=== PATIENT | male | born 1940 | race Caucasian/White ===

== ENCOUNTER 2023-10-29 15:45 | Inpatient (IN) | payer OTHER, SELFPAY ==
[2023-10-29 10:28] VITALS: BP 131/55
--- NOTE | 2023-10-29 12:18 | ED.GENMED ---
History of Present Illness
<GALINDO Chisholm Jr. Last Filed: 10/29/23 13:54>
General
Chief Complaint: Skin Problem
Source: patient
Exam Limitations: none
Time Seen by Provider: 10/29/23 10:45
Nursing documentation reviewed up to this point in time: agreed with
History of Present Illness
History of Present Illness:
83-year-old male with past medical history of chronic vascular disease CHF CAD, diabetes presenting to the emergency department today with concerns of some swelling increasing to the left leg as well as some clear yellow drainage earlier today as
well. Has been treated for possible right leg with Keflex over the past week. Denies any systemic symptoms chest pain shortness of breath nausea vomiting a fevers
Past History
<Peter Christensen Jr., PA-C - Last Filed: 10/29/23 13:54>
Past History
ED Past Medical History: CAD, HTN, Hypercholesterolemia and Other (Ischemic cardiomyopathy EF of 40%, her excisional atrial fib status post pacer defibrillator, inducible VT, hypertension)
ED Past Surgical History: Cardiac
Social History
Tobacco: Non-smoker
Alcohol: Occasional
Drug: None
Personal: Single
Living: with family
Employment: Retired
Family History
Family History: Other (Mother with gout and presumed diabetes)
Review of Systems
<GALINDO Chisholm Jr. Last Filed: 10/29/23 13:54>
Review of Systems
Allergies reviewed?: Yes
All Other Systems: ROS reviewed and negative except as documented in HPI and ROS
Phy Exam
<GALINDO Chisholm Jr. Last Filed: 10/29/23 13:54>
Physical Exam
Physical Exam:
GENERAL: Alert , in no apparent distress
EYE: pupils equal and reactive
NECK: Supple, no significant adenopathy.
ENT: o/p clr, mmm.
CARDIAC: Regular rate and rhythm .
LUNGS: Clear breath sounds bilaterally, no acute respiratory distress, no wheezes/rales/rhonchi
ABDOMEN: Soft, without focal tenderness, no r/g, no cvat
NEUROLOGICAL: Alert and oriented, no focal neuro deficits
SKIN: Significant skin changes to the lower extremities bilaterally mainly distal to the knee covering most of the you and posterior calf region with reddened hardened skin changes with dry peeling skin no significant tenderness palpation +2
pitting edema distal to the knees bilaterally. Does not cross into the feet bilaterally. There are some slight vague redness into the feet bilaterally. No significant tenderness to palpation bilaterally.
MUSCULOSKELETAL: No edema, well perfused.
PSYCH: Normal and appropriate interaction.
Course
<Peter Christensen Jr., PA-Maxx - Last Filed: 10/29/23 13:54>
Orders/Labs/Results
Orders:
Orders
10/29/23 Breakfast
2000 calorie (17 carb) Diabetic
At Your Request: Limited Participation
Fluid Restriction: 1500 mL/day (50 oz)
10/29/23 11:59
BMP [Basic Metabolic Panel] Urgent
10/29/23 12:34
Complete Blood Count/With Diff Urgent
10/29/23 14:42
Vancomycin [Vancocin] 2,000 mg 0.9% Sodium Chloride 500 ml [Nss] 500 ml IV NOW
10/29/23 15:21
Admit/Transfer Patient As Directed
Co-Sign Provider:
Level of Care: Inpatient admission
Assign to:: Telemetry
Physician / Group: elvis
Diagnosis: cellulits
Reason for Telemetry: Other
Other Reason for Telemetry: CHf
Date to Stop Telemetry: 10/31/23
Time to Stop Telemetry: 11:00
Reason for Hospitalization: cellulitis
Expected length of stay greater than two midnights?: Yes
ELOS- Estimated Length of Stay in days: 3
I certify the patient meets the requirements for IP care: Yes
10/29/23 15:22
PRN Pain Medication Management As Directed
May give lesser potent ordered pain med per pt: Yes
preference::
Protocol:: Medication orders for pain may be administered in a
manner that supports deferring to patient preference
when the pt is:
- Requesting an ordered lesser potent pain medication.
Least to most potent pain medications are defined
as: acetaminophen < NSAID < tramadol < opioids
(morphine, oxycodone, hydromorphone).
- Requesting a lesser dose of the same medication IF
ORDERED.
- Requesting a less intrusive route of administration
if both routes are prescribed by the provider (PO <
IV).
10/29/23 15:25
Code Status As Directed
Resuscitation Status: Full Code
10/29/23 15:32
Furosemide [Lasix] 40 mg IV NOW STA
10/29/23 16:10
Potassium Stat
10/29/23 19:42
Acetaminophen [Tylenol] 650 mg PO Q4HPRN PRN
Polyethylene Glycol Powder [Miralax] 17 grams PO DAILYPRN PRN
10/29/23 19:42
INFECTIOUS DISEASE CONSULT Routine
Consulting Provider: Zeynep Woodson
Was physician already notified: Yes
Activity As Directed
Activity Level: Out of Bed-Early Mobility
Intake/ Output As Directed
Frequency: Per unit guidelines
Vital Signs As Directed
Frequency: Per unit guidelines
Weight As Directed
Frequency: Daily
Ot Eval And Treat Routine
Pt Eval And Treat Routine
Activity Level: As Tolerated
DX Deep Vein Thrombosis Video Routine
10/29/23 20:00
Heparin 5,000 units SC Q12
HydrALAZINE [Apresoline] 25 mg PO BID
Pantoprazole [Protonix] 40 mg PO BID
10/29/23 22:00
Triamcinolone Cream [Aristocort/Triamcinolone 0.1% Cream] 1 applic TOPICAL TID
10/30/23 05:35
Basic Metabolic Panel IN AM
Complete Blood Count/No Diff IN AM
10/30/23 08:00
Allopurinol [Zyloprim] 300 mg PO DAILY
Amantadine [Symmetrel] 100 mg PO DAILY
Aspirin Low Dose EC [Aspir Low (Enteric Coated)] 81 mg PO DAILY
Metoprolol Xl [Toprol Xl] 100 mg PO DAILY
Sertraline HCl [Zoloft] 50 mg PO DAILY
Tamsulosin [Flomax] 0.4 mg PO DAILY
10/30/23 18:00
Atorvastatin [Lipitor] 20 mg PO QPM
10/31/23 06:00
Basic Metabolic Panel IN AM
Complete Blood Count/No Diff IN AM
10/31/23 11:00
DC Protocol for Telemetry ONCE
11/01/23 06:00
Basic Metabolic Panel IN AM
Complete Blood Count/No Diff IN AM
11/02/23 06:00
Basic Metabolic Panel IN AM
Complete Blood Count/No Diff IN AM
11/03/23 06:00
Basic Metabolic Panel IN AM
Abnormal Lab Results
10/29/23 10/29/23
11:59 12:34
RBC 3.63 L 10^6/uL
(4.70-6.10)
Hgb 11.4 L g/dL
(13.0-18.0)
Hct 34.4 L %
(39.0-52.0)
MCV 94.8 H fL
(80.0-94.0)
MCH 31.4 H pg
(27.0-31.0)
RDW 15.7 H %
(11.5-14.5)
MPV 10.7 H fL
(7.4-10.4)
Absolute Lymphs (auto) 1.1 L 10^3/uL
(1.2-3.4)
Absolute Monos (auto) 0.7 H 10^3/uL
(0.1-0.6)
Lymphocytes % 13.5 L %
(20.5-51.1)
BUN 49 H mg/dl
(9-20)
Creatinine 1.4 H mg/dL
(0.7-1.3)
Glucose 117 H mg/dl
(70-99)
10/29/23 12:34
10/29/23 11:59
Vital Signs
Initial and Last Documented VS:
Initial Vital Signs
Temp Pulse Resp BP Pulse Ox
98 F 60 16 131/55 98
10/29/23 10:28 10/29/23 10:28 10/29/23 10:28 10/29/23 10:28 10/29/23 10:28
Last Documented Vital Signs
Temp Pulse Resp BP Pulse Ox
98.1 F 61 18 110/52 93
10/30/23 23:19 10/30/23 23:19 10/30/23 23:19 10/30/23 23:19 10/30/23 23:19
<Maty Flores, - Last Filed: 10/31/23 01:07>
Orders/Labs/Results
Orders:
Orders
10/29/23 Breakfast
2000 calorie (17 carb) Diabetic
At Your Request: Limited Participation
Fluid Restriction: 1500 mL/day (50 oz)
10/29/23 11:59
BMP [Basic Metabolic Panel] Urgent
10/29/23 12:34
Complete Blood Count/With Diff Urgent
10/29/23 14:42
Vancomycin [Vancocin] 2,000 mg 0.9% Sodium Chloride 500 ml [Nss] 500 ml IV NOW
10/29/23 15:21
Admit/Transfer Patient As Directed
Co-Sign Provider:
Level of Care: Inpatient admission
Assign to:: Telemetry
Physician / Group: elvis
Diagnosis: cellulits
Reason for Telemetry: Other
Other Reason for Telemetry: CHf
Date to Stop Telemetry: 10/31/23
Time to Stop Telemetry: 11:00
Reason for Hospitalization: cellulitis
Expected length of stay greater than two midnights?: Yes
ELOS- Estimated Length of Stay in days: 3
I certify the patient meets the requirements for IP care: Yes
10/29/23 15:22
PRN Pain Medication Management As Directed
May give lesser potent ordered pain med per pt: Yes
preference::
Protocol:: Medication orders for pain may be administered in a
manner that supports deferring to patient preference
when the pt is:
- Requesting an ordered lesser potent pain medication.
Least to most potent pain medications are defined
as: acetaminophen < NSAID < tramadol < opioids
(morphine, oxycodone, hydromorphone).
- Requesting a lesser dose of the same medication IF
ORDERED.
- Requesting a less intrusive route of administration
if both routes are prescribed by the provider (PO <
IV).
10/29/23 15:25
Code Status As Directed
Resuscitation Status: Full Code
10/29/23 15:32
Furosemide [Lasix] 40 mg IV NOW STA
10/29/23 16:10
Potassium Stat
10/29/23 19:42
Acetaminophen [Tylenol] 650 mg PO Q4HPRN PRN
Polyethylene Glycol Powder [Miralax] 17 grams PO DAILYPRN PRN
10/29/23 19:42
INFECTIOUS DISEASE CONSULT Routine
Consulting Provider: Zeynep Woodson
Was physician already notified: Yes
Activity As Directed
Activity Level: Out of Bed-Early Mobility
Intake/ Output As Directed
Frequency: Per unit guidelines
Vital Signs As Directed
Frequency: Per unit guidelines
Weight As Directed
Frequency: Daily
Ot Eval And Treat Routine
Pt Eval And Treat Routine
Activity Level: As Tolerated
DX Deep Vein Thrombosis Video Routine
10/29/23 20:00
Heparin 5,000 units SC Q12
HydrALAZINE [Apresoline] 25 mg PO BID
Pantoprazole [Protonix] 40 mg PO BID
10/29/23 22:00
Triamcinolone Cream [Aristocort/Triamcinolone 0.1% Cream] 1 applic TOPICAL TID
10/30/23 05:35
Basic Metabolic Panel IN AM
Complete Blood Count/No Diff IN AM
10/30/23 08:00
Allopurinol [Zyloprim] 300 mg PO DAILY
Amantadine [Symmetrel] 100 mg PO DAILY
Aspirin Low Dose EC [Aspir Low (Enteric Coated)] 81 mg PO DAILY
Metoprolol Xl [Toprol Xl] 100 mg PO DAILY
Sertraline HCl [Zoloft] 50 mg PO DAILY
Tamsulosin [Flomax] 0.4 mg PO DAILY
10/30/23 18:00
Atorvastatin [Lipitor] 20 mg PO QPM
10/31/23 06:00
Basic Metabolic Panel IN AM
Complete Blood Count/No Diff IN AM
10/31/23 11:00
DC Protocol for Telemetry ONCE
11/01/23 06:00
Basic Metabolic Panel IN AM
Complete Blood Count/No Diff IN AM
11/02/23 06:00
Basic Metabolic Panel IN AM
Complete Blood Count/No Diff IN AM
11/03/23 06:00
Basic Metabolic Panel IN AM
Abnormal Lab Results
10/29/23 10/29/23
11:59 12:34
RBC 3.63 L 10^6/uL
(4.70-6.10)
Hgb 11.4 L g/dL
(13.0-18.0)
Hct 34.4 L %
(39.0-52.0)
MCV 94.8 H fL
(80.0-94.0)
MCH 31.4 H pg
(27.0-31.0)
RDW 15.7 H %
(11.5-14.5)
MPV 10.7 H fL
(7.4-10.4)
Absolute Lymphs (auto) 1.1 L 10^3/uL
(1.2-3.4)
Absolute Monos (auto) 0.7 H 10^3/uL
(0.1-0.6)
Lymphocytes % 13.5 L %
(20.5-51.1)
BUN 49 H mg/dl
(9-20)
Creatinine 1.4 H mg/dL
(0.7-1.3)
Glucose 117 H mg/dl
(70-99)
10/29/23 12:34
10/29/23 11:59
Vital Signs
Initial and Last Documented VS:
Initial Vital Signs
Temp Pulse Resp BP Pulse Ox
98 F 60 16 131/55 98
10/29/23 10:28 10/29/23 10:28 10/29/23 10:28 10/29/23 10:28 10/29/23 10:28
Last Documented Vital Signs
Temp Pulse Resp BP Pulse Ox
98.1 F 61 18 110/52 93
10/30/23 23:19 10/30/23 23:19 10/30/23 23:19 10/30/23 23:19 10/30/23 23:19
<Peter Christensen Jr., PA-C - Last Filed: 10/29/23 13:54>
MDM/Problems Addressed
MDM/Problems Addressed:
83-year-old male presenting to the emergency department with concerns potential worsening redness and swelling to the lower extremities bilaterally left worse than the right. Recently treated for possible cellulitis with Keflex over the past week
for the right side. Has been followed closely by his primary care doctor. I did discuss this with the primary care doctor, Dr. Garcia. He believes that the legs today look worse than they have concerning for possibly worsening infection.
Considering he has been on an appropriate antibiotic for 1 week plan to treat with IV antibiotics
<Peter Christensen Jr., PA-C - Last Filed: 10/29/23 13:54>
*Critical Care Note
Total Time (30-74mins, 75-104mins- exclusive of procedures): Not Applicable
ED Attending Note
<Peter Christensen Jr., PA-C - Last Filed: 10/29/23 13:54>
-
Portions of this chart may have been created with voice recognition software.� Occasional wrong word or��sound alike� substitutions may have occurred due to the inherent limitations of voice recognition software.
<Maty Flores DO - Last Filed: 10/31/23 01:07>
ED Attending Note
Patient seen and examined by attending physician: Yes
I performed the substantive portion of visit, reviewed & personally made and approve the management plan that is documented in note by myself or ROMULO.: Yes
ED Attending Note:
I have reviewed and agree with Peter Christensen PA-C history and treatment plan. My exam revealed bilateral lower extremity edema and erythema weeping serous drainage. Heart RRR, lungs clear with no wheezing or rales, speaking full unlabored sentences.
?venous stasis vs cellulitis. Pt states he has been compliant with lasix. Given patient has been on keflex for 1 week and PCP who has been following patient's progress daily states wounds appear worse, admit for IV antibiotics.
Discharge Plan
Departure
Patient Disposition: Admit
Date of Disposition: 10/29/23
Time of Disposition: 13:54
Admit to: Med/Surg
Admit to doctor: Madeleine
Presentation/result/management discussed w/ accepting MD/DO: Hospitalist
Patient with high blood pressure during this ER visit?: No
Condition: Good
Covid-19: Not Applicable
Discharge Problem:
Cellulitis
Interventions
Interventions:
*Risk Screen - Suicide Last Done: 10/29/23 11:01
*General Assessment Last Done: 10/29/23 11:01
*Neglect/Abuse Screening Last Done: 10/29/23 11:01
*ED COVID-19 Vaccine History Last Done: 10/29/23 20:36
*Nursing Disposition Last Done: 10/29/23 19:23
ED-Skin Assessment Last Done: 10/29/23 11:01
Discharge Date and Time
Discharge Date/Time: 10/29/23 19:25
[2023-10-29 12:27] LABS: Blood Urea Nitrogen 49 mg/dl (9-20); Calcium 9.2 mg/dl (8.4-10.2); Carbon Dioxide 27 mmol/L (22-30); Chloride 104 mmol/L (98-107); Glucose 117 mg/dl (70-99); Sodium 139 mmol/L (135-145); eGFR 50.18
[2023-10-29 12:56] LABS: % Basophils 0.7 % (0-2); % Eosinophils 1.9 % (0-6); % Immature Granulocytes 0.5 % (0-0.5); % Lymphocytes 13.5 % (20.5-51.1); % Monocytes 8.5 % (1.7-9.3); % Neutrophils 74.9 % (42.2-75.2); Absolute Basophils 0.1 10^3/uL (0-0.2); Absolute Eosinophils 0.2 10^3/uL (0-0.7); Absolute Lymphocytes 1.1 10^3/uL (1.2-3.4); Absolute Monocytes 0.7 10^3/uL (0.1-0.6); Absolute Neutrophils 6.3 10^3/uL (1.4-6.5); Hematocrit 34.4 % (39.0-52.0); Hemoglobin 11.4 g/dL (13.0-18.0); Mean Corp Hgb Conc. 33.1 g/dL (33.0-37.0); Mean Corpuscular Hgb 31.4 pg (27.0-31.0); Mean Corpuscular Volume 94.8 fL (80.0-94.0); Mean Platelet Volume 10.7 fL (7.4-10.4); Nucleated Red Blood Cells % 0 % (-); Platelet Count 207 10^3/uL (130-400); Red Blood Cell Count 3.63 10^6/uL (4.70-6.10); Red Cell Dist. Width 15.7 % (11.5-14.5); White Blood Cell Count 8.4 10^3/uL (4.8-10.8)
[2023-10-29 14:39] VITALS: BMI 30.3
--- NOTE | 2023-10-29 14:57 | HPS.HSE ---
Family Physician
-
Family Physician: Andrés Eason
Chief Complaint
-
b/l Le redness and swelling
History of Present Illness
83-year-old male with past medical history of chronic vascular disease CHF CAD, diabetes presenting with right LE redness, worsening edema, skin tear for past ten days. he started taking Keflex for past one week with no improvement in his symptoms.
last night he noticed worsening left LE redness, swelling and yellowish drainage from left LE. denied fever, chills, chest pain, sob. denied AUGUSTINE, dizzy or syncopal episode. denied abdominal pain, n,v,d. denied dysuria or hematuria.
received iv vancomycin in ER. admitting for further management.
Medical History
Past Medical History
Past Medical History: Reports Other
Additional Past Medical History:
1. Mixed lipidemia.
2. Ischemic cardiomyopathy.
3. DVT on right lower extremity 2012.
4. Gout.
5. History of pulmonary embolism 2012.
6. Parkinson's disease.
7. Hypercoagulable state, secondary.
8. 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
9. Abdominal aortic atherosclerosis.
10.History of myocardial infarction.
11.Hypertensive chronic kidney disease, stage 1 through stage IV.
12.Coronary artery disease - he has an automatic cardioverter-
defibrillator present.
13.Essential hypertension.
14.History of alcoholism, but in recovery.
15.History of major depressive disorder.
16.Atrial fibrillation.
17.Ex-smoker.
Past Surgical History: Reports Other
Additional Past Surgical History:
1. ICD.
2. Tonsillectomy.
3. Carotid surgery 2017.
4. ICD generator change in 2014.
Social History
Tobacco: Non-smoker
Alcohol: Occasional
Drug: None
Family History
Family History: Not pertinent
Allergies / Home Medications
Allergies reflects when Allergies were last updated in [facility].
Home Medications with original date entered in [facility]
Allergy/Medication List:
Allergies
Allergy/AdvReac Type Severity Reaction Status Date / Time
rivaroxaban [From Xarelto] Allergy GI Bleed Verified 10/29/23 10:28
Home Medications
aspirin 81 mg tablet,delayed release 81 mg PO DAILY Blood clot prevention/tx 05/14/18
hydralazine 25 mg tablet 25 mg PO BID Blood pressure 05/14/18
metoprolol succinate 100 mg tablet,extended release 24 hr 100 mg PO DAILY Arrhythmia 05/14/18
sertraline 50 mg tablet 50 mg PO DAILY Mental Health 05/14/18
pantoprazole 40 mg tablet,delayed release 40 mg PO BID Gastrointestinal issue 06/05/18
Digetive Advantage Probiotic 1 cap PO DAILY Gastrointestinal issue 08/20/20
allopurinol 300 mg tablet 300 mg PO DAILY Gout 08/20/20
simvastatin 40 mg tablet 40 mg PO QPM High cholesterol 08/20/20
acetaminophen 325 mg tablet 650 mg PO Q6HPRN PRN mild pain/fever>101 05/30/21
furosemide 80 mg tablet 80 mg PO DAILY Fluid retention/Swelling 05/30/21
amantadine HCl 100 mg tablet 100 mg PO DAILY Neurological Condition 07/18/22
polyethylene glycol 3350 17 gram oral powder packet 17 g PO DAILYPRN PRN constipation 07/18/22
potassium citrate 10 mEq (1,080 mg) tablet,extended release 10 meq PO BID Electrolyte Repletion 07/18/22
tamsulosin 0.4 mg capsule 0.4 mg PO DAILY Urinary Issue 07/18/22
cephalexin 500 mg capsule 500 mg PO Q8 Infection 10/29/23
triamcinolone acetonide 0.1 % topical cream 1 applic topical TID Skin Issues 10/29/23
Review of Systems
-
Constitutional: Reports No Symptoms
EENT: Reports No Symptoms
Respiratory: Reports No Symptoms
Cardiac: Reports No Symptoms
Abdomen/GI: Reports No Symptoms
: Reports No Symptoms
Musculoskeletal: Reports No Symptoms
Skin: Reports Other (b/l LE redness, swelling, skin tear)
Neurological: Reports No Symptoms
Endocrine: Reports No Symptoms
Hematologic/Lymphatic: Reports No Symptoms
Psych: Reports No Symptoms
Physical Exam
Vital Signs
Vital Signs
Temp Pulse Resp BP Pulse Ox
98 F 60 16 131/55 98
10/29/23 10:28 10/29/23 10:28 10/29/23 10:28 10/29/23 10:28 10/29/23 10:28
Physical Exam
General: Well Developed, Well Nourished and No Apparent Distress
HEENT: NormoCephalic, Moist mucous membranes and Atraumatic
Respiratory: Clear
Cardiac: S1/S2 and Regular Rhythm; No Murmur or Rub
GI: Soft, Non Tender, Non Distended and Normal Bowel Sounds; No Organomegaly
Rectal: Deferred by Provider
Musculoskeletal: No Clubbing, No Cyanosis and No Edema
Skin: Rash and Other (b/l Le redness, swelling, skin tear)
Neuro: AO x 3 and Nonfocal/grossly intact
Psych: Calm
Laboratory Results
-
10/29/23 12:34
10/29/23 11:59
Data Reviewed
-
Lab Data: Labs Reviewed by me
Impression/Plan
-
# b/l lower extremity cellulitis
-Failed outpatient therapy
-Received Vanco in ER
-Continue IV Vanco
-Tylenol as needed for fever
-ID consult
# Anemia of chronic disease
-Hemoglobin stable at 11.4
-No active bleeding
-Continue to trend
# CKD 3A
-Creatinine 1 4, BUN 49
-continue to trend
#Diet-controlled DM2
,-1800 ADA healthy heart diet
#Gerd
-Protonix 40 mg twice daily
#Chronic CHF with reduced EF
-Lasix 80 iv once in ER
-continue iv Lasix
-I/O, daily weights
-recent ECHO with Mildly reduced left ventricular systolic function. Left ventricular ejection
fraction is 50%.
#CAD�MA
#AICD/pacemaker 1999
Continue Zocor 40 mg at bedtime,Toprol-XL 1 mg daily,Aspirin 81 daily
#HTN
-BP stable
-Hydralazine, metoprolol continued with hold parameters
#Parkinson's dz
-Continue amantadine
#Depression-Zoloft 50 daily
#Gout-Allopurinol 300 mg daily
# BPH
-Flomax continued
#Right CEA 02/16/2018
#Right lower extremity DVT
#DVT prophylaxis
-Heparin subcu
#full code
[2023-10-29] MEDS: VANCOCIN 540 MG IV (15:02)
[2023-10-29] MEDS: LASIX 40 MG IV (16:10)
[2023-10-29 16:23] VITALS: BP 134/69
--- NOTE | 2023-10-29 16:30 | W.PN.UPDATE ---
Update Note
Progress Note Update
83 male history of CAD, chronic sustolic congestive heart failure s/p icd, type 2 diabetes, CKD, Parkinson's disease, gout, hyperlipidemia, BPH, abdominal aortic aneurysm, atrial fibrillation who is presenting with chronic bilateral lower extremity
swelling evidence of chronic venous insufficiency and lymphedema on exam associated right lower extremity erythema draining/weeping previously on p.o. antibiotics with Keflex prescribed by PCP however this morning notes left foot beginning to weep
and drain. Therefore his PCP sent him to the hospital.
In the ED hemodynamically stable with a leukocyte count of 8.4, hemoglobin 11.4 at baseline, creat 1.4, sodium 139, blood glucose 117
On physical exam he has noted to have bilateral pedal edema 2+ along with lymphedema changes chronic venous stasis changes with superficial open wound on the right lower extremity anterior surface and small superficial wounds on the lateral surface
of the left leg. Note that both legs are draining however clear not purulent. ICD no abdomen soft nontender nondistended however obese.
Bilateral lower extremity wounds with right lower extremity cellulitic changes as there is evidence of erythema not so much warm though. Therefore at this time as he was treated with Keflex as outpatient will initiate vancomycin, even though this
is more consistent with a nonpurulent cellulitis. Wound care to evaluate. ID consulted. Follow-up blood culture
-Would give 80 mg of IV Lasix x 1 to improve lower extremity edema which I would expect to see improvement in his clinical hydro overall with this
CHF s/p ICD, last EF on record 50% from 2021 can continue p.o. Lasix for which he takes daily 80 mg and every other day 80 mg,
[place] vs progressive CKD which could be renal vein congestion. Will monitor Cr. Avoid Nephrotoxins/hypotension. Can consider obtaining a Urine nephrology panel. Monitor UOP.
HTN continue antihypertensives
BPH continue flomax
[2023-10-29 17:09] LABS: Potassium 3.9 mmol/L (3.5-5.1)
[2023-10-29 17:35] VITALS: BP 129/66
[2023-10-29 19:51] VITALS: BP 121/64; BMI 30.6
[2023-10-29] MEDS: HEPARIN 5000 UNITS SC (20:19)
[2023-10-29] MEDS: APRESOLINE 25 MG PO (20:19)
[2023-10-29] MEDS: PROTONIX 40 MG PO (20:19)
--- NOTE | 2023-10-29 20:19 | PHA.VAN.IN ---
Assessment
- Assessment
Renal Function: Appears elevated from baseline (08/12/21 BASELINE SCR: 1.2)
Concomitant Antimicrobials: NONE
- Previous Dosing Experience
Previous Regimen: NONE
AUC Dosing Plan
- Dosing Variables
Dosing Weight (kg): 91.2
Dosing CrCl (ml/min): 45
Vd coefficient (L/kg): 0.6
- Empiric Dosing
Initial / Loading Dose: 2GM
Maintenance Regimen: 1GM IV Q24H
Estimated AUC (mcg*h/mL): 447
Estimated Peak (mcg*h/mL): 28.9
Estimated Trough (mcg/ml): 11.1
Estimated Half Life (H): 16.6
Pharmacokinetics Vancomycin I
- -
Patient Age: 83
Patient Sex: Male
Vancomycin Day #: 1
Indication: Skin And Soft Tissue (BILATERAL LEG WOUNDS )
Requesting Provider: JUSTIN GLEZ
Height / Weight:
Height 5 ft 8 in
Actual Weight 91.172 kg
Pertinent Past Medical History: DM
- Vital Signs / Lab Results
Temp Pulse Resp BP Pulse Ox
97.7 F 61 16 121/64 96
10/29/23 19:51 10/29/23 19:51 10/29/23 19:51 10/29/23 19:51 10/29/23 19:51
Lab Results - Hematology
10/29/23 10/29/23
11:59 12:34
WBC Cancelled 8.4
Lab Results - Chemistry
10/29/23
11:59
BUN 49 H
Creatinine 1.4 H
[2023-10-29 20:37] VITALS: BMI 30.6
[2023-10-29] MEDS: ARISTOCORT/TRIAMCINOLONE 0.1% CREAM 1 APPLIC TOPICAL (22:09)
[2023-10-29 23:11] VITALS: BP 115/53
[2023-10-30] VITALS (9 sets, daily range): BP systolic 110–126; BP diastolic 47–59; PULSE 60–74; O2SAT 96–97; BMI 30.4
[2023-10-30] MEDS: VANCOCIN 200 IV (06:31)
[2023-10-30 06:47] LABS: Hematocrit 33.8 % (39.0-52.0); Hemoglobin 11.2 g/dL (13.0-18.0); Mean Corp Hgb Conc. 33.1 g/dL (33.0-37.0); Mean Corpuscular Hgb 31.4 pg (27.0-31.0); Mean Corpuscular Volume 94.7 fL (80.0-94.0); Mean Platelet Volume 10.9 fL (7.4-10.4); Platelet Count 194 10^3/uL (130-400); Red Blood Cell Count 3.57 10^6/uL (4.70-6.10); Red Cell Dist. Width 15.4 % (11.5-14.5); White Blood Cell Count 9.7 10^3/uL (4.8-10.8)
[2023-10-30 07:04] LABS: NT-proBNP 10100 pg/ml
[2023-10-30 07:11] LABS: Blood Urea Nitrogen 44 mg/dl (9-20); Calcium 9.2 mg/dl (8.4-10.2); Carbon Dioxide 25 mmol/L (22-30); Chloride 104 mmol/L (98-107); Estimated Creatinine Clearance 48 ml/min; Glucose 112 mg/dl (70-99); Potassium 4.1 mmol/L (3.5-5.1); Sodium 140 mmol/L (135-145); eGFR 54.85
[2023-10-30 07:45] LABS: Glucose - Point of Care 141 mg/dl (70-99)
--- NOTE | 2023-10-30 08:00 | PHA.VAN.FU ---
Vancomycin Assessment / Plan
- Assessment
Renal Function: SCR Decreasing
WBC's are: WNL
In the past 24 hrs, patient has been: Afebrile
- Dosing Plan
Continue: Vanc 1000mg Q24H
- Monitoring Plan
No level(s) ordered at this time: consider levels in next few days
- Follow Up
Pharmacy will continue to follow.
Vancomycin Follow UP
- -
Patient Age: 83
Patient Sex: Male
Vancomycin Day #: 2
Indication: Skin And Soft Tissue
Requesting Provider: Alana Adhikari
Pertinent Antimicrobial Allergies:
no pertinent antibiotic allergies
Height / Weight:
Height 5 ft 8 in
Actual Weight 90.628 kg
Pertinent Past Medical History: DM, CKD
- Vital Signs / Lab Results
Temp Pulse Resp BP Pulse Ox
97.4 F 62 16 119/47 93
10/30/23 03:40 10/30/23 03:40 10/30/23 03:40 10/30/23 03:40 10/30/23 03:40
Lab Results - Hematology
10/29/23 10/29/23 10/30/23
11:59 12:34 05:35
WBC Cancelled 8.4 9.7
Lab Results - Chemistry
10/29/23 10/30/23
11:59 05:35
BUN 49 H 44 H
Creatinine 1.4 H 1.3
Estimated Creat Clear 48
--- NOTE | 2023-10-30 08:25 | CON.ID ---
Consultation
-
Date/Time Consultation Requested: 10/29/20231941
Date/Time Consultation Performed: 10/30/2023 0830
Requesting Provider: Dr. Chaz Whitlock
Performing Provider: Dr. Madai Ragland
Reason for Consultation: LE Cellulitis
Chief Complaint / Past History
Chief Complaint
Both Leg swelling
History of Present Illness
83-year-old male with history of diabetes mellitus type 2, Parkinson's, heart failure with preserved EF, atrial fibrillation, ppm/icd placement who presented to the hospital October 28 due to bilateral lower extremities swelling with weeping. Patient
reports he has intermittent bilateral extremity edema. He is not compliant with compression stockings. He states it is very difficult to put on and take off the compression stockings. About 1-1/2-week ago, his right leg became swollen. It
developed blisters and started draining yellow fluids. The right leg swelling started then to improve. However 2 days ago, the left leg became edematous and weeping yellow fluid. He has gained 5 pounds. He was therefore sent to the ER. Patient
without fevers or chills. He reports no worsening erythema of both legs. He has chronic discoloration of his legs. The weeping has improved today. Otherwise no other complaints.
Past History
Additional Past Medical History:
DM2
Parkinson
HTN
Afib
PPM/ICD
CAD
BPH s/p TURP
HFprEF
CKD3a
Recurrent diverticulitis
Gout
Depression
RLE DVT
R CEA
Allergy History:
rivaroxaban [From Xarelto] Allergy (Verified 10/29/23 10:28)
GI Bleed
Medications Reviewed: Yes
Current Antibiotics:
Vancomycin
Social History
Tobacco: Non-Smoker
Alcohol: Former
Drug: None
Living: Assisted Living
Family History
Family History: Not Pertinent
Review of Systems
Review of Systems
General: Negative Fever, Chills or Change in Appetite
HEENT: Negative Sinus Problems, Headache or Pharyngitis
Cardiovascular: Negative Chest Pain or Dyspnea
Respiratory: Negative Dyspnea or Cough
Gasteroenterology: Other (no diarrhea); Negative Nausea or Vomiting
Genital / Urological: Negative Dysuria or Flank Pain
Endocrine: Negative Weakness
All systems: All other systems were reviewed and were negative
Vital Signs
Temp Pulse Resp BP Pulse Ox
97.4 F 62 16 119/47 93
10/30/23 03:40 10/30/23 03:40 10/30/23 03:40 10/30/23 03:40 10/30/23 03:40
Physical Exam
Physical Exam
Constitutional: No Acute Distress and Comfortable
Eyes: No Conjunctival Hemorrhage and Sclera Anicteric
Cardiovascular: Regular Rate and S1/S2
Pulmonary: Clear
Gastrointestinal: Soft, Non Tender and Non Distended
Genito-Urinary: Negative CVA Tenderness
Extremities: Edema (LLE 3-4+, RLE 2-3+), Erythema (Dark chronic discoloration BLE, no bright erythema, no significant warmth) and Venous Insufficiency (BLE)
Skin: Dry (BLE)
Wound: Other (Superficial wounds from previous blisters - several on right you with yellow strike-through on gauze; Left calf- few superficial wounds scant yellow drainage. )
Lab / Diagnostic Study Results
10/30/23 05:35
10/30/23 05:35
Abs Immat Gran (auto) 0.0 10^3/uL (0-0.05) 10/29/23 12:34
Absolute Neuts (auto) 6.3 10^3/uL (1.4-6.5) 10/29/23 12:34
Absolute Lymphs (auto) 1.1 10^3/uL (1.2-3.4) L 10/29/23 12:34
Absolute Monos (auto) 0.7 10^3/uL (0.1-0.6) H 10/29/23 12:34
Absolute Basos (auto) 0.1 10^3/uL (0-0.2) 10/29/23 12:34
Immature Gran % 0.5 % (0-0.5) 10/29/23 12:34
Neutrophils % 74.9 % (42.2-75.2) 10/29/23 12:34
Lymphocytes % 13.5 % (20.5-51.1) L 10/29/23 12:34
Monocytes % 8.5 % (1.7-9.3) 10/29/23 12:34
Eosinophils % 1.9 % (0-6) 10/29/23 12:34
Basophils % 0.7 % (0-2) 10/29/23 12:34
Assessment / Plan
# BLE edema from CHF
- No cellulitis
- Yellow weepage was from blisters due to edema. Superficial wounds do not look infected.
- DC Vancomycin.
- Wound care.
-Elevate BLE
- Pt noncompliant with compression.
Discussed importance of compression to control edema.
Can try KINDRA-Wrap - he can adjust tightness and easier application.
ID will sign off.
Care Review
Plan reviewed with: Physician (Dr. Jesica Whitlock)
[2023-10-30] MEDS: APRESOLINE 25 MG PO ×2 (08:51→20:44)
[2023-10-30] MEDS: PROTONIX 40 MG PO ×2 (08:51→20:44)
[2023-10-30] MEDS: LASIX 80 MG PO ×2 (08:51→20:44)
[2023-10-30] MEDS: ASPIR LOW (ENTERIC COATED) 81 MG PO (08:51)
[2023-10-30] MEDS: TOPROL XL 100 MG PO (08:51)
[2023-10-30] MEDS: SYMMETREL 100 MG PO (08:51)
[2023-10-30] MEDS: ZYLOPRIM 300 MG PO (08:52)
[2023-10-30] MEDS: HEPARIN 5000 UNITS SC ×2 (08:52→20:44)
[2023-10-30] MEDS: ZOLOFT 50 MG PO (08:52)
[2023-10-30] MEDS: FLOMAX 0.4 MG PO (08:52)
[2023-10-30] MEDS: LASIX 80 MG IV (08:54)
[2023-10-30] MEDS: ARISTOCORT/TRIAMCINOLONE 0.1% CREAM 1 APPLIC TOPICAL ×2 (08:57→15:32)
[2023-10-30 11:44] LABS: Glucose - Point of Care 128 mg/dl (70-99)
--- NOTE | 2023-10-30 12:00 | W.PN.HOSP.TC ---
Today's Communication/Plan
-
.
Assessment / Plan
Assessment / Plan
NAD, resting comfortably in bedside chair
Scleral anicteric
Moist mucous membranes
No JVD
CTA bilateral
Normal S1-S2 no murmurs
Soft nontender nondistended bowel sounds active
b/l le edema, chronic venostasis changes, wounds are covered
Moves extremities spontaneously
AAOx3
Acute on chornic HFpEF exacterbation (likely secondary to non-complaint diet)
-IV diuretics
-Follow renal function
-2d echo repeat ordered
-Keep K>4, Mg>2
-HF diet, 1500cc fluid restrict
-Monitor UOP
-Daily weights
-Cards consult
B/l LE swelling
-Stop IV Vanc per ID recs- agree with this
-Compression stokcing
-Wound care
-Diuresis
Gout
-Continue allopurinol
-Monitor for flare
[place] vs Progressive CKD
-Cr back to baseline.
-Likely was related to renal vein congestion
-Now if develops [place] then likely related to over diuresis
HTN
-Continue antihypertensives
BPH
-Continue flomax
HLD
-Continue Statin tx
Anticipated Discharge: 24 - 48 hours
Subjective/Interval History
-
Date of Service: October 30, 2023
seen and examined
no new complaints
no acute overniggt events
sitting in bedside chair. asking for gingerale.
-states he drinks a lot of sodas
-eats salty deli meats and does not choose no added salt options
Objective Data
-
Labs:
Laboratory Results
10/30/23
05:35
WBC 9.7
Hgb 11.2 L
Hct 33.8 L
Plt Count 194
Sodium 140
Potassium 4.1
Chloride 104
Carbon Dioxide 25
BUN 44 H
Creatinine 1.3
Glucose 112 H
Calcium 9.2
Vital Signs:
Vital Signs
Temp Pulse Resp BP Pulse Ox
97.6 F 62 18 123/59 96
10/30/23 11:45 10/30/23 11:45 10/30/23 11:45 10/30/23 11:45 10/30/23 11:45
I&O
10/29/23 10/30/23 10/31/23
06:59 06:59 06:59
Intake Total 680 / 680
Output Total 1100 / 1100
Balance -420 / -420
--- NOTE | 2023-10-30 13:40 | CON.CAR ---
Addendum entered and electronically signed by René Dennis MD 10/30/23 14:28:
Patient seen and examined in collaboration with SYSTEM OPERATOR; agree with below.
-Patient well-known to me in the outpatient setting; extensive cardiac history as outlined below, including CAD, ischemic cardiomyopathy, ICD, atrial fibrillation, chronic edema, and obesity.
-Patient was diuresed with IV Lasix on admission.
-Recommend increasing patient's daily home dose of Lasix to 80 mg twice daily every day of the week.
-Treatment of cellulitis as per primary team.
-Outpatient follow-up with Cardiology.
Original Note:
Consultation
Consultation Request
Date/Time Consultation Requested: 10/30/23 11:55a
Date/Time Consultation Performed: 10/30/23 1:30p
Requesting Provider: Dr. Whitlock
Performing Provider: DAVEY Maldonado for Dr. Dennis
Reason for Consultation: LE edema
Medical History
-
Chief Complaint: weeping LE with edema/weight gain
History of Present Illness:
Mr. Abarca is an 83 yo male with CAD (chronically occluded RCA--2000), ICM with improved LVEF, now 50-55%, status-post [employer] ICD (initial implant 2000; generator changes in 2004, on 04/02/10, and 08/20/20), permanent atrial fibrillation
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
status-post right carotid endarterectomy (01/29/18), likely left proximal subclavian stenosis, hypertension, hyperlipidemia, moderate tricuspid regurgitation, pulmonary hypertension, chronic renal insufficiency, prediabetes, anemia, BPH (status-post
TURP 07/31/22), depression, and Parkinson's disease with ambulatory dysfunction (ambulates with walker assistance), who presents to the ER with c/o 5 lb weight gain and increased LE edema with weeping. He is admitted to the hospitalist service and we
are consulted for LE edema, proBNP 10k. He denies any SOB/VILLALOBOS or chest pain. He was treated with IV Lasix with improvement in his weight. As outpatient he takes Lasix 80mg daily and every other day 80mg in the afternoon.
Past Medical History
Past Medical History: Other (as above)
Past Surgical History: Other (as above)
Social History
Tobacco: Non-Smoker
Alcohol: None
Living: [facility]
Family History
Family History: Reviewed & Not Pertinent
Allergies / Home Medications
Allergy/AdvReac Type Severity Reaction Status Date / Time
rivaroxaban [From Xarelto] Allergy GI Bleed Verified 10/29/23 10:28
�Medication �Instructions �Recorded �Confirmed �Type
aspirin 81 mg tablet,delayed 81 mg PO DAILY Blood clot 05/14/18 10/29/23 History
release prevention/tx
hydralazine 25 mg tablet 25 mg PO BID Blood pressure 05/14/18 10/29/23 History
metoprolol succinate 100 mg 100 mg PO DAILY Arrhythmia 05/14/18 10/29/23 History
tablet,extended release 24 hr
sertraline 50 mg tablet 50 mg PO DAILY Mental Health 05/14/18 10/29/23 History
pantoprazole 40 mg tablet,delayed 40 mg PO BID Gastrointestinal issue 06/05/18 10/29/23 History
release
Digetive Advantage Probiotic 1 cap PO DAILY Gastrointestinal 08/20/20 10/29/23 History
issue
allopurinol 300 mg tablet 300 mg PO DAILY Gout 08/20/20 10/29/23 History
simvastatin 40 mg tablet 40 mg PO QPM High cholesterol 08/20/20 10/29/23 History
acetaminophen 325 mg tablet 650 mg PO Q6HPRN PRN mild 05/30/21 10/29/23 History
pain/fever>101
furosemide 80 mg tablet 80 mg PO DAILY Fluid 05/30/21 10/29/23 History
retention/Swelling
amantadine HCl 100 mg tablet 100 mg PO DAILY Neurological 07/18/22 10/29/23 History
Condition
polyethylene glycol 3350 17 gram 17 g PO DAILYPRN PRN constipation 07/18/22 10/29/23 History
oral powder packet
potassium citrate 10 mEq (1,080 10 meq PO BID Electrolyte Repletion 07/18/22 10/29/23 History
mg) tablet,extended release
tamsulosin 0.4 mg capsule 0.4 mg PO DAILY Urinary Issue 07/18/22 10/29/23 History
cephalexin 500 mg capsule 500 mg PO Q8 Infection 10/29/23 10/29/23 History
triamcinolone acetonide 0.1 % 1 applic topical TID Skin Issues 10/29/23 10/29/23 History
topical cream
Review of Systems
-
History Source: Patient
All other systems: Negative unless noted
Physical Exam
Vital Signs
Temp Pulse Resp BP Pulse Ox
97.6 F 62 18 123/59 96
10/30/23 11:45 10/30/23 11:45 10/30/23 11:45 10/30/23 11:45 10/30/23 11:45
Lab Results
10/30/23 05:35
10/30/23 05:35
Dtz-Y-Dumaypaygng Pept 85221 pg/ml 10/30/23 05:35
Physical Exam
General: Well Developed, Well Nourished and No Apparent Distress
HEENT: Normocephalic, Anicteric and Moist Mucous Membranes
Respiratory: Clear and Non Labored Respirations
Cardiac: S1/S2, Regular Rhythm (vpaced) and Peripheral Edema (mild b/l LE edema, right LE wrapped, chronic venous stasis changes b/l that are unchanged)
Breast: Deferred by me
GI: Soft, Non Distended and Normal Bowel Sounds
Rectal: Deferred by Provider
Genito-urinary: No Costovertebral Tender
Musculoskeletal: No Clubbing and No Cyanosis
Skin: Warm and Dry
Neuro: AO x 3
Psych: Calm
Impression / Plan
-
LE edema - with skin weeping.
- weight gain now weight loss with IV Lasix.
- compression stockings.
- recommend Lasix PO 80mg BID.
HFpEF - acute on chronic.
- EF 50-55% on echo today, unchanged.
- Lasix as above.
- compression stockings b/l LE.
Afib - permanent.
- rate controlled on Toprol.
- elevated [id number] VASC score but not on OAC due to h/o severe GIB.
ICD - [employer] device with normal function.
- no discharges.
HTN - stable.
- continue Toprol, hydralazine, Lasix.
HLD - stable on Zocor, continue.
Data Reviewed
-
Medical Tests (Nuc Med, Echo etc): Report Reviewed by me
Labs: Labs Reviewed by me
Old Records: Reviewed
--- NOTE | 2023-10-30 14:41 | WOUNDNOTE ---
[facility] RN NOTE: Reviewed chart and met with patient. Patient reports not wearing compression at home and states he does not like. Compression was ordered prior to assessment and will be applied by CHASE Blair. Patient has superficial LE bilateral wounds.
Minimal drainage was noted and wound beds were pink. Wound care provided as ordered. Patient reports fair appetite and demonstrates good mobility with walker. Per RN, sacrum is blanchable and intact. Heels intact. Will continue to follow as needed.
--- NOTE | 2023-10-30 16:49 | CM ---
Addendum entered by Maria L Mcneal RN 10/30/23 16:57:
Seen by wound care nurse.
Original Note:
Patient from [facility] with Hx Parkinsons Dz with Dx HF, B/l LE swelling. Room air. PT & OT Evals; no therapy needs.
Spoke with patient's daughter Jojo, who is GI Office Nurse;
the patient resides alone at and is forgetful at baseline.
He has been mostly independent with ADLs and ambulates using his RW.
DME - [facility]W
VN- prior [facility]
Prior [facility]
PCP - Andrés Hammond
Pharmacy - [facility]
Updated daughter on PT/OT evals.
She would like to speak with Dr Whitlock today about her father's status---> message sent to Dr Whitlock.
Plan contact [facility] about patient's return.
Plan return to [facility] when medically ready.
[2023-10-30 17:02] LABS: Glucose - Point of Care 145 mg/dl (70-99)
[2023-10-30] MEDS: LIPITOR 20 MG PO (17:21)
[2023-10-30] MEDS: ARISTOCORT/TRIAMCINOLONE 0.1% CREAM TOPICAL (20:45)
[2023-10-30 21:28] LABS: Glucose - Point of Care 124 mg/dl (70-99)
[2023-10-31 03:20] VITALS: BP 105/55
[2023-10-31 06:00] VITALS: BMI 30.5
[2023-10-31 07:22] LABS: Glucose - Point of Care 111 mg/dl (70-99)
[2023-10-31 07:51] VITALS: BP 130/60
[2023-10-31 08:52] LABS: Blood Urea Nitrogen 44 mg/dl (9-20); Calcium 9.2 mg/dl (8.4-10.2); Carbon Dioxide 28 mmol/L (22-30); Chloride 99 mmol/L (98-107); Estimated Creatinine Clearance 45 ml/min; Glucose 114 mg/dl (70-99); Potassium 3.5 mmol/L (3.5-5.1); Sodium 137 mmol/L (135-145); eGFR 50.18
--- NOTE | 2023-10-31 09:08 | W.PN.HOSP.TC ---
Today's Communication/Plan
-
discharge planning
Assessment / Plan
Assessment / Plan
NAD, resting comfortably in bedside chair
Scleral anicteric
Moist mucous membranes
No JVD
CTA bilateral
Normal S1-S2 no murmurs
Soft nontender nondistended bowel sounds active
b/l le edema, chronic venostasis changes, wounds are covered, wearing compression stockings, legs pitting edema improved to 1+
Moves extremities spontaneously
AAOx3
Acute on chornic HFpEF exacterbation (likely secondary to non-complaint diet)
-IV diuretics
-Follow renal function
-2d echo repeat ordered
-Keep K>4, Mg>2
-HF diet, 1500cc fluid restrict
-Monitor UOP
-Daily weights
-Cards consult
B/l LE swelling
-Stop IV Vanc per ID recs- agree with this
-Compression stokcing
-Wound care
-Diuresis
Gout
-Continue allopurinol
-Monitor for flare
[place] vs Progressive CKD
-Cr back to baseline.
-Likely was related to renal vein congestion
-Now if develops [place] then likely related to over diuresis
HTN
-Continue antihypertensives
BPH
-Continue flomax
HLD
-Continue Statin tx
Begin discharge planning [facility] to [facility]
Physical therapy recommending discharge back to previous setting
Cardiology has increased daily Lasix to 80 mg twice a day every day
Have stressed to him compliance with compression stockings and following diet
Was evaluated by infectious diseases did not believe his legs were cellulitic and believed that his wounds and weeping with the drainage was more volume overload which I agree with.
Anticipated Discharge: Today
Subjective/Interval History
-
Date of Service: October 31, 2023
Seen and examined. No new complaints. No acute overnight events.
Resting comfortably in bed eating breakfast. Making his coffee.
Objective Data
-
Labs:
Laboratory Results
10/31/23
07:54
WBC Pending
Hgb Pending
Hct Pending
Plt Count Pending
Sodium 137
Potassium 3.5
Chloride 99
Carbon Dioxide 28
BUN 44 H
Creatinine 1.4 H
Glucose 114 H
Calcium 9.2
Vital Signs:
Vital Signs
Temp Pulse Resp BP Pulse Ox
97.8 F 60 16 130/60 95
10/31/23 07:51 10/31/23 07:51 10/31/23 07:51 10/31/23 07:51 10/31/23 07:51
I&O
10/30/23 10/31/23 11/01/23
06:59 06:59 06:59
Intake Total 680 / 680 1140 / 1140
Output Total 1100 / 1100 1575 / 1575
Balance -420 / -420 -435 / -435
[2023-10-31] MEDS: PROTONIX 40 MG PO (09:12)
[2023-10-31] MEDS: TOPROL XL 100 MG PO (09:12)
[2023-10-31] MEDS: FLOMAX 0.4 MG PO (09:12)
[2023-10-31] MEDS: LASIX 80 MG PO (09:12)
[2023-10-31] MEDS: APRESOLINE 25 MG PO (09:13)
[2023-10-31] MEDS: ZOLOFT 50 MG PO (09:13)
[2023-10-31] MEDS: SYMMETREL 100 MG PO (09:13)
[2023-10-31] MEDS: ASPIR LOW (ENTERIC COATED) 81 MG PO (09:13)
[2023-10-31] MEDS: ZYLOPRIM 300 MG PO (09:13)
[2023-10-31] MEDS: HEPARIN 5000 UNITS SC (09:14)
[2023-10-31] MEDS: ARISTOCORT/TRIAMCINOLONE 0.1% CREAM 1 APPLIC TOPICAL (09:14)
[2023-10-31 09:28] LABS: Hematocrit 33.5 % (39.0-52.0); Mean Corp Hgb Conc. 32.8 g/dL (33.0-37.0); Mean Corpuscular Hgb 32.1 pg (27.0-31.0); Mean Corpuscular Volume 97.7 fL (80.0-94.0); Mean Platelet Volume 11.8 fL (7.4-10.4); Platelet Count 181 10^3/uL (130-400); Red Blood Cell Count 3.43 10^6/uL (4.70-6.10); Red Cell Dist. Width 15.6 % (11.5-14.5); White Blood Cell Count 9.2 10^3/uL (4.8-10.8)
--- NOTE | 2023-10-31 09:28 | CM ---
Reviewed the chart notes and left voice message for the patient's daughter regarding discharge plans for today. CM spoke with Chayo at , report provided. They can accept back today. CM continues to be available to patient/family and
is monitoring medical plan for needs at discharge.
Plan: Discharge back to [facility] today.
Fax report to: [phone]
--- NOTE | 2023-10-31 09:49 | CM ---
Reviewed the chart notes and spoke with the patient at the bedside. IMM review and left with patient. Patient's daughter will provide transportation back to [facility] this afternoon around 4:00pm. RN updated.
[2023-10-31 11:39] LABS: Glucose - Point of Care 135 mg/dl (70-99)
[2023-10-31 11:52] VITALS: BP 103/41
[2023-10-31 11:56] VITALS: BP 90/40
--- NOTE | 2023-10-31 12:32 | PTCARENOTE ---
1158 pts manual bp 90/[address] Whitlock. Hold evening lasix if still less than <100
[2023-10-31 15:55] VITALS: BP 115/58
== END 2023-10-31 16:45 | disposition home or self-care (01) | DRG 602 ==
LOC: 2 NORTH 15:45
PROVIDERS: Physician Assistant; Registered Nurse; ADMITTING PHYSICIAN Hospitalist; CONSULT PHYSICIAN Internal Medicine; EMERGENCY PHYSICIAN Emergency Medicine; FAMILY PHYSICIAN Family Medicine; OTHER PHYSICIAN Internal Medicine Infectious Disease
DX: L03.115 Cellulitis of right lower limb (principal); I50.33 Acute on chronic diastolic (congestive) heart failure; D68.69 Other thrombophilia; I13.0 Hypertensive heart and chronic kidney disease with heart failure and stage 1 through stage 4 chronic kidney disease, or unspecified chronic kidney disease; I48.21 Permanent atrial fibrillation; N17.9 Acute kidney failure, unspecified; L03.116 Cellulitis of left lower limb; I25.10 Atherosclerotic heart disease of native coronary artery without angina pectoris; E11.42 Type 2 diabetes mellitus with diabetic polyneuropathy; E78.2 Mixed hyperlipidemia; N18.31 Chronic kidney disease, stage 3a; I25.5 Ischemic cardiomyopathy; G20.A1 Parkinson's disease without dyskinesia, without mention of fluctuations; D63.8 Anemia in other chronic diseases classified elsewhere; K21.9 Gastro-esophageal reflux disease without esophagitis; E11.22 Type 2 diabetes mellitus with diabetic chronic kidney disease; I70.0 Atherosclerosis of aorta; N40.0 Benign prostatic hyperplasia without lower urinary tract symptoms; M10.9 Gout, unspecified; F32.9 Major depressive disorder, single episode, unspecified; F10.21 Alcohol dependence, in remission; Z86.711 Personal history of pulmonary embolism; Z86.718 Personal history of other venous thrombosis and embolism; Z87.891 Personal history of nicotine dependence; I25.2 Old myocardial infarction; Z95.810 Presence of automatic (implantable) cardiac defibrillator; Z88.8 Allergy status to other drugs, medicaments and biological substances; Z79.82 Long term (current) use of aspirin; Z87.19 Personal history of other diseases of the digestive system; Z90.79 Acquired absence of other genital organ(s); Z91.199 Patient's noncompliance with other medical treatment and regimen due to unspecified reason; Z91.119 Patient's noncompliance with dietary regimen due to unspecified reason
CPT/HCPCS: 80048; 82962; 83880; 84132; 85025; 85027; 87070; 93306; 96365; 96366; 97162; 97166; 99285

== ENCOUNTER → 2024-01-13 10:52 | Outpatient (REF) | payer OTHER, SELFPAY | LOC: RAD 10:52 | PROVIDERS: ATTENDING PHYSICIAN Surgery Vascular Surgery; FAMILY PHYSICIAN Family Medicine | DX: I65.21 Occlusion and stenosis of right carotid artery (principal) | CPT/HCPCS: 93880 ==

== ENCOUNTER 2024-01-27 08:29 | Outpatient (RCR) | payer OTHER, SELFPAY ==
[2024-01-27 08:40] VITALS: BP 103/45
[2024-01-27] MEDS: SODIUM BICARBONATE 1150 MEQ IV (08:48)
== END 2024-01-28 09:32 | disposition home or self-care (01) ==
LOC: OID 08:29
PROVIDERS: ATTENDING PHYSICIAN Registered Nurse; FAMILY PHYSICIAN Family Medicine
DX: I65.21 Occlusion and stenosis of right carotid artery (principal); I71.40 Abdominal aortic aneurysm, without rupture, unspecified; I71.9 Aortic aneurysm of unspecified site, without rupture
CPT/HCPCS: 74174; 96365; 96366; Q9967

== ENCOUNTER 2024-03-04 19:46 | Emergency (ER) | payer OTHER, SELFPAY ==
[2024-03-04 19:46] VITALS: BMI 30.8
[2024-03-04 19:54] VITALS: BP 101/47
[2024-03-04 20:16] LABS: % Basophils 0.5 % (0-2); % Eosinophils 1.7 % (0-6); % Immature Granulocytes 0.6 % (0-0.5); % Lymphocytes 13.4 % (20.5-51.1); % Neutrophils 74.8 % (42.2-75.2); Absolute Eosinophils 0.2 10^3/uL (0-0.7); Absolute Immature Granulocytes 0.1 10^3/uL (0-0.05); Absolute Lymphocytes 1.2 10^3/uL (1.2-3.4); Absolute Monocytes 0.8 10^3/uL (0.1-0.6); Absolute Neutrophils 6.5 10^3/uL (1.4-6.5); Hemoglobin 10.6 g/dL (13.0-18.0); Mean Corp Hgb Conc. 32.1 g/dL (33.0-37.0); Mean Corpuscular Hgb 31.1 pg (27.0-31.0); Mean Corpuscular Volume 96.8 fL (80.0-94.0); Mean Platelet Volume 12.1 fL (7.4-10.4); Nucleated Red Blood Cells % 0 % (-); Platelet Count 164 10^3/uL (130-400); Red Blood Cell Count 3.41 10^6/uL (4.70-6.10); Red Cell Dist. Width 16.8 % (11.5-14.5); White Blood Cell Count 8.7 10^3/uL (4.8-10.8)
[2024-03-04 20:28] LABS: Blood Urea Nitrogen 51 mg/dl (9-20); Carbon Dioxide 31 mmol/L (22-30); Chloride 97 mmol/L (98-107); Glucose 120 mg/dl (70-99); Potassium 4.4 mmol/L (3.5-5.1); Sodium 139 mmol/L (135-145); eGFR 37.12
[2024-03-04 20:37] LABS: NT-proBNP 8270 pg/ml
[2024-03-04 23:56] VITALS: BP 110/59
[2024-03-05] VITALS: BP 124/60
--- NOTE | 2024-03-05 00:38 | ED.GENMED ---
History of Present Illness
General
Chief Complaint: Skin Problem
Time Seen by Provider: 03/05/24 00:31
History of Present Illness
History of Present Illness:
TIME OF INITIAL ENCOUNTER: 12:40 AM
HPI: Patient presents with weight gain of about 9 pounds or so and lower extremity edema. However he reports no shortness of breath. His primary doctor sent him in here for further evaluation. He states that he takes Lasix 80 mg twice daily. He
has no chest pain.
EXAM:
GENERAL: Well appearing in no distress
HEENT: Moist oral mucosa
CARDIOVASCULAR: No murmurs, normal heart rate, regular rhythm, No chest wall tenderness
PULMONARY: No respiratory distress, breath sounds are clear and equal
ABDOMEN: Soft with no peritoneal signs, no tenderness
NEUROLOGIC: Excellent strength all extremities, no coordination deficits
PSYCHIATRIC: Appropriate mental status, normal insight and judgement
EXTREMITIES: Nontender, 3+ bilateral lower extremity edema, moves all extremities equally
SKIN: Chronic skin changes noted to the lower extremities along with venous stasis and there is some open wounds to the anterior aspect of the right you
NUMBER AND COMPLEXITY OF PROBLEMS ADDRESSED AT THE ENCOUNTER
� Chronic conditions affecting care: Parkinson's, A-fib, CHF, CAD, DVT, defibrillator, diabetes
� Acute Exacerbation and/or Progression of Chronic Illness:
� Differential Diagnosis includes:
AMOUNT AND/OR COMPLEXITY OF DATA TO BE REVIEWED AND ANALYZED
� I performed an independent evaluation of and my interpretation is:
EKG:
CT:
X-rays:
Laboratory Studies: Hemoglobin 10.6, creatinine is 1.8 up from 1.4, BNP 8270
Other:
� Review of other/old records: I reviewed records, last hemoglobin in October was 11.0, prior creatinine was 1.4 in October
� Clinical information was obtained by an independent historian: I spoke to the son at bedside
� Prescriptions/Medications Considered but not given: Offered and considered IV diuresis given the reported weight gain however in discussion with patient and son we agreed to hold off on additional diuretic as his renal function
has been worsening. He has no shortness of breath and his lungs sound clear.
� Further testing considered but not performed:
RISK OF COMPLICATIONS AND/OR MORBIDITY OR MORTALITY OF PATIENT MANAGEMENT
� Social determinants of health affecting care: Lives at home
� Discussion with other providers:
� Escalation of care including admission/observation vs risk of discharge considered: His weight here is approximate 202 pounds which is comparable to where he has been (son indicated that he had been around 201 pounds). BNP is
slightly lower than prior. He reports no shortness of breath. Weight here in the Emergency Department is comparable to where he has been in the past recently.
ANY OTHER UPDATES:
Past History
Past History
ED Past Medical History: CAD, HTN, Hypercholesterolemia and Other (Ischemic cardiomyopathy EF of 40%, her excisional atrial fib status post pacer defibrillator, inducible VT, hypertension)
ED Past Surgical History: Cardiac
Social History
Tobacco: Non-smoker
Alcohol: Occasional
Drug: None
Personal: Single
Living: with family
Employment: Retired
Family History
Family History: Other (Mother with gout and presumed diabetes)
Phy Exam
Physical Exam
Physical Exam:
See HPI
Course
Orders/Labs/Results
Orders:
Orders
03/04/24 20:10
BNP [NT-proBNP] Urgent
Basic Metabolic Panel Urgent
Complete Blood Count/With Diff Urgent
Abnormal Lab Results
03/04/24
20:10
RBC 3.41 L 10^6/uL
(4.70-6.10)
Hgb 10.6 L g/dL
(13.0-18.0)
Hct 33.0 L %
(39.0-52.0)
MCV 96.8 H fL
(80.0-94.0)
MCH 31.1 H pg
(27.0-31.0)
MCHC 32.1 L g/dL
(33.0-37.0)
RDW 16.8 H %
(11.5-14.5)
MPV 12.1 H fL
(7.4-10.4)
Abs Immat Gran (auto) 0.1 H 10^3/uL
(0-0.05)
Absolute Monos (auto) 0.8 H 10^3/uL
(0.1-0.6)
Immature Gran % 0.6 H %
(0-0.5)
Lymphocytes % 13.4 L %
(20.5-51.1)
Chloride 97 L mmol/L
(98-107)
Carbon Dioxide 31 H mmol/L
(22-30)
BUN 51 H mg/dl
(9-20)
Creatinine 1.8 H mg/dL
(0.7-1.3)
Glucose 120 H mg/dl
(70-99)
03/04/24 20:10
03/04/24 20:10
Vital Signs
Initial and Last Documented VS:
Initial Vital Signs
Temp Pulse Resp BP Pulse Ox
36.3 C 58 16 101/47 97
03/04/24 19:54 03/04/24 19:54 03/04/24 19:54 03/04/24 19:54 03/04/24 19:54
Last Documented Vital Signs
Temp Pulse Resp BP Pulse Ox
36.4 C 60 21 124/60 99
03/05/24 00:21 03/05/24 00:15 03/05/24 00:15 03/05/24 00:00 03/05/24 00:15
*Critical Care Note
Total Time (30-74mins, 75-104mins- exclusive of procedures): Not Applicable
ED Attending Note
-
Portions of this chart may have been created with voice recognition software.� Occasional wrong word or��sound alike� substitutions may have occurred due to the inherent limitations of voice recognition software.
Discharge Plan
Departure
Prescriptions:
No Action
metoprolol succinate 100 MG tablet extended release 24 hr
100 mg PO DAILY
hydralazine 25 MG tablet
25 mg PO BID
aspirin 81 MG tablet,delayed release (DR/EC)
81 mg PO DAILY
sertraline 50 MG tablet
50 mg PO DAILY
pantoprazole 40 MG tablet,delayed release (DR/EC)
40 mg PO BID
simvastatin 40 MG tablet
40 mg PO QPM
allopurinol 300 MG tablet
300 mg PO DAILY
Digetive Advantage Probiotic
1 cap PO DAILY
acetaminophen 325 MG tablet
650 mg PO Q6HPRN PRN (Reason: mild pain/fever>101)
potassium citrate 10 mEq (1,080 mg) Tablet Extended Release
10 meq PO BID
tamsulosin 0.4 MG capsule
0.4 mg PO DAILY
amantadine HCl 100 mg Tablet
100 mg PO DAILY
polyethylene glycol 3350 17 gram Powder In Packet
17 g PO DAILYPRN PRN (Reason: constipation)
triamcinolone acetonide 0.1 % Cream
1 applic TOPICAL TID
furosemide 80 mg Tablet
80 mg PO BID 30 Days Qty: 60 0RF
Interventions
Interventions:
*Risk Screen - Suicide Last Done: 03/04/24 19:54
*General Assessment Last Done: 03/04/24 19:54
*Neglect/Abuse Screening Last Done: 03/04/24 19:54
Discharge Date and Time
Print Language: PORTUGUESE
[2024-03-05 01:00] VITALS: BP 118/62
[2024-03-05 01:45] VITALS: BP 109/52
== END 2024-03-05 02:06 | disposition home or self-care (01) ==
LOC: EMR 19:46
PROVIDERS: Registered Nurse; EMERGENCY PHYSICIAN Emergency Medicine; FAMILY PHYSICIAN Family Medicine
DX: R60.0 Localized edema (principal); I25.10 Atherosclerotic heart disease of native coronary artery without angina pectoris; I10 Essential (primary) hypertension; E78.00 Pure hypercholesterolemia, unspecified; I25.5 Ischemic cardiomyopathy; Z79.899 Other long term (current) drug therapy; I48.91 Unspecified atrial fibrillation
CPT/HCPCS: 99283; 80048; 83880; 85025

== ENCOUNTER 2024-06-09 12:43 | Inpatient (IN) | payer OTHER, SELFPAY ==
[2024-06-09 07:23] VITALS: BMI 31.3
[2024-06-09 07:29] VITALS: BP 105/57
[2024-06-09 07:30] VITALS: BP 105/57
--- NOTE | 2024-06-09 07:31 | ED.GENMED ---
History of Present Illness
General
Chief Complaint: Musculo-Skeletal Complaint
Source: patient
Exam Limitations: none
Time Seen by Provider: 06/09/24 07:27
History of Present Illness
History of Present Illness:
See MDM
Past History
Past History
ED Past Medical History: CAD, HTN, Hypercholesterolemia and Other (Ischemic cardiomyopathy EF of 40%, her excisional atrial fib status post pacer defibrillator, inducible VT, hypertension)
ED Past Surgical History: Cardiac
Social History
Tobacco: Non-smoker
Alcohol: Occasional
Drug: None
Personal: Single
Living: with family
Employment: Retired
Family History
Family History: Other (Mother with gout and presumed diabetes)
Phy Exam
Physical Exam
Physical Exam:
See MDM
Course
Orders/Labs/Results
Orders:
Orders
06/09/24 07:30
CT Head W/o Iv Contrast Urgent
Comment:
Reason For Exam: Fall, head injury
Hip, Right 2-3 Views [CR Hip - RT w/wo Pel 2-3 Vw*] Urgent
Comment:
Reason For Exam: Fall, R hip pain
Include a pelvis x-ray?: Yes
06/09/24 07:32
Complete Blood Count/With Diff Urgent
Comprehensive Metabolic Panel Urgent
Abnormal Lab Results
06/09/24
07:32
RBC 3.33 L 10^6/uL
(4.70-6.10)
Hgb 10.9 L g/dL
(13.0-18.0)
Hct 33.4 L %
(39.0-52.0)
MCV 100.3 H fL
(80.0-94.0)
MCH 32.7 H pg
(27.0-31.0)
MCHC 32.6 L g/dL
(33.0-37.0)
RDW 17.8 H %
(11.5-14.5)
MPV 11.5 H fL
(7.4-10.4)
Abs Immat Gran (auto) 0.1 H 10^3/uL
(0-0.05)
Absolute Lymphs (auto) 0.6 L 10^3/uL
(1.2-3.4)
Immature Gran % 0.9 H %
(0-0.5)
Neutrophils % 80.5 H %
(42.2-75.2)
Lymphocytes % 8.3 L %
(20.5-51.1)
BUN 60 H mg/dl
(9-20)
Creatinine 2.4 H mg/dL
(0.7-1.3)
Glucose 147 H mg/dl
(70-99)
Total Bilirubin 1.6 H mg/dl
(0.2-1.3)
Alkaline Phosphatase 201 H U/L
(38-126)
06/09/24 07:32
06/09/24 07:32
Vital Signs
Initial and Last Documented VS:
Initial Vital Signs
Temp Pulse Resp BP Pulse Ox
97.9 F 60 18 105/57 93
06/09/24 07:30 06/09/24 07:30 06/09/24 07:30 06/09/24 07:30 06/09/24 07:30
Last Documented Vital Signs
Temp Pulse Resp BP Pulse Ox
97.9 F 60 18 105/57 93
06/09/24 07:30 06/09/24 07:30 06/09/24 07:30 06/09/24 07:30 06/09/24 07:30
MDM/Problems Addressed
Differential Diagnosis Includes:
HPI and MDM Narrative:
83-year-old male presenting for evaluation of a fall. Patient states he was using his walker and it slipped. He states he fell on his right hip. He did hit the right side of his head as well. On exam, he is well-appearing nontoxic. Declined any
pain medicine. Given mechanical fall with headache and right hip pain, will obtain CT head and right hip x-ray. Will obtain basic blood work
Physical exam
General: Well appearing and non-toxic
HEENT: protecting airway
Neck: Nontender, supple
CV: No evidence of cyanosis
Resp: No accessory muscle use
Abd: Non-distended
Extremities: No deformities. Mild tenderness right hip. No pain with logrolling. Venous stasis and dependent edema to bilateral legs. Patient states this is chronic
Neuro: alert
Psych: Normal affect
Skin: Intact
Problems Addressed including Acute and Chronic Conditions affecting care:
1. Mechanical fall
Acuity: acute
Prognosis: stable
Details: Will obtain CT head and right hip x-ray
Updates
CT head negative. Right hip x-ray consistent with intertrochanteric fracture. Orthopedics made aware
Differential Diagnosis (but not limited to): Contusion, fracture, hyponatremia
Testing considered: CT neck but he has no tenderness
Drug therapy (if applicable): OTC meds, please see d/c instruction regarding Rx drugs
Amount and/or Complexity of Data Reviewed
Clinical info obtained from: Patient
External data reviewed: N/A
Labs I independently reviewed (but not limited to): Rising creatinine
Radiology: X-ray independently reviewed: Right intertrochanteric fracture
Pulse Ox: not hypoxic
EKG independently reviewed: N/A
Outside Installation Machinist: N/A
Critical Care: N/A
Risk of Complication:
Social Determinants of health: Good social support
Discussed with other providers: Hospitalist, orthopedist
Escalation of Care includes Admit/Obs: Given the hip fracture, will admit
Occasional wrong word or 'sound a like' substitutions may have occurred due to the inherent limitations of voice recognition software. Read the chart carefully and recognize, using context, where substitutions have occurred.
*Critical Care Note
Total Time (30-74mins, 75-104mins- exclusive of procedures): Not Applicable
ED Attending Note
-
Portions of this chart may have been created with voice recognition software.� Occasional wrong word or��sound alike� substitutions may have occurred due to the inherent limitations of voice recognition software.
Discharge Plan
Departure
Patient Disposition: Admit
Date of Disposition: 06/09/24
Time of Disposition: 10:11
Admit to: Med/Surg
Presentation/result/management discussed w/ accepting MD/DO: Hospitalist
Discharge Problem:
Closed fracture of right hip
Prescriptions:
No Action
metoprolol succinate 100 MG tablet extended release 24 hr
100 mg PO DAILY
hydralazine 25 MG tablet
25 mg PO BID
aspirin 81 MG tablet,delayed release (DR/EC)
81 mg PO DAILY
sertraline 50 MG tablet
50 mg PO DAILY
pantoprazole 40 MG tablet,delayed release (DR/EC)
40 mg PO BID
simvastatin 40 MG tablet
40 mg PO QPM
allopurinol 300 MG tablet
300 mg PO DAILY
Digetive Advantage Probiotic
1 cap PO DAILY
acetaminophen 325 MG tablet
650 mg PO Q6HPRN PRN (Reason: mild pain/fever>101)
potassium citrate 10 mEq (1,080 mg) Tablet Extended Release
10 meq PO BID
tamsulosin 0.4 MG capsule
0.4 mg PO DAILY
amantadine HCl 100 mg Tablet
100 mg PO DAILY
polyethylene glycol 3350 17 gram Powder In Packet
17 g PO DAILYPRN PRN (Reason: constipation)
triamcinolone acetonide 0.1 % Cream
1 applic TOPICAL TID
furosemide 80 mg Tablet
80 mg PO BID 30 Days Qty: 60 0RF
Referrals:
Andrés Eason MD [Family Provider] -
Interventions
Interventions:
*Risk Screen - Suicide Last Done: 06/09/24 07:24
*General Assessment Last Done: 06/09/24 07:24
*Neglect/Abuse Screening Last Done: 06/09/24 07:24
*ED COVID-19 Vaccine History Last Done: 06/09/24 07:24
ED-Musculoskeletal Assessment Last Done: 06/09/24 07:24
Discharge Date and Time
Print Language: ECUADOREAN
[2024-06-09 07:47] LABS: % Basophils 0.7 % (0-2); % Eosinophils 1.5 % (0-6); % Immature Granulocytes 0.9 % (0-0.5); % Lymphocytes 8.3 % (20.5-51.1); % Monocytes 8.1 % (1.7-9.3); % Neutrophils 80.5 % (42.2-75.2); Absolute Basophils 0.1 10^3/uL (0-0.2); Absolute Eosinophils 0.1 10^3/uL (0-0.7); Absolute Immature Granulocytes 0.1 10^3/uL (0-0.05); Absolute Lymphocytes 0.6 10^3/uL (1.2-3.4); Absolute Monocytes 0.6 10^3/uL (0.1-0.6); Absolute Neutrophils 5.9 10^3/uL (1.4-6.5); Hematocrit 33.4 % (39.0-52.0); Hemoglobin 10.9 g/dL (13.0-18.0); Mean Corp Hgb Conc. 32.6 g/dL (33.0-37.0); Mean Corpuscular Hgb 32.7 pg (27.0-31.0); Mean Corpuscular Volume 100.3 fL (80.0-94.0); Mean Platelet Volume 11.5 fL (7.4-10.4); Nucleated Red Blood Cells % 0.3 % (-); Platelet Count 131 10^3/uL (130-400); Red Blood Cell Count 3.33 10^6/uL (4.70-6.10); Red Cell Dist. Width 17.8 % (11.5-14.5); White Blood Cell Count 7.4 10^3/uL (4.8-10.8)
[2024-06-09 07:59] LABS: ALT (SGPT) 25 U/L (0-50); AST (SGOT) 42 U/L (17-59); Albumin 3.7 g/dl (3.5-5.0); Alkaline Phosphatase 201 U/L (38-126); Blood Urea Nitrogen 60 mg/dl (9-20); Calcium 9.4 mg/dl (8.4-10.2); Carbon Dioxide 28 mmol/L (22-30); Chloride 101 mmol/L (98-107); Estimated Creatinine Clearance 26 ml/min; Glucose 147 mg/dl (70-99); Potassium 4.2 mmol/L (3.5-5.1); Sodium 141 mmol/L (135-145); Total Bilirubin 1.6 mg/dl (0.2-1.3); Total Protein 7.1 g/dl (6.3-8.2); eGFR 26.28
[2024-06-09 08:00] VITALS: BP 96/61
--- NOTE | 2024-06-09 13:06 | CON.ORTHO ---
Consultation
-
Date/Time Consultation Requested: 06/09/2024 @ Unknown Time
Date/Time Consultation Performed: 06/09/2024 @ 12:30 PM
Requesting Provider: Dr. Olvin Vicente DO
Performing Provider: Shankar Nugent PA-C for Dr. Kirk Vega
Reason for Consultation: Right Hip Fracture
Consultation - Orthopedics
History
Orthopedic Surgery Note
CC: Right Hip Pain s/p Mechanical Fall
HPI: The patient is an 83-year-old male with a past medical history significant for CAD, HTN, Hypercholesterolemia, [place] fibrillation, Parkinson's, Heart failure with preserved EF, PPM/ICD placement and CKD who presents to [facility]
Emergency Department with right hip pain after sustaining a mechanical fall earlier this morning. The patient's daughter, Jojo COX), is at bedside. He resides at the [facility]. It is reported that he was using his walker when
he unfortunately slipped and sustained a mechanical fall onto his right hip. He was transported to ED via EMS, where radiographs of the right hip revealed an acute intertrochanteric right hip fracture. He reports increased pain with any
movement. He is on Aspirin 81 mg and denies any further anticoagulation use due to history of a GI bleed in 2019. Per patient's daughter, he is pretty independent. Orthopedics has been consulted for further management.
PMH/PSH: CAD, HTN, Hypercholesterolemia, Pin[place] fibrillation, Parkinson's, Heart failure with preserved EF, PPM/ICD placement and CKD.
Medications: Reviewed.
Family History: Family history was reviewed. Noncontributory.
Social history: Nonsmoker, no illicit drugs
Exam
General appearance: No acute distress. Appears to be very drowsy resting in bed comfortably.
Head: Normocephalic/atraumatic
Nose: No lesions or discharge.
Skin: Chronic venous insufficiency to bilateral lower extremities; skin weeping.
Lungs: No audible wheezing, no cough or sputum production
Musculoskeletal:
RLE:
Physical examination of the right hip reveals leg shortened and externally rotated. (+) TTP about the right hip. No tenderness to palpation about right knee. Thigh is soft and compressible. ROM hip deferred. Able to plantarflex and dorsiflex the
right ankle. Calf is soft and nontender. Bilateral chronic venous insufficiency; skin weeping. NVI distally.
Xrays: CR Hip - RIGHT w/wo Pel 2-3 Vw*was obtained at [facility] on 05/30/2024 was made available for my review today. Findings: There is acute mildly comminuted intertrochanteric fracture of the proximal right femur with varus angulation.
Fracture fragment including lesser trochanter slightly displaced medially. Crosstable lateral projection shows minimal posterior displacement of the major distal component. Femoral head maintains articulation with the acetabulum. No other acute
fracture identified. No suspicious focal osseous lesions. Left hip joint is maintained. Pubic symphysis is congruent. Sacroiliac joints are grossly maintained. No radiopaque foreign body. There is some soft tissue swelling associated with the
fracture. Impression: Acute intertrochanteric fracture right femur.
Assessment: 83-year-old male with an acute RIGHT intertrochanteric proximal femur fracture.
Plan: Unfortunately, the patient has sustained a right hip fracture secondary to his mechanical fall earlier this morning. We discussed the treatment options. Recommended surgical fixation. The risks, benefits, potential complications, and
expected post-operative course were reviewed. Patient's daughter, Jojo COX), agrees to proceed with surgical intervention. Surgical and blood consents were obtained and scanned into his chart. A copy was also left at the OR front desk person. Will
plan for the OR tomorrow around lunchtime for a RIGHT hip gamma nail under the direction of Dr. Vega pending medical/cardiology clearances. Patient to remain NPO pMN 06/09/2024. He is to remain nonweightbearing to his right lower extremity until
post-op. Ancef and irrigation OCTOR. Type and screen requested. Case posted with our front desk person. Continue with pain management as needed per primary team. Hemoglobin 10.9. All questions were answered. Orthopedic surgery will continue to
follow along.
Allergies / Home Medications
Allergy/AdvReac Type Severity Reaction Status Date / Time
rivaroxaban [From Xarelto] Allergy GI Bleed Verified 01/27/24 09:07
�Medication �Instructions �Recorded
aspirin 81 mg tablet,delayed 81 mg PO DAILY Blood clot 05/14/18
release prevention/tx
hydralazine 25 mg tablet 25 mg PO BID Blood pressure 05/14/18
metoprolol succinate 100 mg 100 mg PO DAILY Arrhythmia 05/14/18
tablet,extended release 24 hr
sertraline 50 mg tablet 50 mg PO DAILY Mental Health 05/14/18
pantoprazole 40 mg tablet,delayed 40 mg PO BID Gastrointestinal issue 06/05/18
release
Bacillus coagulans 2 billion 1 cap PO DAILY Gastrointestinal 08/20/20
cell-calcium 140 mg capsule issue ##0
(Digestive Advantage Probiotic)
allopurinol 300 mg tablet 300 mg PO DAILY Gout 08/20/20
simvastatin 40 mg tablet 40 mg PO QPM High cholesterol 08/20/20
acetaminophen 325 mg tablet 650 mg PO Q6HPRN PRN mild 05/30/21
pain/fever>101
amantadine HCl 100 mg tablet 100 mg PO DAILY Neurological 07/18/22
Condition
polyethylene glycol 3350 17 gram 17 g PO DAILYPRN PRN constipation 07/18/22
oral powder packet
potassium citrate 10 mEq (1,080 10 meq PO BID Electrolyte Repletion 07/18/22
mg) tablet,extended release
tamsulosin 0.4 mg capsule 0.4 mg PO QPM Urinary Issue 07/18/22
triamcinolone acetonide 0.1 % 1 applic topical TID Skin Issues 10/29/23
topical cream
furosemide 80 mg tablet 80 mg PO BID Fluid 06/09/24
Retention/Swelling
Vital Signs / Lab Results
Temp Pulse Resp BP Pulse Ox
97.9 F 60 18 105/57 93
06/09/24 07:30 06/09/24 07:30 06/09/24 07:30 06/09/24 07:30 06/09/24 07:30
06/09/24 07:32
06/09/24 07:32
[2024-06-09 13:46] LABS: Creatine Phosphokinase 221 U/L (55-170)
--- NOTE | 2024-06-09 14:23 | HPS.HSE ---
Family Physician
-
Family Physician: Andrés Eason
Chief Complaint
-
fall with mechanical fall and right hip revealed an acute intertrochanteric right hip fracture
History of Present Illness
83-year-old male with a past medical history significant for CAD, HTN, Hypercholesterolemia, [place] fibrillation, Parkinson's, Heart failure with preserved EF, PPM/ICD placement and CKD presents after sustaining mechanical fall earlier this morning.
Patient without any new seasons at [place]. Patient was using his walker, unfortunately slipped and sustained fall to his right hip. No loss of consciousness, remembers the event. No head strike. On aspirin 81 mg at home, and no
anticoagulation use due to history of GI bleed in 2019. Baseline ambulation is independent. Imaging revealing acute intertrochanteric right hip fracture. Vitals reveal patient is afebrile, blood pressure 105/57 respiratory rate of 18, pulse 60,
saturating 93% on room air. Labs remarkable for creatinine of 2.4 (1.8 in February 2024) bilirubin elevated 1.6, Phos 201. CK is 221. No evidence of resp distress. Ultrasound with mildly heterogeneous hepatic echotexture most likely related to
cirrhosis, no acute findings. No urinary symptoms.
Medical History
Past Medical History
Past Medical History: Reports Other
Additional Past Medical History:
1. Mixed lipidemia.
2. Ischemic cardiomyopathy.
3. DVT on right lower extremity 2012.
4. Gout.
5. History of pulmonary embolism 2012.
6. Parkinson's disease.
7. Hypercoagulable state, secondary.
8. 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
9. Abdominal aortic atherosclerosis.
10.History of myocardial infarction.
11.Hypertensive chronic kidney disease, stage 1 through stage IV.
12.Coronary artery disease - he has an automatic cardioverter-
defibrillator present.
13.Essential hypertension.
14.History of alcoholism, but in recovery.
15.History of major depressive disorder.
16.Atrial fibrillation.
17.Ex-smoker.
Past Surgical History: Reports Other
Additional Past Surgical History:
1. ICD.
2. Tonsillectomy.
3. Carotid surgery 2018.
4. ICD generator change in 2014.
Social History
Tobacco: Non-smoker
Alcohol: Occasional
Drug: None
Family History
Family History: Not pertinent
Allergies / Home Medications
Allergies reflects when Allergies were last updated in [facility].
Home Medications with original date entered in [facility]
Allergy/Medication List:
Allergies
Allergy/AdvReac Type Severity Reaction Status Date / Time
rivaroxaban [From Xarelto] Allergy GI Bleed Verified 01/27/24 09:07
Home Medications
aspirin 81 mg tablet,delayed release 81 mg PO DAILY Blood clot prevention/tx 05/14/18
hydralazine 25 mg tablet 25 mg PO BID Blood pressure 05/14/18
metoprolol succinate 100 mg tablet,extended release 24 hr 100 mg PO DAILY Arrhythmia 05/14/18
sertraline 50 mg tablet 50 mg PO DAILY Mental Health 05/14/18
pantoprazole 40 mg tablet,delayed release 40 mg PO BID Gastrointestinal issue 06/05/18
Bacillus coagulans 2 billion cell-calcium 140 mg capsule (Digestive Advantage Probiotic) 1 cap PO DAILY Gastrointestinal issue ##0 08/20/20
allopurinol 300 mg tablet 300 mg PO DAILY Gout 08/20/20
simvastatin 40 mg tablet 40 mg PO QPM High cholesterol 08/20/20
acetaminophen 325 mg tablet 650 mg PO Q6HPRN PRN mild pain/fever>101 05/30/21
amantadine HCl 100 mg tablet 100 mg PO DAILY Neurological Condition 07/18/22
polyethylene glycol 3350 17 gram oral powder packet 17 g PO DAILYPRN PRN constipation 07/18/22
potassium citrate 10 mEq (1,080 mg) tablet,extended release 10 meq PO BID Electrolyte Repletion 07/18/22
tamsulosin 0.4 mg capsule 0.4 mg PO QPM Urinary Issue 07/18/22
triamcinolone acetonide 0.1 % topical cream 1 applic topical TID Skin Issues 10/29/23
furosemide 80 mg tablet 80 mg PO BID Fluid Retention/Swelling 06/09/24
Review of Systems
-
History Source: Patient
A 12 point ROS was completed and negative except as noted: Yes
Physical Exam
Vital Signs
Vital Signs
Temp Pulse Resp BP Pulse Ox
97.9 F 60 18 105/57 93
06/09/24 07:30 06/09/24 07:30 06/09/24 07:30 06/09/24 07:30 06/09/24 07:30
Physical Exam
General: Well Developed and Well Nourished
HEENT: NormoCephalic
Respiratory: Clear
Cardiac: S1/S2 and Regular Rhythm
GI: Soft and Non Tender
Musculoskeletal: No Clubbing and Other (right hip reveals leg shortened and externally rotated. (+) TTP about the right hip. No tenderness to palpation about right knee. Thigh is soft and compressible. )
Skin: Warm and Dry
Hematologic/Lymphatic: No Lymphadenopathy
Psych: Calm
Laboratory Results
-
06/09/24 07:32
06/09/24 07:32
Laboratory Results
Total Bilirubin 1.6 mg/dl (0.2-1.3) H 06/09/24 07:32
AST 42 U/L (17-59) 06/09/24 07:32
ALT 25 U/L (0-50) 06/09/24 07:32
Alkaline Phosphatase 201 U/L (38-126) H 06/09/24 07:32
Data Reviewed
-
Lab Data: Labs Reviewed by me
Impression/Plan
-
IMPRESSION:
83-year-old male with a past medical history significant for CAD, HTN, Hypercholesterolemia, [place] fibrillation, Parkinson's, Heart failure with preserved EF, PPM/ICD placement and CKD presents after sustaining mechanical fall earlier this morning.
Found to have right hip fracture, [place].
PLAN:
#acute RIGHT intertrochanteric proximal femur fractur
�Orthopedics consulted
� Plan for right hip gamma nail tomorrow
� N.p.o. at midnight
� Monitor hemoglobin
� Can continue aspirin, HSQ for now�anticipate aspirin 325 mg daily after procedure for Ortho due to prophylaxis
# [place] on CKD
� CK 221
�Does not appear volume overloaded at this time
� Follow-up proBNP
� Will hold diuretics at this time, may provide gentle hydration depending on proBNP
� Monitor renal function
#Transaminitis
�No acute findings
� Possible cirrhosis
� Follow-up outpatient
#Chronic HFpEF
-hold diuretics
-await probnp
-Follow renal function
-2d echo repeat ordered
-Keep K>4, Mg>2
-HF diet, 48oz fluid restrict
-Monitor UOP
-Daily weights
Gout
-hold allopurinol for now
-Monitor for flare
HTN
-Continue antihypertensives
�Avoid nephrotoxic agents
BPH
-Continue flomax
HLD
-Continue Statin tx
#DVT prophylaxis
� HSQ
[2024-06-09 16:09] VITALS: BP 98/43
[2024-06-09] MEDS: FLOMAX 0.4 MG PO (16:50)
[2024-06-09] MEDS: LIPITOR 20 MG PO (16:50)
[2024-06-09] MEDS: TRIAMCINOLONE ACETONIDE 0.1% CREAM 1 APPLIC TOPICAL ×2 (16:50→21:32)
[2024-06-09] MEDS: HEPARIN 5000 UNITS SC (16:50)
--- NOTE | 2024-06-09 17:32 | TRANSFER ---
pt arrives from ED at 1535 requiring a pullover into hospital bed. VSS, pt did present on 2L, attempted to ween although pts sat decreased to 90-91 on RA, placed back on 2L NC with sat coming up to mid to high 90s. Static air overlay applied to
mattress, heel foams applied, heels elevated off of bed. dinner just arrived to bedside. pt not endorsing pain, states he is comfortable at the moment. pt to be NPO at midnight for OR tomorrow. call farley, fluids, personal belongings in reach.
plan of care continues to be followed.
[2024-06-09 19:00] VITALS: BP 94/44
[2024-06-09] MEDS: APRESOLINE PO (21:28)
[2024-06-09] MEDS: PROTONIX 40 MG PO (21:32)
[2024-06-09 23:00] VITALS: BP 97/48
[2024-06-10] MEDS: HEPARIN 5000 UNITS SC ×3 (00:14→15:18)
[2024-06-10 03:00] VITALS: BP 99/46
[2024-06-10 05:30] VITALS: BMI 30.8
--- NOTE | 2024-06-10 07:27 | W.PN.UPDATE ---
Update Note
Progress Note Update
83M planned for right hip CMN with Dr. Vega today pending medical clearance
-consent on file
-ABX OCTOR
-NPO
[2024-06-10 07:28] LABS: Hematocrit 28.3 % (39.0-52.0); Hemoglobin 9.4 g/dL (13.0-18.0); Mean Corp Hgb Conc. 33.2 g/dL (33.0-37.0); Mean Corpuscular Hgb 32.1 pg (27.0-31.0); Mean Corpuscular Volume 96.6 fL (80.0-94.0); Mean Platelet Volume 12.1 fL (7.4-10.4); Platelet Count 113 10^3/uL (130-400); Red Blood Cell Count 2.93 10^6/uL (4.70-6.10); Red Cell Dist. Width 17.3 % (11.5-14.5); White Blood Cell Count 9.8 10^3/uL (4.8-10.8)
[2024-06-10 07:41] VITALS: BP 110/48
[2024-06-10 07:50] LABS: ALT (SGPT) 34 U/L (0-50); AST (SGOT) 61 U/L (17-59); Albumin 3.5 g/dl (3.5-5.0); Alkaline Phosphatase 187 U/L (38-126); Blood Urea Nitrogen 71 mg/dl (9-20); Calcium 9.2 mg/dl (8.4-10.2); Carbon Dioxide 28 mmol/L (22-30); Chloride 102 mmol/L (98-107); Estimated Creatinine Clearance 20 ml/min; Glucose 115 mg/dl (70-99); Magnesium 2.3 mg/dl (1.6-2.3); Potassium 4.7 mmol/L (3.5-5.1); Sodium 140 mmol/L (135-145); Total Bilirubin 2.1 mg/dl (0.2-1.3); Total Protein 6.5 g/dl (6.3-8.2); eGFR 18.61
[2024-06-10] MEDS: TRIAMCINOLONE ACETONIDE 0.1% CREAM 1 APPLIC TOPICAL ×3 (08:44→20:34)
[2024-06-10] MEDS: SYMMETREL 100 MG PO (08:45)
[2024-06-10] MEDS: ZOLOFT 50 MG PO (08:45)
[2024-06-10] MEDS: ASPIR LOW (ENTERIC COATED) 81 MG PO (08:45)
[2024-06-10] MEDS: PROTONIX 40 MG PO ×2 (08:45→20:33)
[2024-06-10] MEDS: VISBIOME 1 CAP PO (08:45)
[2024-06-10] MEDS: TOPROL XL 100 MG PO (08:45)
[2024-06-10] MEDS: APRESOLINE PO ×2 (08:48→20:32)
--- NOTE | 2024-06-10 09:43 | W.PN.HOSP.TC ---
Today's Communication/Plan
-
NOT cleared for hip fracture repair today
restart diet
ancef renally dosed through today and 60ml/hr of 500ml NSS
re-evaluate in AM for improvement
Assessment / Plan
Assessment / Plan
pt is an 83 year old male
acute RIGHT intertrochanteric proximal femur fracture--apprec orthopedics--would hold on OR today due to concern for bilateral cellulitis and putting hardware in a fresh hip fracture repair--start ANCEF renally dosed through today--will also give 1
dose IV vanco (since creat 3.2)--spoke with daughter Jojo who reports legs are warmer and redder than usual (usually more purple), Dr. Vega, and pt primary MD, Dr. Rebecca Hoskins and reviewed pictures in tiger text--all in agreement--restart diet
� Plan for right hip gamma nail tomorrow
� N.p.o. at midnight
� Monitor hemoglobin
� Can continue aspirin, HSQ for now�anticipate aspirin 325 mg daily after procedure for Ortho due to prophylaxis
# [place] on CKD--creat today 3.2 up from 2.4--will give 500ml NSS at 60ml/hr x 1 bag only
� CK 221
�Does not appear volume overloaded at this time
� Follow-up proBNP
� Will hold diuretics at this time, may provide gentle hydration depending on proBNP
� Monitor renal function
#Transaminitis
�No acute findings
� Possible cirrhosis
� Follow-up outpatient
#Chronic HFpEF --no exacerbation
-hold diuretics
-await probnp--will add on
-Follow renal function
-2d echo repeat ordered
-Keep K>4, Mg>2
-HF diet, 48oz fluid restrict
-Monitor UOP
-Daily weights
Gout
-hold allopurinol for now
-Monitor for flare
HTN
-Continue antihypertensives
�Avoid nephrotoxic agents
BPH
-Continue flomax
HLD
-Continue Statin tx
#DVT prophylaxis
� HSQ
code status--FULL CODE
Anticipated Discharge: > 48 hours
Subjective/Interval History
-
Date of Service: June 10, 2024
pt without c/o--due for OR today
Objective Data
-
Labs:
Laboratory Results
06/10/24
07:16
WBC 9.8
Hgb 9.4 L
Hct 28.3 L
Plt Count 113 L
Sodium 140
Potassium 4.7
Chloride 102
Carbon Dioxide 28
BUN 71 H
Creatinine 3.2 H
Glucose 115 H
Calcium 9.2
Total Bilirubin 2.1 H
AST 61 H
ALT 34
Alkaline Phosphatase 187 H
Vital Signs:
max temp for 24 hours
06/10/24
03:00
Temp 98 F
Vital Signs
Temp Pulse Resp BP Pulse Ox
97.9 F 62 17 108/57 98
06/10/24 07:41 06/10/24 08:48 06/10/24 07:41 06/10/24 08:48 06/10/24 07:41
I&O
06/09/24 06/10/24 06/11/24
06:59 06:59 06:59
Intake Total 240 / 240
Output Total 200 / 200
Balance 240 / 240 -200 / -200
Review of Systems
-
All other systems: Reviewed and negative
Physical Exam
-
General: Well Developed, Well Nourished and Appears Chronically Ill
HEENT: Normocephalic, Atraumatic and Oxygen
Respiratory: Clear to Auscultation; Negative Wheezes or Rhonchi
Cardiac: Regular Rhythm and S1/S2; Negative Murmur
GI: Soft, Nontender, Nondistended and Normal Bowel Sounds
Musculoskeletal: No Clubbing, No Cyanosis, No Edema and Other (right leg shortened and externally rotated)
Skin: Other (chronic venous changes bilaterally with increased pinkness and warmth bilaterally from knees to ankles--dry chronic skin wounds noted--no oozing)
Neuro: Awake and Alert
Psych: Calm
[2024-06-10] MEDS: NSS 500 IV (10:19)
[2024-06-10] MEDS: DESENEX/MITRAZOL/ZEASORB 1 APPLIC TOPICAL ×2 (10:24→20:34)
[2024-06-10] MEDS: ANCEF 5 IV ×2 (10:35→21:56)
[2024-06-10] MEDS: VANCOCIN 530 MG IV (10:35)
--- NOTE | 2024-06-10 10:58 | CM ---
CM following re: discharge planning.
Reviewed pt's chart, met with pt and spoke to pt's daughter Barbara.
Pt is an 83 year old male,l admitted with primary dx of Fall and R hip fx. Per MD, pt is not cleared for hip fracture repair today.
Pt reports he lives at [facility], has 2 supportive children, ambulates independently with a walker. Pt reports he is known to [facility] and [facility].
PT and OT will evaluate the pt after hip repair surgery. Per daughter, she feels that pt will need a SNF level of care and she preferred [facility]. pt is aware, expressed his agreement. CM will make a referral to [facility] after PT/OT
evaluations.
PCP: Andrés Eason
Pharmacy: [facility].
D/C plan: [facility] when medically stable. No referral has been sent yet.
CM will follow with discharge plan updates as hospitalization progresses
[2024-06-10 11:23] VITALS: BMI 30.8
[2024-06-10 11:39] VITALS: BP 115/55
[2024-06-10 15:30] VITALS: BP 104/53
[2024-06-10] MEDS: FLOMAX 0.4 MG PO (17:29)
[2024-06-10] MEDS: LIPITOR 20 MG PO (17:29)
[2024-06-10 19:00] VITALS: BP 112/53
[2024-06-10 23:00] VITALS: BP 130/56
[2024-06-11] VITALS (12 sets, daily range): BP systolic 95–118; BP diastolic 38–94; BMI 31.5
[2024-06-11] MEDS: HEPARIN 5000 UNITS SC (00:17)
[2024-06-11 07:19] LABS: NT-proBNP 22400 pg/ml
[2024-06-11 07:20] LABS: ALT (SGPT) 24 U/L (0-50); AST (SGOT) 46 U/L (17-59); Albumin 3.1 g/dl (3.5-5.0); Alkaline Phosphatase 170 U/L (38-126); Blood Urea Nitrogen 77 mg/dl (9-20); Calcium 8.7 mg/dl (8.4-10.2); Carbon Dioxide 24 mmol/L (22-30); Chloride 104 mmol/L (98-107); Estimated Creatinine Clearance 19 ml/min; Glucose 125 mg/dl (70-99); Magnesium 2.3 mg/dl (1.6-2.3); Sodium 139 mmol/L (135-145); Total Bilirubin 1.3 mg/dl (0.2-1.3); eGFR 17.93
[2024-06-11 07:32] LABS: Hematocrit 27.1 % (39.0-52.0); Hemoglobin 9.3 g/dL (13.0-18.0); Mean Corp Hgb Conc. 34.3 g/dL (33.0-37.0); Mean Corpuscular Volume 96.1 fL (80.0-94.0); Mean Platelet Volume 13.3 fL (7.4-10.4); Platelet Count 99 10^3/uL (130-400); Red Blood Cell Count 2.82 10^6/uL (4.70-6.10); Red Cell Dist. Width 17.3 % (11.5-14.5); White Blood Cell Count 9.2 10^3/uL (4.8-10.8)
[2024-06-11] MEDS: ANCEF 5 IV ×2 (08:35→22:13)
--- NOTE | 2024-06-11 09:43 | W.PN.HOSP.TC ---
Today's Communication/Plan
-
for OR today
Assessment / Plan
Assessment / Plan
pt is an 83 year old male
acute RIGHT intertrochanteric proximal femur fracture--apprec orthopedics-- bilateral cellulitis somewhat improved but not resolved, given need to repair hip, will allow pt to go to OR today --cont ANCEF renally dosed -s/p 1 dose IV vanco--spoke
with daughter Jojo who reports legs are warmer and redder than usual (usually more purple)--pain control, PT/OT
[place] on CKD--creat today 3.2 up from 2.4--will s/p 500ml NSS at 60ml/hr x 1 bag only--no improvement with creat--consider renal consult--with pro BNP 97943, maybe needs diuresis....Does not appear volume overloaded
Transaminitis-�No acute findings� Possible cirrhosis� Follow-up outpatient
Chronic HFpEF --no exacerbation--hold diuretics--2d echo repeat ordered--Keep K>4, Mg>2--daily weights, I/Os--HF diet, 48oz fluid restrict--consider cards consult
paroxysmal afib--came post procedure--in SR currently--not on anticoagulation that I can appreciate
Gout--hold allopurinol for now
Essential HTN--Continue antihypertensives-�Avoid nephrotoxic agents
BPH--Continue flomax
HLD -Continue Statin tx
DVT prophylaxis� HSQ
code status--FULL CODE
Anticipated Discharge: > 48 hours
Subjective/Interval History
-
Date of Service: June 11, 2024
saw pt early this AM--no c/o--legs a bit better than yesterday
Objective Data
-
Labs:
Laboratory Results
06/11/24
06:31
WBC 9.2
Hgb 9.3 L
Hct 27.1 L
Plt Count 99 L
Sodium 139
Potassium 4.0
Chloride 104
Carbon Dioxide 24
BUN 77 H
Creatinine 3.3 H
Glucose 125 H
Calcium 8.7
Total Bilirubin 1.3
AST 46
ALT 24
Alkaline Phosphatase 170 H
Vital Signs:
max temp for 24 hours
06/10/24
23:00
Temp 98.0 F
Vital Signs
Temp Pulse Resp BP Pulse Ox
97.9 F 69 14 110/50 96
06/11/24 07:54 06/11/24 07:54 06/11/24 07:54 06/11/24 07:54 06/11/24 07:54
I&O
06/10/24 06/11/24 06/12/24
06:59 06:59 06:59
Intake Total 240 / 240 1435 / 1435
Output Total 200 / 200
Balance 240 / 240 1235 / 1235
Review of Systems
-
All other systems: Reviewed and negative
Physical Exam
-
General: Appears Chronically Ill
HEENT: Normocephalic and Atraumatic; Negative Oxygen
Respiratory: Clear to Auscultation; Negative Wheezes or Rhonchi
Cardiac: Regular Rhythm and S1/S2
GI: Soft, Nontender, Nondistended and Normal Bowel Sounds
Musculoskeletal: No Clubbing, No Cyanosis and No Edema
Skin: Other (improvement in bilateral LE redness but not resolved--still a bit warm)
Neuro: Awake
--- NOTE | 2024-06-11 11:25 | W.IMMPOSTOP ---
Surgical Immed Post Op Note
-
Primary Surgeon: Ayad Gamble MD
Assisting Surgeon:
Pre-op Diagnosis: right hip intertrochanteric fracture
Post-op Diagnosis: right hip intertrochanteric fracture
Procedure Performed: right hip intramedullary fixation
Anesthesia Type: general
Specimen / Cultures: none
Estimated Blood Loss: 100mL
Complications: none apparent
Operative Findings: right hip intertrochanteric fracture
Implants: Casagem Gamma 3 46m032vm nail; 10.8j292ny lag screw; 5x35mm distal interlocking screw
DVT PPX: ASA 325mg daily for 4 weeks
Operative dictation #:[id number]
[2024-06-11] MEDS: DILAUDID 0.5 MG IV (11:37)
[2024-06-11] MEDS: ASPIR LOW (ENTERIC COATED) PO (12:35)
[2024-06-11] MEDS: APRESOLINE PO ×2 (12:36→22:19)
[2024-06-11] MEDS: TOPROL XL PO (12:39)
[2024-06-11] MEDS: VISBIOME 1 CAP PO (13:19)
[2024-06-11] MEDS: SYMMETREL 100 MG PO (13:20)
[2024-06-11] MEDS: DESENEX/MITRAZOL/ZEASORB 1 APPLIC TOPICAL ×2 (13:20→21:44)
[2024-06-11] MEDS: PROTONIX 40 MG PO ×2 (13:20→21:44)
[2024-06-11] MEDS: ZOLOFT 50 MG PO (13:20)
[2024-06-11] MEDS: TRIAMCINOLONE ACETONIDE 0.1% CREAM TOPICAL (13:26)
--- NOTE | 2024-06-11 13:27 | PTCARENOTE ---
Pt arrived from [facility] at aprox 1220. Pt had right hip ORIF done. Pt drowsy but oriented. Vitals stable. Pt able to wiggle toes. Ice to right hip incisions. Dressings with some oozing. Pt with no complaints of pain at this time. Instructed to ring for
assistance.
[2024-06-11] MEDS: TRIAMCINOLONE ACETONIDE 0.1% CREAM 1 APPLIC TOPICAL ×2 (17:27→21:45)
[2024-06-11] MEDS: FLOMAX 0.4 MG PO (18:31)
[2024-06-11] MEDS: LIPITOR 20 MG PO (18:31)
[2024-06-11] MEDS: ASPIRIN 325 MG PO (18:31)
[2024-06-11] MEDS: SENOKOT 17.2 MG PO (19:32)
[2024-06-11] MEDS: COLACE 100 MG PO (19:32)
[2024-06-12] VITALS (7 sets, daily range): BP systolic 70–113; BP diastolic 38–54; PULSE 60; O2SAT 93–95; BMI 31.9
[2024-06-12 05:33] LABS: Hematocrit 23.9 % (39.0-52.0); Hemoglobin 7.9 g/dL (13.0-18.0); Mean Corp Hgb Conc. 33.1 g/dL (33.0-37.0); Mean Corpuscular Hgb 32.6 pg (27.0-31.0); Mean Corpuscular Volume 98.8 fL (80.0-94.0); Mean Platelet Volume 12.6 fL (7.4-10.4); Platelet Count 116 10^3/uL (130-400); Red Blood Cell Count 2.42 10^6/uL (4.70-6.10); Red Cell Dist. Width 17.5 % (11.5-14.5); White Blood Cell Count 7.6 10^3/uL (4.8-10.8)
[2024-06-12 06:01] LABS: ALT (SGPT) 15 U/L (0-50); AST (SGOT) 37 U/L (17-59); Albumin 2.9 g/dl (3.5-5.0); Alkaline Phosphatase 147 U/L (38-126); Blood Urea Nitrogen 82 mg/dl (9-20); Calcium 8.3 mg/dl (8.4-10.2); Carbon Dioxide 24 mmol/L (22-30); Chloride 103 mmol/L (98-107); Estimated Creatinine Clearance 21 ml/min; Glucose 143 mg/dl (70-99); Magnesium 2.4 mg/dl (1.6-2.3); Potassium 4.5 mmol/L (3.5-5.1); Sodium 137 mmol/L (135-145); Total Protein 5.6 g/dl (6.3-8.2); eGFR 20.11
[2024-06-12] MEDS: APRESOLINE PO ×2 (08:25→21:07)
[2024-06-12] MEDS: SYMMETREL 100 MG PO (08:26)
[2024-06-12] MEDS: COLACE 100 MG PO (08:26)
[2024-06-12] MEDS: ASPIRIN 325 MG PO (08:26)
[2024-06-12] MEDS: VISBIOME PO ×2 (08:26→08:30)
[2024-06-12] MEDS: TOPROL XL PO ×3 (08:26→12:12)
[2024-06-12] MEDS: ZOLOFT 50 MG PO (08:26)
[2024-06-12] MEDS: SENOKOT 17.2 MG PO (08:26)
[2024-06-12] MEDS: PROTONIX 40 MG PO ×2 (08:26→21:05)
[2024-06-12] MEDS: DESENEX/MITRAZOL/ZEASORB 1 APPLIC TOPICAL ×2 (08:27→21:07)
[2024-06-12] MEDS: TRIAMCINOLONE ACETONIDE 0.1% CREAM 1 APPLIC TOPICAL ×3 (08:28→23:08)
--- NOTE | 2024-06-12 09:19 | W.PN.ORTHO ---
Today's Communication / Plan
-
PT/OT
Weightbearing as tolerated with walker
Aspirin for DVT prophylaxis
[facility] care facility once medically stable
Skin clip removal 2 weeks postop
Follow-up orthopedics 1 month for x-ray
Assessment
.
Distal Motor Intact: Yes
Dressing:
Clean, dry and intact.
Plan
.
Surgery / Date: R hip Gamma Nail 06/11 [facility]
DVT Prophylaxis: Aspirin
Activity:
Out of bed.
PT/OT
Discharge Plan: SNF
Subjective
.
.:
Patient resting comfortably.
Vital Signs and Labs
.
Vital Signs and Labs:
Lab Results
06/12/24 04:27
06/12/24 04:27
Temp Pulse Resp BP Pulse Ox
97.4 F 61 14 113/47 95
06/12/24 07:15 06/12/24 07:15 06/12/24 07:15 06/12/24 07:15 06/12/24 07:15
[2024-06-12] MEDS: ANCEF 5 IV ×2 (10:26→21:06)
--- NOTE | 2024-06-12 10:30 | PTCARENOTE ---
Pt had an incident while participating in physical therapy today. After working w/ therapy and getting back into bed, Pt became minimally response with eyes rolling back. Bp dropped to 70/41 hr 72. subsequent pressures as Pt began to arouse and
reorient: 94/48 hr 65, 102/46 hr 72. Pt recovered back to baseline within 5-7 min. and able to articulate, AAOx3 as per baseline. Dr Yanez notified and orders received. Call farley is within reach, Pt is resting quietly.
--- NOTE | 2024-06-12 11:00 | W.PN.HOSP.TC ---
Today's Communication/Plan
-
renal consult
2nd 500ml NSS x1 bag
adjusting pain meds
adjusting BP meds with parameters
Assessment / Plan
Assessment / Plan
pt is an 83 year old male
acute RIGHT intertrochanteric proximal femur fracture--apprec orthopedics-- bilateral cellulitis improving --cont ANCEF renally dosed -s/p 1 dose IV vanco--pain control, PT/OT
acute hypotension--suspect vagal--will give 500ml NSS x 1--adjust pain meds, adjust BP meds with parameters
[place] on CKD--creat today 3.0 up from 2.4 on admission-- s/p 500ml NSS, giving another--no improvement with creat-- renal consult--with pro BNP 13449, maybe needs diuresis....Does not appear volume overloaded
acute anemia on anemia of chronic disease (possibly due to renal cause)--no apparent active bleeding--possibly due to long bone fracture and dilution--trend
Transaminitis-�No acute findings� Possible cirrhosis� Follow-up outpatient
Chronic HFpEF --no exacerbation--hold diuretics--2d echo repeat ordered--Keep K>4, Mg>2--daily weights, I/Os--HF diet, 48oz fluid restrict--consider cards consult
paroxysmal afib--came after prior post procedure--in SR currently--not on anticoagulation that I can appreciate
Gout--hold allopurinol for now
Essential HTN--Continue antihypertensives-�Avoid nephrotoxic agents
BPH--Continue flomax
HLD -Continue Statin tx
DVT prophylaxis� HSQ
code status--FULL CODE
Anticipated Discharge: > 48 hours
Subjective/Interval History
-
Date of Service: June 12, 2024
pt had episode of fainting while working with PT--BP 70/40--suspect vagal--improved now
Objective Data
-
Labs:
Laboratory Results
06/12/24 06/12/24 06/12/24
04:27 11:00 19:00
WBC 7.6
Hgb 7.9 L Pending Pending
Hct 23.9 L Pending Pending
Plt Count 116 L
Sodium 137
Potassium 4.5
Chloride 103
Carbon Dioxide 24
BUN 82 H
Creatinine 3.0 H
Glucose 143 H
Calcium 8.3 L
Total Bilirubin 1.0
AST 37
ALT 15
Alkaline Phosphatase 147 H
Vital Signs:
max temp for 24 hours
06/12/24
03:43
Temp 98.9 F
Vital Signs
Temp Pulse Resp BP Pulse Ox
97.4 F 61 14 113/47 95
06/12/24 07:15 06/12/24 07:15 06/12/24 07:15 06/12/24 07:15 06/12/24 07:15
I&O
06/11/24 06/12/24 06/13/24
06:59 06:59 06:59
Intake Total 1435 / 1435 860 / 860 960 / 960
Output Total 200 / 200 1100 / 1100 550 / 550
Balance 1235 / 1235 -240 / -240 410 / 410
Review of Systems
-
All other systems: Reviewed and negative
Physical Exam
-
General: Appears Chronically Ill
HEENT: Normocephalic and Atraumatic; Negative Oxygen
Respiratory: Clear to Auscultation; Negative Wheezes or Rhonchi
Cardiac: Regular Rhythm and S1/S2; Negative Murmur
GI: Soft, Nontender, Nondistended and Normal Bowel Sounds
Musculoskeletal: No Clubbing, No Cyanosis and Other (legs not as warm--approaching baseline)
Neuro: Awake
Psych: Calm
[2024-06-12 11:39] LABS: Hemoglobin 7.5 g/dL (13.0-18.0)
--- NOTE | 2024-06-12 11:46 | W.CON.NEPH ---
Consultation
-
Date/Time Consultation Requested: 06/12/2024 11 AM
Date/Time Consultation Performed: 06/12/2024 11 AM
Requesting Provider: Dr. Yanez
Performing Provider: Dr. Dee
Reason for Consultation: [place]
Medical History
-
Chief Complaint: Fall
History of Present Illness:
This is an 83-year-old gentleman who has hypertension on a multidrug regimen, heart failure with preserved ejection fraction on chronic Lasix therapy, atrial fibrillation on no anticoagulation. He was admitted after sustaining a mechanical fall
onto his right hip resulting in intertrochanteric right hip fracture. He was taken to the operating room on 06/11/2024 for repair. During his hospitalization his creatinine started at 2.4, already up from his baseline of less than 2, and has now
risen to 3.0. He denies any issues with urination. His oral intake has been good. He has no chest pain or shortness of breath. He does feel that his lower extremity edema is somewhat worse than it typically is for him. He has not been receiving
Lasix.
Past Medical History
Coronary artery disease, heart failure preserved ejection fraction, pacemaker ICD, atrial fibrillation, hyperlipidemia, hypertension, Parkinson's, right hip fracture repair
Social History
Tobacco: Non-Smoker
Alcohol: None
Family History
Family History: Not Pertinent
Allergies / Home Medications
Allergy/AdvReac Type Severity Reaction Status Date / Time
rivaroxaban [From Xarelto] Allergy GI Verified 06/09/24 15:55
Bleed-per
cardiac
note
�Medication �Instructions �Recorded �Confirmed �Type
aspirin 81 mg tablet,delayed 81 mg PO DAILY Blood clot 05/14/18 06/09/24 History
release prevention/tx
hydralazine 25 mg tablet 25 mg PO BID Blood pressure 05/14/18 06/09/24 History
metoprolol succinate 100 mg 100 mg PO DAILY Arrhythmia 05/14/18 06/09/24 History
tablet,extended release 24 hr
sertraline 50 mg tablet 50 mg PO DAILY Mental Health 05/14/18 06/09/24 History
pantoprazole 40 mg tablet,delayed 40 mg PO BID Gastrointestinal issue 06/05/18 06/09/24 History
release
Bacillus coagulans 2 billion 1 cap PO DAILY Gastrointestinal 08/20/20 06/09/24 History
cell-calcium 140 mg capsule issue ##0
(Digestive Advantage Probiotic)
allopurinol 300 mg tablet 300 mg PO DAILY Gout 08/20/20 06/09/24 History
simvastatin 40 mg tablet 40 mg PO QPM High cholesterol 08/20/20 06/09/24 History
acetaminophen 325 mg tablet 650 mg PO Q6HPRN PRN mild 05/30/21 06/09/24 History
pain/fever>101
amantadine HCl 100 mg tablet 100 mg PO DAILY Neurological 07/18/22 06/09/24 History
Condition
polyethylene glycol 3350 17 gram 17 g PO DAILYPRN PRN constipation 07/18/22 06/09/24 History
oral powder packet
potassium citrate 10 mEq (1,080 10 meq PO BID Electrolyte Repletion 07/18/22 06/09/24 History
mg) tablet,extended release
tamsulosin 0.4 mg capsule 0.4 mg PO QPM Urinary Issue 07/18/22 06/09/24 History
triamcinolone acetonide 0.1 % 1 applic topical TID Skin Issues 10/29/23 06/09/24 History
topical cream
furosemide 80 mg tablet 80 mg PO BID Fluid 06/09/24 06/09/24 History
Retention/Swelling
Review of Systems
-
Negative unless listed above
All other systems: Negative unless noted
Physical Exam
Vital Signs
Vital Signs
Temp Pulse Resp BP Pulse Ox
97.5 F 61 16 89/41 95
06/12/24 11:00 06/12/24 11:00 06/12/24 11:00 06/12/24 11:00 06/12/24 11:00
Lab Results
WBC 7.6 10^3/uL (4.8-10.8) 06/12/24 04:27
RBC 2.42 10^6/uL (4.70-6.10) L 06/12/24 04:27
Plt Count 116 10^3/uL (130-400) L 06/12/24 04:27
Sodium 137 mmol/L (135-145) 06/12/24 04:27
Potassium 4.5 mmol/L (3.5-5.1) 06/12/24 04:27
Chloride 103 mmol/L (98-107) 06/12/24 04:27
Carbon Dioxide 24 mmol/L (22-30) 06/12/24 04:27
BUN 82 mg/dl (9-20) H 06/12/24 04:27
Creatinine 3.0 mg/dL (0.7-1.3) H 06/12/24 04:27
eGFR 20.11 06/12/24 04:27
Glucose 143 mg/dl (70-99) H 06/12/24 04:27
Calcium 8.3 mg/dl (8.4-10.2) L 06/12/24 04:27
Ovq-F-Gpopuihyuja Pept 62574 pg/ml 06/11/24 06:31
Albumin 2.9 g/dl (3.5-5.0) L 06/12/24 04:27
Laboratory Tests
10/30/23 03/04/24 06/11/24
05:35 20:10 06:31
Creatinine 1.3 1.8 H
Isi-T-Mrnwrkbkepk Pept 8270 19475
Albumin
06/12/24
04:27
Creatinine
Rco-I-Eddevmdupnk Pept
Albumin 2.9 L
Physical Exam
Patient is awake alert oriented and in no distress. Mood and affect were pleasant, insight and judgment were good. Pupils are equal round and reactive to light, extraocular movements are intact, sclera were anicteric. Hearing was normal, ears and
nose are intact. Oropharynx was clear. Neck was supple with trachea midline and no thyromegaly. Heart was regular rate and rhythm without rubs. Lower extremities with 3+edema. Lungs were clear to auscultation bilaterally and with normal excursion.
Abdomen was soft, nontender, with normal active bowel sounds, and no hepatosplenomegaly. Skin was without rash and with normal turgor.
Data Reviewed
-
Radiology: Image Personally Visualized and interpreted (Chest x-ray 06/10/2024 by my reading shows cardiomegaly no acute disease)
Medical Tests (Nuc Med, Echo etc): Report Reviewed by me (Echocardiogram October 30, 2023 ejection fraction 50% concentric LVH mild mitral digitation moderate tricuspid regurgitation)
Labs: Labs Reviewed by me
Old Records: Reviewed
Assessment/Plan
-
Assessment
Hypotension
Heart failure preserved ejection fraction
[place]
Right hip fracture repair
Anemia
Elevated LFTs
Paroxysmal atrial fibrillation
Gout
Plan
Check urine studies
Check bladder scan
Add midodrine
Lasix today after urine studies sent
Follow BMP
Suspect [place] is prerenal mediated due to hypotension
[2024-06-12] MEDS: ProAmatine 10 MG PO ×2 (12:18→18:44)
--- NOTE | 2024-06-12 16:20 | PTOTSP ---
Speech Pathology
Clinical Swallow Evaluation
83M admitted for fall s/p hip fx and [place] p/w a at most a mildly impaired oral phase of swallowing 2/2 missing dentition and a WNL pharyngeal phase of swallowing. No overt s/s of aspiration observed this date. Pt denies dysphagia symptoms. No further
SECURITY CONTROLS ASSESSOR tx warranted at this time. Please reconsult if overt s/s of aspiration arise.
Recommend:
1. Regular textures (IDDSI 7), thin liquids (IDDSI 0)
2. Meds as best tolerated
3. Safe swallowing strategies: small bites, single sips, alternate bites and sips, opt for soft textures as able to assist with chewing, slow rate
4. SECURITY CONTROLS ASSESSOR service to s/o re: no further tx warranted at this time, pt appears to be at his baseline. Please reconsult service if overt s/s of aspiration arise.
[2024-06-12] MEDS: LIPITOR 20 MG PO (18:43)
[2024-06-12] MEDS: LASIX 40 MG IV (18:43)
[2024-06-12] MEDS: FLOMAX 0.4 MG PO (18:44)
[2024-06-12 20:00] LABS: Urine Albumin 1+ (Neg - Trace); Urine Bilirubin Negative (Negative); Urine Character Clear (Clear); Urine Color Amber; Urine Glucose Negative (Negative); Urine Ketone Negative (Negative); Urine Leukocyte Negative (Negative); Urine Nitrite Negative (Negative); Urine Occult Blood Negative (Negative); Urine Urobilinogen Negative (Neg - 1+)
[2024-06-12 20:25] LABS: Urine Sodium 13 mmol/L (30-90)
[2024-06-12 20:27] LABS: Urine Red Blood Cell 0-2 /HPF (0-2)
[2024-06-12 20:28] LABS: Hematocrit 23.2 % (39.0-52.0); Hemoglobin 7.7 g/dL (13.0-18.0)
[2024-06-12] MEDS: CYKLOKAPRON 650 MG PO (21:05)
[2024-06-12] MEDS: SENOKOT PO (21:06)
[2024-06-12] MEDS: COLACE PO (21:06)
[2024-06-12 21:11] LABS: Body Fluid for Eosinophils No Eosinophils seen
[2024-06-13] VITALS (9 sets, daily range): BP systolic 86–113; BP diastolic 40–60; BMI 31.8
[2024-06-13 03:54] LABS: Hematocrit 22.5 % (39.0-52.0); Hemoglobin 7.4 g/dL (13.0-18.0)
[2024-06-13 07:03] LABS: Hemoglobin 7.6 g/dL (13.0-18.0); Mean Corpuscular Hgb 32.3 pg (27.0-31.0); Mean Corpuscular Volume 97.9 fL (80.0-94.0); Mean Platelet Volume 12.1 fL (7.4-10.4); Platelet Count 129 10^3/uL (130-400); Red Blood Cell Count 2.35 10^6/uL (4.70-6.10); Red Cell Dist. Width 17.6 % (11.5-14.5)
[2024-06-13 07:19] LABS: Blood Urea Nitrogen 92 mg/dl (9-20); Calcium 8.5 mg/dl (8.4-10.2); Carbon Dioxide 23 mmol/L (22-30); Chloride 100 mmol/L (98-107); Estimated Creatinine Clearance 20 ml/min; Glucose 133 mg/dl (70-99); Magnesium 2.4 mg/dl (1.6-2.3); Potassium 4.4 mmol/L (3.5-5.1); Sodium 134 mmol/L (135-145); eGFR 18.61
[2024-06-13] MEDS: APRESOLINE 25 MG PO (08:29)
[2024-06-13] MEDS: COLACE PO (08:30)
[2024-06-13] MEDS: PROTONIX 40 MG PO ×2 (08:30→19:39)
[2024-06-13] MEDS: ASPIRIN 325 MG PO (08:30)
[2024-06-13] MEDS: TOPROL XL 75 MG PO (08:30)
[2024-06-13] MEDS: SYMMETREL 100 MG PO (08:30)
[2024-06-13] MEDS: ProAmatine 10 MG PO ×3 (08:30→16:59)
[2024-06-13] MEDS: ZYLOPRIM 300 MG PO (08:31)
[2024-06-13] MEDS: SENOKOT PO (08:31)
[2024-06-13] MEDS: ZOLOFT 50 MG PO (08:31)
[2024-06-13] MEDS: TRIAMCINOLONE ACETONIDE 0.1% CREAM 1 APPLIC TOPICAL ×3 (08:32→22:28)
[2024-06-13] MEDS: DESENEX/MITRAZOL/ZEASORB 1 APPLIC TOPICAL ×2 (08:33→19:39)
[2024-06-13] MEDS: VISBIOME PO (08:34)
--- NOTE | 2024-06-13 08:35 | W.PN.ORTHO ---
Today's Communication / Plan
-
Appreciate the primary team, continue care
Dispo likely SNF, appreciate CM
Continue WBAT RLE on walker/assistance
PT/OT
Dressing changes prn, may be changed prior to D/C
ASA 325mg daily x 4 weeks for DVT ppx
ice/elevation/pain control
Outpatient Ortho follow-up 2 weeks for staple removal (unless removed at SNF)
If charleen out at SNF outpatient Ortho follow-up 4 weeks
Orthopedics to sign off for now, please reengage as necessary with any pertinent questions
Assessment
.
Distal Motor Intact: Yes
Dressing:
Aquacel in place with mild, contained strikethrough (changed last evening)
Assessment:
POD#2 Right Gamma
Overall doing/feeling well
Calf soft, nontender
Plan
.
Surgery / Date: R hip Gamma Nail 11 June ([facility])
DVT Prophylaxis: Aspirin
Activity:
Out of bed./ WBAT RLE on walker/assistance
PT/OT
Discharge Plan: SNF (appreciate CM)
Subjective
.
.:
Patient resting comfortably. Mild right hip pain this AM
Vital Signs and Labs
.
Vital Signs and Labs:
Lab Results
06/13/24 06:39
06/13/24 06:39
Temp Pulse Resp BP Pulse Ox
97.7 F 62 16 113/46 99
06/13/24 08:06 06/13/24 08:06 06/13/24 08:06 06/13/24 08:06 06/13/24 08:06
--- NOTE | 2024-06-13 09:21 | W.PN.HOSP.TC ---
Today's Communication/Plan
-
follow up further renal recs to help with fluid balance; also repeating TTE
IV Cefazolin
PT/OT, eventual SNF
Assessment / Plan
Assessment / Plan
pt is an 83 year old male
acute RIGHT intertrochanteric proximal femur fracture
-06/11/24 s/p Right hip intramedullary fixation
-appreciate Orthopedics
-pain control
-PT/OT, eventual SNF
-charleen out in 2 weeks
-outpatient ortho follow up
-asa 325 for DVT PPx
Bilateral Cellulitis
-started on IV Cefazolin, improving
-eventual transition to Keflex to complete 10 day course
acute hypotension on 06/12--suspect vagal--s/p 500ml NSS x 1--adjust pain meds, adjust BP meds with parameters
[place] on CKD--creat today 3.0 up from 2.4 on admission--
-appreciate renal
-s/p IV lasix given on 06/12
-urine sodium low
-follow up further renal recs
acute anemia on anemia of chronic disease (possibly due to renal cause)--no apparent active bleeding--possibly due to long bone fracture and dilution--trend
Transaminitis-�No acute findings� Possible cirrhosis� Follow-up outpatient
Chronic HFpEF; diuretics held and current volume status unclear
-repeat echo
paroxysmal afib--came after prior post procedure--in SR currently--not on anticoagulation
Gout--hold allopurinol for now
Essential HTN--Continue antihypertensives-�Avoid nephrotoxic agents
BPH--Continue flomax
HLD -Continue Statin tx
DVT prophylaxis� asa 325
code status--FULL CODE
51 minutes spent on patient care
Anticipated Discharge: 24 - 48 hours
Subjective/Interval History
-
Date of Service: June 13, 2024
feeling well
no questions or complaints
Objective Data
-
Labs:
Laboratory Results
06/13/24 06/13/24
03:40 06:39
WBC 11.0 H
Hgb 7.4 L 7.6 L
Hct 22.5 L 23.0 L
Plt Count 129 L
Sodium 134 L
Potassium 4.4
Chloride 100
Carbon Dioxide 23
BUN 92 H
Creatinine 3.2 H
Glucose 133 H
Calcium 8.5
Vital Signs:
Vital Signs
Temp Pulse Resp BP Pulse Ox
97.7 F 62 16 113/46 99
06/13/24 08:06 06/13/24 08:06 06/13/24 08:06 06/13/24 08:06 06/13/24 08:06
I&O
06/12/24 06/13/24 06/14/24
06:59 06:59 06:59
Intake Total 860 / 860 2250 / 2250 120 / 120
Output Total 1100 / 1100 1445 / 1445
Balance -240 / -240 805 / 805 120 / 120
Review of Systems
-
History Source: Patient
All other systems: Reviewed and negative
Physical Exam
-
General: Appears Chronically Ill
HEENT: Normocephalic and Atraumatic; Negative Oxygen
Respiratory: Clear to Auscultation; Negative Wheezes or Rhonchi
Cardiac: Regular Rhythm and S1/S2; Negative Murmur
GI: Soft, Nontender, Nondistended and Normal Bowel Sounds
Musculoskeletal: No Clubbing, No Cyanosis and Other (legs not as warm--approaching baseline)
Neuro: Awake
Psych: Calm
Data Reviewed
-
Diagnostic Radiology: Report Reviewed by me
Labs: Labs Reviewed by me
[2024-06-13] MEDS: ANCEF 5 IV ×2 (10:13→22:27)
--- NOTE | 2024-06-13 11:59 | CM ---
Patient [place]. Patient still on O2 and patient PT/OT recommendation is for SNF. CM will update referral information and follow for confirmation of acceptance. CM will continue to follow for discharge planning needs.
Plan; SNF
--- NOTE | 2024-06-13 12:00 | PTCARENOTE ---
Patient hypotensive prior to potential PT session. BP 83/35, HR V-Paced 60. Patient also with active oozing at right hip and thigh aquacel. Changed dressing and notified covering provider and orthopedic MD. Applied KINDRA wrap with assistance by PT to
R Thigh/Hip for compression per Ortho.
Patient to receive 1 Unit PRBC once Type and Screen confirmed. Guadarrama placed for retention after discussing with MD.
[2024-06-13] MEDS: ProAmatine 5 MG PO (12:10)
--- NOTE | 2024-06-13 13:13 | W.PN.NEPH.PH ---
Today's Communication / Plan
-
Guadarrama catheter, PRBC, midodrine
Assessment/Plan
-
Assessment
Hypotension
Heart failure preserved ejection fraction
[place] = m baseline creatinine 1.6-1.8, admitting creatinine 2.4
Right hip fracture repair
Anemia
Elevated LFTs
Paroxysmal atrial fibrillation
Gout
Plan
Continue manage
Hold Lasix
Follow BMP
Renal function remains the same with urine retention.
Guadarrama catheter replaced today.
Urine sodium 13
Receiving packed red blood cells help effective arterial blood volume.
Consider albumin
-
-
Date of Service: June 13, 2024
CC / HPI / ROS
-
Chief Complaint:
Status post fall hip fracture
History of Present Illness:
Acute on chronic kidney disease baseline creatinine 1.8 with admitting creatinine 2.4
Review of Systems:.
No chest pain or shortness of breath. Urinary retention with Guadarrama catheter
Labs
-
Labs:
WBC 11.0 10^3/uL (4.8-10.8) H 06/13/24 06:39
RBC 2.35 10^6/uL (4.70-6.10) L 06/13/24 06:39
Hgb 7.6 g/dL (13.0-18.0) L 06/13/24 06:39
Hct 23.0 % (39.0-52.0) L 06/13/24 06:39
Plt Count 129 10^3/uL (130-400) L 06/13/24 06:39
Sodium 134 mmol/L (135-145) L 06/13/24 06:39
Potassium 4.4 mmol/L (3.5-5.1) 06/13/24 06:39
Chloride 100 mmol/L (98-107) 06/13/24 06:39
Carbon Dioxide 23 mmol/L (22-30) 06/13/24 06:39
BUN 92 mg/dl (9-20) H 06/13/24 06:39
Creatinine 3.2 mg/dL (0.7-1.3) H 06/13/24 06:39
eGFR 18.61 06/13/24 06:39
Glucose 133 mg/dl (70-99) H 06/13/24 06:39
Calcium 8.5 mg/dl (8.4-10.2) 06/13/24 06:39
Eqe-H-Zpxetseynza Pept 09796 pg/ml 06/11/24 06:31
Albumin 2.9 g/dl (3.5-5.0) L 06/12/24 04:27
Physical Exam
-
Vital Signs:
Vital Signs
Temp Pulse Resp BP Pulse Ox
97.6 F 61 16 95/60 99
06/13/24 10:56 06/13/24 12:10 06/13/24 10:56 06/13/24 12:10 06/13/24 10:56
Respiratory:: Bilateral: CTA
Lung Excursion:: Normal
Abdomen:: Soft
Bowel Sounds:: Normal
Extremity Edema:: +1: Bilateral:
Guadarrama Catheter: Yes
[2024-06-13] MEDS: LIPITOR 20 MG PO (16:59)
[2024-06-13] MEDS: FLOMAX 0.4 MG PO (16:59)
[2024-06-13] MEDS: SENOKOT 17.2 MG PO (19:39)
[2024-06-13] MEDS: COLACE 100 MG PO (19:39)
[2024-06-13] MEDS: TYLENOL 650 MG PO (19:40)
[2024-06-14] VITALS (8 sets, daily range): BP systolic 90–104; BP diastolic 45–57; PULSE 61–73; O2SAT 95–100; BMI 32.2
[2024-06-14 06:11] LABS: Hematocrit 24.1 % (39.0-52.0); Hemoglobin 8.2 g/dL (13.0-18.0); Mean Corpuscular Hgb 31.5 pg (27.0-31.0); Mean Corpuscular Volume 92.7 fL (80.0-94.0); Mean Platelet Volume 12.1 fL (7.4-10.4); Platelet Count 127 10^3/uL (130-400); Red Cell Dist. Width 18.6 % (11.5-14.5); White Blood Cell Count 8.9 10^3/uL (4.8-10.8)
[2024-06-14 06:32] LABS: Blood Urea Nitrogen 96 mg/dl (9-20); Calcium 8.4 mg/dl (8.4-10.2); Carbon Dioxide 23 mmol/L (22-30); Chloride 96 mmol/L (98-107); Estimated Creatinine Clearance 18 ml/min; Glucose 131 mg/dl (70-99); Potassium 4.5 mmol/L (3.5-5.1); Sodium 132 mmol/L (135-145); eGFR 16.16
[2024-06-14] MEDS: VISBIOME PO ×2 (08:31→10:32)
[2024-06-14] MEDS: SYMMETREL 100 MG PO (08:31)
[2024-06-14] MEDS: SENOKOT 17.2 MG PO ×2 (08:31→21:13)
[2024-06-14] MEDS: ASPIRIN 325 MG PO (08:31)
[2024-06-14] MEDS: ZYLOPRIM 300 MG PO (08:31)
[2024-06-14] MEDS: ZOLOFT 50 MG PO (08:31)
[2024-06-14] MEDS: PROTONIX 40 MG PO ×2 (08:31→21:13)
[2024-06-14] MEDS: COLACE 100 MG PO ×2 (08:31→21:13)
[2024-06-14] MEDS: TRIAMCINOLONE ACETONIDE 0.1% CREAM 1 APPLIC TOPICAL ×3 (08:32→21:15)
[2024-06-14] MEDS: TOPROL XL 75 MG PO (08:35)
[2024-06-14] MEDS: ProAmatine 10 MG PO ×3 (08:36→17:24)
[2024-06-14] MEDS: DESENEX/MITRAZOL/ZEASORB 1 APPLIC TOPICAL ×2 (08:36→21:15)
--- NOTE | 2024-06-14 09:55 | W.PN.HOSP.TC ---
Today's Communication/Plan
-
discussing diuresis with Renal
PT/OT
Assessment / Plan
Assessment / Plan
pt is an 83 year old male with hx CKD, HFpEF, paroxysmal afib, gout, essential HTN, BPH who presents to the ER 06/09 with right hip pain post fall, found to have right intertrochanteric proximal femur fracture. Post-op course c/b worsening renal
function, anemia. He has also been treated for LE cellulitis.
Right Hip X-Ray:
IMPRESSION: Acute intertrochanteric fracture right femur.
Abdomen US:
IMPRESSION:
1. Mildly heterogeneous hepatic echotexture, most likely related to cirrhosis as seen on previous CT. No abnormal focal hepatic lesions identified.
2. Simple benign right renal parapelvic cyst.
CXR 06/10/24
IMPRESSION: Unchanged cardiomegaly. No findings highly suspicious for alveolar or interstitial edema. There is probable minimal right effusion. Small amount of left retrocardiac opacity which is most likely atelectatic.
TTE 06/13/24
CONCLUSIONS
Normal left ventricular systolic function. Left ventricular ejection fraction
is 50-55%.
Mild/moderate eccentric mitral regurgitation.
Enlarged right ventricular size. Reduced right ventricular systolic function.
Septal flattening in systole and diastole consistent with RV pressure and
volume overload.
Moderate/severe tricuspid regurgitation. Severely elevated PASP. Estimated
pulmonary artery pressure of 75 mmHg, assuming a right atrial pressure of 15
mmHg.
Compared to 10/30/23: RV function is now mildly reduced. TR has progressed from
mild/moderate to moderate/severe. PASP has increased from 45 mmHg to 75 mmHg.
MR has progressed from mild to mild/moderate.
Other Finding
The IVC is dilated and does not collapse. Interatrial septum is intact with no
evidence of shunting by color flow Doppler. No intracardiac mass or thrombus
formation seen.
acute right intertrochanteric proximal femur fracture
-06/11/24 s/p Right hip intramedullary fixation
-appreciate Orthopedics
-pain control
-PT/OT, eventual SNF
-charleen out in 2 weeks
-outpatient ortho follow up
-asa 325 for DVT PPx
[place] on CKD
-appreciate renal
-s/p IV lasix 40mg given on 06/12
-urine sodium low
-TTE from 06/13 shows dilated IVC - discussing further diuresis with Renal
Acute on Chronic HFpEF
-diuretics have been held pre-op
-TTE shows dilated IVC
-patient is on Lasix 80mg PO BID at home
-discussing diuresis with renal
Urinary Retention - s/p marcus catheter placement on 06/13
Bilateral Cellulitis
-started on IV Cefazolin, improving
-eventual transition to Keflex to complete 10 day course
acute hypotension on 06/12--suspect vagal--s/p 500ml NSS x 1--adjust pain meds, adjust BP meds with parameters
acute anemia on anemia of chronic disease (possibly due to renal cause
post-op anemia
-s/p 1 unit PRBC on 06/13
-Hg > 8 this morning, monitor daily
Transaminitis-�No acute findings� Possible cirrhosis� Follow-up outpatient
paroxysmal afib--came after prior post procedure--in SR currently--not on anticoagulation
Gout--hold allopurinol for now
Essential HTN--Continue antihypertensives-�Avoid nephrotoxic agents
BPH--Continue flomax
HLD -Continue Statin tx
DVT prophylaxis� asa 325
code status--FULL CODE
51 minutes spent on patient care
Anticipated Discharge: > 48 hours
Subjective/Interval History
-
Date of Service: June 14, 2024
he denies swelling or shortness of breath
has marcus catheter in
Objective Data
-
Labs:
Laboratory Results
06/14/24
05:42
WBC 8.9
Hgb 8.2 L
Hct 24.1 L
Plt Count 127 L
Sodium 132 L
Potassium 4.5
Chloride 96 L
Carbon Dioxide 23
BUN 96 H
Creatinine 3.6 H
Glucose 131 H
Calcium 8.4
Vital Signs:
Vital Signs
Temp Pulse Resp BP Pulse Ox
97.5 F 61 16 105/50 95
06/14/24 07:30 06/14/24 08:36 06/14/24 07:30 06/14/24 08:36 06/14/24 07:30
I&O
06/13/24 06/14/24 06/15/24
06:59 06:59 06:59
Intake Total 2250 / 2250 370 / 370
Output Total 1445 / 1445 650 / 650
Balance 805 / 805 -280 / -280
Review of Systems
-
History Source: Patient
All other systems: Reviewed and negative
Physical Exam
-
General: Appears Chronically Ill
HEENT: Normocephalic and Atraumatic; Negative Oxygen
Respiratory: Clear to Auscultation; Negative Wheezes or Rhonchi
Cardiac: Regular Rhythm, S1/S2 and JVD; Negative Murmur
GI: Soft, Nontender, Nondistended and Normal Bowel Sounds
Musculoskeletal: No Clubbing, No Cyanosis and Other (b/l edema and venous stasis discoloration )
Neuro: Awake and AO x 3
Psych: Calm
Data Reviewed
-
Diagnostic Radiology: Report Reviewed by me
Labs: Labs Reviewed by me
[2024-06-14] MEDS: LASIX 80 MG IV ×2 (10:32→15:51)
[2024-06-14] MEDS: ANCEF 5 IV ×2 (10:33→21:13)
--- NOTE | 2024-06-14 10:44 | CM ---
Patient seen at bedside.
PT/OT rec SNF
Discussed options - states he has been at [facility] in past & prefers.
Referral entered in [facility]
Will need ins auth
PLAN: SNF, pending bed availability, will need to obtain ins auth
--- NOTE | 2024-06-14 11:17 | W.PN.NEPH.PH ---
Today's Communication / Plan
-
Lasix 80 mg
Assessment/Plan
-
Assessment
Hypotension
Heart failure preserved ejection fraction
[place] = m baseline creatinine 1.6-1.8, admitting creatinine 2.4
Right hip fracture repair
Anemia
Elevated LFTs
Paroxysmal atrial fibrillation
Gout
Plan
Renal function remains the same with urine retention.
Guadarrama catheter replaced for urinary retention
Urine sodium 13 in the setting of volume overload and right-sided heart failure with echocardiogram 06/13 showing increased right pressures and dilated IVC
Discussed with hospitalist and agree with Lasix 80 mg despite elevated creatinine today of 3.6
-
-
Date of Service: June 14, 2024
CC / HPI / ROS
-
Chief Complaint:
Status post fall hip fracture
History of Present Illness:
Acute on chronic kidney disease baseline creatinine 1.8 with admitting creatinine 2.4
Review of Systems:.
No chest pain or shortness of breath. Urinary retention with Guadarrama catheter
Labs
-
Labs:
WBC 8.9 10^3/uL (4.8-10.8) 06/14/24 05:42
RBC 2.60 10^6/uL (4.70-6.10) L 06/14/24 05:42
Hgb 8.2 g/dL (13.0-18.0) L 06/14/24 05:42
Hct 24.1 % (39.0-52.0) L 06/14/24 05:42
Plt Count 127 10^3/uL (130-400) L 06/14/24 05:42
Sodium 132 mmol/L (135-145) L 06/14/24 05:42
Potassium 4.5 mmol/L (3.5-5.1) 06/14/24 05:42
Chloride 96 mmol/L (98-107) L 06/14/24 05:42
Carbon Dioxide 23 mmol/L (22-30) 06/14/24 05:42
BUN 96 mg/dl (9-20) H 06/14/24 05:42
Creatinine 3.6 mg/dL (0.7-1.3) H 06/14/24 05:42
eGFR 16.16 06/14/24 05:42
Glucose 131 mg/dl (70-99) H 06/14/24 05:42
Calcium 8.4 mg/dl (8.4-10.2) 06/14/24 05:42
Qxc-W-Mxyyqrtnkpw Pept 68296 pg/ml 06/11/24 06:31
Albumin 2.9 g/dl (3.5-5.0) L 06/12/24 04:27
Physical Exam
-
Vital Signs:
Vital Signs
Temp Pulse Resp BP Pulse Ox
97.5 F 61 16 94/40 95
06/14/24 07:30 06/14/24 10:32 06/14/24 07:30 06/14/24 10:32 06/14/24 07:30
Respiratory:: Bilateral: Coarse
Lung Excursion:: Normal
Abdomen:: Soft
Bowel Sounds:: Normal
Extremity Edema:: +1: Bilateral:
Guadarrama Catheter: Yes
[2024-06-14] MEDS: LIPITOR 20 MG PO (17:24)
[2024-06-14] MEDS: FLOMAX 0.4 MG PO (17:24)
[2024-06-15] VITALS (9 sets, daily range): BP systolic 93–164; BP diastolic 42–59; PULSE 60; O2SAT 93; BMI 31.8
--- NOTE | 2024-06-15 04:44 | DOWNTIME ---
There was a [employer] Downtime on 06/15/2024 from 0100 to 06/16/2023 at 0420 . Downtime documentation of patient's care, including medication administrations, has been reconciled in the electronic record per guidelines. Refer to the
patient's paper chart under the miscellaneous tab to see printed paper medication records and downtime forms.
[2024-06-15 07:23] LABS: Hematocrit 24.9 % (39.0-52.0); Hemoglobin 8.2 g/dL (13.0-18.0); Mean Corp Hgb Conc. 32.9 g/dL (33.0-37.0); Mean Corpuscular Hgb 31.3 pg (27.0-31.0); Mean Platelet Volume 11.4 fL (7.4-10.4); Platelet Count 136 10^3/uL (130-400); Red Blood Cell Count 2.62 10^6/uL (4.70-6.10); Red Cell Dist. Width 18.8 % (11.5-14.5); White Blood Cell Count 8.4 10^3/uL (4.8-10.8)
[2024-06-15 07:54] LABS: Blood Urea Nitrogen 101 mg/dl (9-20); Calcium 8.3 mg/dl (8.4-10.2); Carbon Dioxide 26 mmol/L (22-30); Chloride 95 mmol/L (98-107); Estimated Creatinine Clearance 19 ml/min; Glucose 120 mg/dl (70-99); Potassium 3.9 mmol/L (3.5-5.1); Sodium 132 mmol/L (135-145)
[2024-06-15] MEDS: ASPIRIN 325 MG PO (08:39)
[2024-06-15] MEDS: SENOKOT 17.2 MG PO ×2 (08:39→20:15)
[2024-06-15] MEDS: ProAmatine 10 MG PO ×2 (08:39→16:15)
[2024-06-15] MEDS: TOPROL XL 75 MG PO (08:39)
[2024-06-15] MEDS: ZOLOFT 50 MG PO (08:39)
[2024-06-15] MEDS: PROTONIX 40 MG PO ×2 (08:40→20:15)
[2024-06-15] MEDS: VISBIOME 1 CAP PO (08:40)
[2024-06-15] MEDS: ZYLOPRIM 300 MG PO (08:40)
[2024-06-15] MEDS: LASIX 80 MG IV ×2 (08:40→16:16)
[2024-06-15] MEDS: COLACE 100 MG PO ×2 (08:40→20:15)
[2024-06-15] MEDS: SYMMETREL 100 MG PO (08:40)
[2024-06-15] MEDS: TRIAMCINOLONE ACETONIDE 0.1% CREAM 1 APPLIC TOPICAL ×3 (08:41→22:30)
[2024-06-15] MEDS: DESENEX/MITRAZOL/ZEASORB 1 APPLIC TOPICAL ×2 (08:41→20:15)
--- NOTE | 2024-06-15 09:56 | W.PN.HOSP.TC ---
Addendum entered and electronically signed by Christa Alarcon MD 06/16/24 10:23:
Acute blood loss anemia with anemia of chronic disease
-s/p 1 unit PRBC with appropirate rise
Original Note:
Today's Communication/Plan
-
diuresis
LE US
appreciate Renal
start hep subQ while here
Assessment / Plan
Assessment / Plan
pt is an 83 year old male with hx CKD, HFpEF, paroxysmal afib, gout, essential HTN, BPH who presents to the ER 06/09 with right hip pain post fall, found to have right intertrochanteric proximal femur fracture. Post-op course c/b worsening renal
function, anemia. He has also been treated for LE cellulitis.
Right Hip X-Ray:
IMPRESSION: Acute intertrochanteric fracture right femur.
Abdomen US:
IMPRESSION:
1. Mildly heterogeneous hepatic echotexture, most likely related to cirrhosis as seen on previous CT. No abnormal focal hepatic lesions identified.
2. Simple benign right renal parapelvic cyst.
CXR 06/10/24
IMPRESSION: Unchanged cardiomegaly. No findings highly suspicious for alveolar or interstitial edema. There is probable minimal right effusion. Small amount of left retrocardiac opacity which is most likely atelectatic.
TTE 06/13/24
CONCLUSIONS
Normal left ventricular systolic function. Left ventricular ejection fraction
is 50-55%.
Mild/moderate eccentric mitral regurgitation.
Enlarged right ventricular size. Reduced right ventricular systolic function.
Septal flattening in systole and diastole consistent with RV pressure and
volume overload.
Moderate/severe tricuspid regurgitation. Severely elevated PASP. Estimated
pulmonary artery pressure of 75 mmHg, assuming a right atrial pressure of 15
mmHg.
Compared to 10/30/23: RV function is now mildly reduced. TR has progressed from
mild/moderate to moderate/severe. PASP has increased from 45 mmHg to 75 mmHg.
MR has progressed from mild to mild/moderate.
Other Finding
The IVC is dilated and does not collapse. Interatrial septum is intact with no
evidence of shunting by color flow Doppler. No intracardiac mass or thrombus
formation seen.
acute right intertrochanteric proximal femur fracture
-06/11/24 s/p Right hip intramedullary fixation
-appreciate Orthopedics
-pain control
-PT/OT, eventual SNF
-charleen out in 2 weeks
-outpatient ortho follow up
-asa 325 for DVT PPx
[place] on CKD
-appreciate renal
-s/p IV lasix 40mg given on 06/12
-urine sodium low
-TTE from 06/13 shows dilated IVC
-continue diuresis (see below)
Acute on Chronic HFpEF
-diuretics have been held pre-op
-TTE shows dilated IVC
-patient is on Lasix 80mg PO BID at home
-continue Lasix 80mg IV BID
Urinary Retention - s/p marcus catheter placement on 06/13
Bilateral Cellulitis
-started on IV Cefazolin, improving
-eventual transition to Keflex to complete 10 day course
-obtain LE doppler US today
acute hypotension on 06/12--suspect vagal--s/p 500ml NSS x 1--adjust pain meds, adjust BP meds with parameters
acute anemia on anemia of chronic disease (possibly due to renal cause
post-op anemia
-s/p 1 unit PRBC on 06/13
-Hg > 8 this morning, monitor daily
Transaminitis-�No acute findings� Possible cirrhosis� Follow-up outpatient
paroxysmal afib--came after prior post procedure--in SR currently--not on anticoagulation
Gout--hold allopurinol for now
Essential HTN--Continue antihypertensives-�Avoid nephrotoxic agents
BPH--Continue flomax
HLD -Continue Statin tx
DVT prophylaxis� asa 325, start hep subQ while in hospital
code status--FULL CODE
51 minutes spent on patient care
Anticipated Discharge: > 48 hours
Subjective/Interval History
-
Date of Service: June 15, 2024
denies chest pain at rest or pleuritic
no shortness of breath
Objective Data
-
Labs:
Laboratory Results
06/15/24
06:53
WBC 8.4
Hgb 8.2 L
Hct 24.9 L
Plt Count 136
Sodium 132 L
Potassium 3.9
Chloride 95 L
Carbon Dioxide 26
BUN 101 H*
Creatinine 3.4 H
Glucose 120 H
Calcium 8.3 L
Vital Signs:
Vital Signs
Temp Pulse Resp BP Pulse Ox
97.6 F 61 16 113/49 95
06/15/24 07:05 06/15/24 07:05 06/15/24 07:05 06/15/24 07:05 06/15/24 07:05
I&O
06/14/24 06/15/24 06/16/24
06:59 06:59 06:59
Intake Total 370 / 370 645 / 645
Output Total 650 / 650 1000 / 1000
Balance -280 / -280 -355 / -355
Review of Systems
-
History Source: Patient
All other systems: Reviewed and negative
Physical Exam
-
General: Appears Chronically Ill
HEENT: Normocephalic and Atraumatic; Negative Oxygen
Respiratory: Clear to Auscultation; Negative Wheezes or Rhonchi
Cardiac: Regular Rhythm, S1/S2 and JVD; Negative Murmur
GI: Soft, Nontender, Nondistended and Normal Bowel Sounds
Musculoskeletal: No Clubbing, No Cyanosis and Other (b/l edema and venous stasis discoloration )
Neuro: Awake and AO x 3
Psych: Calm
Data Reviewed
-
Diagnostic Radiology: Report Reviewed by me
Labs: Labs Reviewed by me
--- NOTE | 2024-06-15 09:59 | W.PN.NEPH.PH ---
Today's Communication / Plan
-
Follow BMP
Assessment/Plan
-
Assessment
Hypotension
Heart failure preserved ejection fraction
[place] = m baseline creatinine 1.6-1.8, admitting creatinine 2.4
Right hip fracture repair
Anemia
Elevated LFTs
Paroxysmal atrial fibrillation
Gout
Plan
Follow BMP
May continue Lasix as is
Guadarrama catheter replaced for urinary retention
Check urine sodium in light of Lasix usage
Check EKG
There may be a possibility of pulmonary embolism though suspicion is low
-
-
Date of Service: June 15, 2024
CC / HPI / ROS
-
Chief Complaint:
Status post fall hip fracture
History of Present Illness:
[place]/creatinine down to 3.4
sodium low 132 stable
potassium stable normal
BP stable
Review of Systems:.
No chest pain or shortness of breath. Urinary retention with Guadarrama catheter
Labs
-
Labs:
WBC 8.4 10^3/uL (4.8-10.8) 06/15/24 06:53
RBC 2.62 10^6/uL (4.70-6.10) L 06/15/24 06:53
Hgb 8.2 g/dL (13.0-18.0) L 06/15/24 06:53
Hct 24.9 % (39.0-52.0) L 06/15/24 06:53
Plt Count 136 10^3/uL (130-400) 06/15/24 06:53
Sodium 132 mmol/L (135-145) L 06/15/24 06:53
Potassium 3.9 mmol/L (3.5-5.1) 06/15/24 06:53
Chloride 95 mmol/L (98-107) L 06/15/24 06:53
Carbon Dioxide 26 mmol/L (22-30) 06/15/24 06:53
BUN 101 mg/dl (9-20) H* 06/15/24 06:53
Creatinine 3.4 mg/dL (0.7-1.3) H 06/15/24 06:53
eGFR 17.30 06/15/24 06:53
Glucose 120 mg/dl (70-99) H 06/15/24 06:53
Calcium 8.3 mg/dl (8.4-10.2) L 06/15/24 06:53
Znc-P-Fnsuscsaugv Pept 64444 pg/ml 06/11/24 06:31
Albumin 2.9 g/dl (3.5-5.0) L 06/12/24 04:27
Physical Exam
-
Vital Signs:
Vital Signs
Temp Pulse Resp BP Pulse Ox
97.6 F 61 16 113/49 95
06/15/24 07:05 06/15/24 07:05 06/15/24 07:05 06/15/24 07:05 06/15/24 07:05
Cardiovascular:: Regular rate and rhythm
Respiratory:: Bilateral: Coarse
Lung Excursion:: Normal
Abdomen:: Nontender and Soft
Bowel Sounds:: Normal
Extremity Edema:: +1: Bilateral:
--- NOTE | 2024-06-15 10:19 | CM ---
Reviewed the chart notes. CM continues to be available to patient/family and is monitoring medical plan for needs at discharge.
Plan: Discharge to SNF once medically stable, bed secured, and precert obtained. [facility] willing to accept based on bed availability at the time of discharge.
[2024-06-15] MEDS: ANCEF 5 IV (11:37)
[2024-06-15] MEDS: ProAmatine PO (13:18)
--- NOTE | 2024-06-15 13:44 | PN.CDI ---
CDI
- -
CDI:
Physician Documentation Request
Admit Date: 06/09/24 12:43
Dear Doctor Agnes,
Progress notes state 'Acute anemia on anemia of chronic disease (possibly due to renal cause post-op anemia'
06/13 patient received 1 unit of PRBC
Could you further clarify the acute aspect of the patients anemia:
Acute blood loss anemia with anemia of chronic disease
Other
Use of terms such as suspected, likely, concern for, or probable (associated with a specific diagnosis that is being evaluated, monitored, or treated as if it exists) are acceptable and can be coded in the inpatient setting, when documented at the
time of discharge.
Thank you,
Jesenia Jimenez RN, BSN
CDI Specialist
tiger text
Please use your independent medical judgment in providing your response.
[2024-06-15 14:29] LABS: Urine Sodium 11 mmol/L (30-90)
[2024-06-15] MEDS: FLOMAX 0.4 MG PO (17:10)
[2024-06-15] MEDS: LIPITOR 20 MG PO (17:10)
[2024-06-15] MEDS: HEPARIN 5000 UNITS SC (20:15)
[2024-06-15] MEDS: KEFLEX 500 MG PO (20:15)
[2024-06-16] VITALS (8 sets, daily range): BP systolic 95–150; BP diastolic 34–79; PULSE 60; O2SAT 95; BMI 31.8
[2024-06-16 06:53] LABS: Hematocrit 25.3 % (39.0-52.0); Hemoglobin 8.5 g/dL (13.0-18.0); Mean Corp Hgb Conc. 33.6 g/dL (33.0-37.0); Mean Corpuscular Hgb 31.5 pg (27.0-31.0); Mean Corpuscular Volume 93.7 fL (80.0-94.0); Mean Platelet Volume 11.6 fL (7.4-10.4); Platelet Count 148 10^3/uL (130-400); Red Cell Dist. Width 18.2 % (11.5-14.5); White Blood Cell Count 8.8 10^3/uL (4.8-10.8)
[2024-06-16 07:36] LABS: Blood Urea Nitrogen 103 mg/dl (9-20); Calcium 8.4 mg/dl (8.4-10.2); Carbon Dioxide 25 mmol/L (22-30); Chloride 96 mmol/L (98-107); Estimated Creatinine Clearance 21 ml/min; Glucose 121 mg/dl (70-99); Potassium 3.8 mmol/L (3.5-5.1); Sodium 133 mmol/L (135-145); eGFR 19.33
[2024-06-16] MEDS: SYMMETREL 100 MG PO (09:18)
[2024-06-16] MEDS: ProAmatine 10 MG PO ×3 (09:19→17:16)
[2024-06-16] MEDS: KEFLEX 500 MG PO ×2 (09:19→20:25)
[2024-06-16] MEDS: ASPIRIN 325 MG PO (09:19)
[2024-06-16] MEDS: ZYLOPRIM 300 MG PO (09:19)
[2024-06-16] MEDS: PROTONIX 40 MG PO ×2 (09:19→20:25)
[2024-06-16] MEDS: TOPROL XL 75 MG PO (09:20)
[2024-06-16] MEDS: ZOLOFT 50 MG PO (09:20)
[2024-06-16] MEDS: SENOKOT 17.2 MG PO ×2 (09:20→20:25)
[2024-06-16] MEDS: HEPARIN 5000 UNITS SC ×2 (09:20→20:26)
[2024-06-16] MEDS: COLACE 100 MG PO ×2 (09:20→20:25)
[2024-06-16] MEDS: LASIX 80 MG IV ×2 (09:21→15:55)
[2024-06-16] MEDS: DESENEX/MITRAZOL/ZEASORB 1 APPLIC TOPICAL ×2 (09:21→20:27)
[2024-06-16] MEDS: TRIAMCINOLONE ACETONIDE 0.1% CREAM 1 APPLIC TOPICAL ×3 (09:22→21:07)
[2024-06-16] MEDS: VISBIOME PO (09:22)
--- NOTE | 2024-06-16 10:09 | W.PN.NEPH.PH ---
Today's Communication / Plan
-
Diuresis
Assessment/Plan
-
Assessment
Hypotension
Heart failure preserved ejection fraction
[place] = m baseline creatinine 1.6-1.8, admitting creatinine 2.4
Right hip fracture repair
Anemia
Elevated LFTs
Paroxysmal atrial fibrillation
Gout
Plan
Follow BMP
May continue Lasix as is
Guadarrama catheter replaced for urinary retention
Urine sodium low despite intravenous Lasix suggesting avid salt retention may be able to add thiazide to augment diuresis if needed
There may be a possibility of pulmonary embolism though suspicion is low
-
-
Date of Service: June 16, 2024
CC / HPI / ROS
-
Chief Complaint:
Status post fall hip fracture
History of Present Illness:
[place]/creatinine down to 3.1
sodium low 133 stable
potassium stable normal 3.8
BP stable low
Review of Systems:.
No chest pain or shortness of breath. Urinary retention with Guadarrama catheter
Labs
-
Labs:
WBC 8.8 10^3/uL (4.8-10.8) 06/16/24 06:28
RBC 2.70 10^6/uL (4.70-6.10) L 06/16/24 06:28
Hgb 8.5 g/dL (13.0-18.0) L 06/16/24 06:28
Hct 25.3 % (39.0-52.0) L 06/16/24 06:28
Plt Count 148 10^3/uL (130-400) 06/16/24 06:28
Sodium 133 mmol/L (135-145) L 06/16/24 06:28
Potassium 3.8 mmol/L (3.5-5.1) 06/16/24 06:28
Chloride 96 mmol/L (98-107) L 06/16/24 06:28
Carbon Dioxide 25 mmol/L (22-30) 06/16/24 06:28
BUN 103 mg/dl (9-20) H* 06/16/24 06:28
Creatinine 3.1 mg/dL (0.7-1.3) H 06/16/24 06:28
eGFR 19.33 06/16/24 06:28
Glucose 121 mg/dl (70-99) H 06/16/24 06:28
Calcium 8.4 mg/dl (8.4-10.2) 06/16/24 06:28
Rxx-S-Dnwtucfrrqk Pept 38010 pg/ml 06/11/24 06:31
Albumin 2.9 g/dl (3.5-5.0) L 06/12/24 04:27
Physical Exam
-
Vital Signs:
Vital Signs
Temp Pulse Resp BP Pulse Ox
97.5 F 62 18 100/45 94
06/16/24 07:40 06/16/24 09:21 06/16/24 07:40 06/16/24 09:21 06/16/24 07:40
Cardiovascular:: Regular rate and rhythm
Respiratory:: Bilateral: Coarse
Lung Excursion:: Normal
Abdomen:: Nontender and Soft
Bowel Sounds:: Normal
Extremity Edema:: +3: Bilateral:
--- NOTE | 2024-06-16 10:17 | W.PN.HOSP.TC ---
Today's Communication/Plan
-
diuresis
Assessment / Plan
Assessment / Plan
pt is an 83 year old male with hx CKD, HFpEF, paroxysmal afib, gout, essential HTN, BPH who presents to the ER 06/09 with right hip pain post fall, found to have right intertrochanteric proximal femur fracture. Post-op course c/b worsening renal
function, anemia. He has also been treated for LE cellulitis.
Right Hip X-Ray:
IMPRESSION: Acute intertrochanteric fracture right femur.
Abdomen US:
IMPRESSION:
1. Mildly heterogeneous hepatic echotexture, most likely related to cirrhosis as seen on previous CT. No abnormal focal hepatic lesions identified.
2. Simple benign right renal parapelvic cyst.
CXR 06/10/24
IMPRESSION: Unchanged cardiomegaly. No findings highly suspicious for alveolar or interstitial edema. There is probable minimal right effusion. Small amount of left retrocardiac opacity which is most likely atelectatic.
TTE 06/13/24
CONCLUSIONS
Normal left ventricular systolic function. Left ventricular ejection fraction
is 50-55%.
Mild/moderate eccentric mitral regurgitation.
Enlarged right ventricular size. Reduced right ventricular systolic function.
Septal flattening in systole and diastole consistent with RV pressure and
volume overload.
Moderate/severe tricuspid regurgitation. Severely elevated PASP. Estimated
pulmonary artery pressure of 75 mmHg, assuming a right atrial pressure of 15
mmHg.
Compared to 10/30/23: RV function is now mildly reduced. TR has progressed from
mild/moderate to moderate/severe. PASP has increased from 45 mmHg to 75 mmHg.
MR has progressed from mild to mild/moderate.
Other Finding
The IVC is dilated and does not collapse. Interatrial septum is intact with no
evidence of shunting by color flow Doppler. No intracardiac mass or thrombus
formation seen.
acute right intertrochanteric proximal femur fracture
-3/15/25 s/p Right hip intramedullary fixation
-appreciate Orthopedics
-pain control
-PT/OT, eventual SNF
-charleen out in 2 weeks
-outpatient ortho follow up
-asa 325 for DVT PPx
[place] on CKD
-appreciate renal
-s/p IV lasix 40mg given on 06/12
-urine sodium low
-TTE from 06/13 shows dilated IVC
-continue diuresis (see below)
Acute on Chronic HFpEF
-diuretics had been held pre-op; patient received intermittent small bolus for low BP and PRBC on 06/13
-TTE shows dilated IVC
-patient is on Lasix 80mg PO BID at home
-continue Lasix 80mg IV BID
Urinary Retention - s/p marcus catheter placement on 06/13
Bilateral Cellulitis
-started on IV Cefazolin, transitioned to Keflex to complete 7 day course
-LE Doppler without blood clots
acute anemia on anemia of chronic disease (possibly due to renal cause
post-op anemia
-s/p 1 unit PRBC on 06/13
-Hg > 8 this morning, monitor daily
Transaminitis
-resolved
paroxysmal afib-
-CLIPPING MARKER Metoprolol
-not on AC at home
Gout--decrease Allopurinol dosing
Essential HTN
-hold CLIPPING MARKER Hydralazine with low BP
-continue CLIPPING MARKER Metoprolol
BPH--Continue flomax
HLD -Continue Statin tx
DVT prophylaxis� asa 325, start hep subQ while in hospital
code status--FULL CODE
51 minutes spent on patient care
Anticipated Discharge: > 48 hours
Subjective/Interval History
-
Date of Service: June 16, 2024
per PT, patient did a little better today
Objective Data
-
Labs:
Laboratory Results
06/16/24
06:28
WBC 8.8
Hgb 8.5 L
Hct 25.3 L
Plt Count 148
Sodium 133 L
Potassium 3.8
Chloride 96 L
Carbon Dioxide 25
BUN 103 H*
Creatinine 3.1 H
Glucose 121 H
Calcium 8.4
Vital Signs:
Vital Signs
Temp Pulse Resp BP Pulse Ox
97.5 F 62 18 100/45 94
06/16/24 07:40 06/16/24 09:21 06/16/24 07:40 06/16/24 09:21 06/16/24 07:40
I&O
06/15/24 06/16/24 06/17/24
06:59 06:59 06:59
Intake Total 645 / 645 240 / 240 240 / 240
Output Total 1000 / 1000 775 / 775 750 / 750
Balance -355 / -355 -535 / -535 -510 / -510
Review of Systems
-
History Source: Patient
All other systems: Reviewed and negative
Physical Exam
-
General: Appears Chronically Ill
HEENT: Normocephalic and Atraumatic; Negative Oxygen
Respiratory: Clear to Auscultation; Negative Wheezes or Rhonchi
Cardiac: Regular Rhythm, S1/S2 and JVD; Negative Murmur
GI: Soft, Nontender, Nondistended and Normal Bowel Sounds
Musculoskeletal: No Clubbing, No Cyanosis and Other (b/l edema and venous stasis discoloration )
Neuro: Awake and AO x 3
Psych: Calm
Data Reviewed
-
Diagnostic Radiology: Report Reviewed by me
Labs: Labs Reviewed by me
[2024-06-16] MEDS: KCL 10 MEQ PO (10:22)
--- NOTE | 2024-06-16 13:47 | CM ---
Reviewed the chart notes. the patient was a max of assist for mobility per PT notes. CM continues to be available to patient/family and is monitoring medical plan for needs at discharge.
Plan: Discharge to SNF once medically stable, bed secured, and precert obtained. [facility] willing to accept based on bed availability at the time of discharge.
[2024-06-16] MEDS: LIPITOR 20 MG PO (17:14)
[2024-06-16] MEDS: FLOMAX 0.4 MG PO (17:14)
[2024-06-17] VITALS (8 sets, daily range): BP systolic 91–126; BP diastolic 38–63; PULSE 59–60; O2SAT 95; BMI 32.1
[2024-06-17 07:48] LABS: Hematocrit 25.8 % (39.0-52.0); Hemoglobin 8.7 g/dL (13.0-18.0); Mean Corp Hgb Conc. 33.7 g/dL (33.0-37.0); Mean Corpuscular Hgb 31.5 pg (27.0-31.0); Mean Corpuscular Volume 93.5 fL (80.0-94.0); Platelet Count 183 10^3/uL (130-400); Red Blood Cell Count 2.76 10^6/uL (4.70-6.10); Red Cell Dist. Width 18.2 % (11.5-14.5); White Blood Cell Count 9.8 10^3/uL (4.8-10.8)
[2024-06-17] MEDS: SYMMETREL 100 MG PO (08:23)
[2024-06-17] MEDS: HEPARIN 5000 UNITS SC ×2 (08:23→20:29)
[2024-06-17] MEDS: ProAmatine 10 MG PO ×3 (08:24→17:38)
[2024-06-17] MEDS: LASIX 80 MG IV ×2 (08:24→16:24)
[2024-06-17] MEDS: TOPROL XL 75 MG PO (08:25)
[2024-06-17] MEDS: DESENEX/MITRAZOL/ZEASORB 1 APPLIC TOPICAL ×2 (08:25→20:29)
[2024-06-17] MEDS: PROTONIX 40 MG PO ×2 (08:25→20:29)
[2024-06-17] MEDS: SENOKOT 17.2 MG PO ×2 (08:25→20:29)
[2024-06-17] MEDS: COLACE 100 MG PO ×2 (08:25→20:29)
[2024-06-17] MEDS: ASPIRIN 325 MG PO (08:25)
[2024-06-17] MEDS: KEFLEX 500 MG PO ×2 (08:25→20:29)
[2024-06-17] MEDS: ZYLOPRIM 100 MG PO (08:25)
[2024-06-17] MEDS: ZOLOFT 50 MG PO (08:25)
[2024-06-17] MEDS: VISBIOME PO (08:26)
[2024-06-17] MEDS: TRIAMCINOLONE ACETONIDE 0.1% CREAM 1 APPLIC TOPICAL ×3 (08:26→20:30)
[2024-06-17 08:27] LABS: Blood Urea Nitrogen 100 mg/dl (9-20); Calcium 8.5 mg/dl (8.4-10.2); Carbon Dioxide 23 mmol/L (22-30); Chloride 98 mmol/L (98-107); Estimated Creatinine Clearance 24 ml/min; Glucose 125 mg/dl (70-99); Magnesium 2.1 mg/dl (1.6-2.3); Sodium 134 mmol/L (135-145); eGFR 22.82
--- NOTE | 2024-06-17 09:30 | W.PN.HOSP.TC ---
Addendum entered and electronically signed by Christa Alarcon MD 06/17/24 13:15:
code status discussed with daughter and decision made for DNR
Original Note:
Today's Communication/Plan
-
diuresis
PT/OT, eventual SNF (earliest likely Thursday)
continue midodrine
hold Hydralazine
appreciate Renal
Assessment / Plan
Assessment / Plan
pt is an 83 year old male with hx CKD, HFpEF, paroxysmal afib, gout, essential HTN, BPH who presents to the ER 06/09 with right hip pain post fall, found to have right intertrochanteric proximal femur fracture. Post-op course c/b worsening renal
function, anemia. He has also been treated for LE cellulitis.
Right Hip X-Ray:
IMPRESSION: Acute intertrochanteric fracture right femur.
Abdomen US:
IMPRESSION:
1. Mildly heterogeneous hepatic echotexture, most likely related to cirrhosis as seen on previous CT. No abnormal focal hepatic lesions identified.
2. Simple benign right renal parapelvic cyst.
CXR 06/10/24
IMPRESSION: Unchanged cardiomegaly. No findings highly suspicious for alveolar or interstitial edema. There is probable minimal right effusion. Small amount of left retrocardiac opacity which is most likely atelectatic.
TTE 06/13/24
CONCLUSIONS
Normal left ventricular systolic function. Left ventricular ejection fraction
is 50-55%.
Mild/moderate eccentric mitral regurgitation.
Enlarged right ventricular size. Reduced right ventricular systolic function.
Septal flattening in systole and diastole consistent with RV pressure and
volume overload.
Moderate/severe tricuspid regurgitation. Severely elevated PASP. Estimated
pulmonary artery pressure of 75 mmHg, assuming a right atrial pressure of 15
mmHg.
Compared to 10/30/23: RV function is now mildly reduced. TR has progressed from
mild/moderate to moderate/severe. PASP has increased from 45 mmHg to 75 mmHg.
MR has progressed from mild to mild/moderate.
Other Finding
The IVC is dilated and does not collapse. Interatrial septum is intact with no
evidence of shunting by color flow Doppler. No intracardiac mass or thrombus
formation seen.
acute right intertrochanteric proximal femur fracture
-06/11/24 s/p Right hip intramedullary fixation
-appreciate Orthopedics
-pain control
-PT/OT, eventual SNF
-charleen out in 2 weeks
-outpatient ortho follow up
-asa 325 for DVT PPx (hep subQ while in hospital)
[place] on CKD
-appreciate renal
-s/p IV lasix 40mg given on 06/12
-urine sodium low
-TTE from 06/13 shows dilated IVC
-continue diuresis (see below) - renal function improving with diuresis
Hospital Acquired Delirium
-waxing and waning mentation
-elevated BUN may be contributing - improving today
Acute on Chronic HFpEF
-diuretics had been held pre-op; patient received intermittent small bolus for low BP and PRBC on 06/13
-TTE shows dilated IVC
-patient is on Lasix 80mg PO BID at home
-continue Lasix 80mg IV BID - patient with good response
Urinary Retention - s/p marcus catheter placement on 06/13
Bilateral Cellulitis
-started on IV Cefazolin, transitioned to Keflex to complete 7 day course
-LE Doppler without blood clots
acute anemia on anemia of chronic disease (possibly due to renal cause
post-op anemia
-s/p 1 unit PRBC on 06/13
-Hg > 8 this morning, monitor daily
Transaminitis
-resolved
paroxysmal afib-
-CERTIFIED ORTHOPTIST Metoprolol
-not on AC at home
Gout--decrease Allopurinol dosing
Essential HTN
-hold CERTIFIED ORTHOPTIST Hydralazine with low BP
-continue CERTIFIED ORTHOPTIST Metoprolol
BPH--Continue flomax
HLD -Continue Statin tx
DVT prophylaxis� asa 325, start hep subQ while in hospital
code status--FULL CODE
51 minutes spent on patient care
Anticipated Discharge: > 48 hours
Subjective/Interval History
-
Date of Service: June 17, 2024
intermittent confusion per RN report
patient denies pain
Objective Data
-
Labs:
Laboratory Results
06/17/24
07:01
WBC 9.8
Hgb 8.7 L
Hct 25.8 L
Plt Count 183 D
Sodium 134 L
Potassium 4.0
Chloride 98
Carbon Dioxide 23
BUN 100 H
Creatinine 2.7 H
Glucose 125 H
Calcium 8.5
Vital Signs:
Vital Signs
Temp Pulse Resp BP Pulse Ox
97.6 F 61 16 106/43 96
06/17/24 07:48 06/17/24 08:25 06/17/24 07:48 06/17/24 08:25 06/17/24 07:48
I&O
06/16/24 06/17/24 06/18/24
06:59 06:59 06:59
Intake Total 240 / 240 680 / 680
Output Total 775 / 775 2500 / 2500
Balance -535 / -535 -1820 / -1820
Review of Systems
-
History Source: Patient
All other systems: Reviewed and negative
Physical Exam
-
General: Appears Chronically Ill
HEENT: Normocephalic and Atraumatic; Negative Oxygen
Respiratory: Clear to Auscultation; Negative Wheezes or Rhonchi
Cardiac: Regular Rhythm, S1/S2 and JVD; Negative Murmur
GI: Soft, Nontender, Nondistended and Normal Bowel Sounds
Musculoskeletal: No Clubbing, No Cyanosis and Other (b/l edema and venous stasis discoloration )
Neuro: Awake and AO x 3
Psych: Calm
Data Reviewed
-
Diagnostic Radiology: Report Reviewed by me
Labs: Labs Reviewed by me
--- NOTE | 2024-06-17 14:09 | W.PN.NEPH.PH ---
Today's Communication / Plan
-
Continue diuretics
Assessment/Plan
-
Assessment
Hypotension
Heart failure preserved ejection fraction
[place] = m baseline creatinine 1.6-1.8, admitting creatinine 2.4
Right hip fracture repair
Anemia
Elevated LFTs
Paroxysmal atrial fibrillation
Gout
Plan
Follow BMP
May continue Lasix as is
Guadarrama catheter replaced for urinary retention
He is now responding to IV diuretic.
Fortunately he is having worsening mental status he is delirious and hallucinating.
I suspect this is secondary to uremia despite improvement in his creatinine though BUN remains at 100.
Discussed this with the primary hospitalist and medical nurse will continue to monitor.
No acute need for dialysis but if we do not have much improvement from a azotemia standpoint dialysis would be indicated and we would have a discussion with his daughter about goals of care
-
-
Date of Service: June 17, 2024
CC / HPI / ROS
-
Chief Complaint:
Status post fall hip fracture
History of Present Illness:
[place]/creatinine down to 3.1
sodium low 133 stable
potassium stable normal 3.8
BP stable low
Review of Systems:.
No chest pain or shortness of breath. Urinary retention with Guadarrama catheter
Labs
-
Labs:
WBC 9.8 10^3/uL (4.8-10.8) 06/17/24 07:01
RBC 2.76 10^6/uL (4.70-6.10) L 06/17/24 07:01
Hgb 8.7 g/dL (13.0-18.0) L 06/17/24 07:01
Hct 25.8 % (39.0-52.0) L 06/17/24 07:01
Plt Count 183 10^3/uL (130-400) D 06/17/24 07:01
Sodium 134 mmol/L (135-145) L 06/17/24 07:01
Potassium 4.0 mmol/L (3.5-5.1) 06/17/24 07:01
Chloride 98 mmol/L (98-107) 06/17/24 07:01
Carbon Dioxide 23 mmol/L (22-30) 06/17/24 07:01
BUN 100 mg/dl (9-20) H 06/17/24 07:01
Creatinine 2.7 mg/dL (0.7-1.3) H 06/17/24 07:01
eGFR 22.82 06/17/24 07:01
Glucose 125 mg/dl (70-99) H 06/17/24 07:01
Calcium 8.5 mg/dl (8.4-10.2) 06/17/24 07:01
Tnz-U-Gzifupdbaxu Pept 83908 pg/ml 06/11/24 06:31
Albumin 2.9 g/dl (3.5-5.0) L 06/12/24 04:27
Physical Exam
-
Vital Signs:
Vital Signs
Temp Pulse Resp BP Pulse Ox
97.4 F 61 16 105/47 96
06/17/24 11:10 06/17/24 13:29 06/17/24 11:10 06/17/24 13:29 06/17/24 11:10
--- NOTE | 2024-06-17 14:53 | CM ---
Chart reviewed
Diuresing
Accepted at [facility] pending bed availability. Will require auth
Plan - SNF when medically stable and bed/auth obtained
--- NOTE | 2024-06-17 15:07 | PTCARENOTE ---
Update: pt has become increasingly confused and forgetful with some visual hallucinations starting 06/16 into 06/17. MD Alarcon made aware. Daughter aware of pts confusion starting yesterday, visited today and reports confusion continues. no new
orders at this time. plan of care continues to be followed. Pt resuscitation status changed to DNR.
[2024-06-17] MEDS: LIPITOR 20 MG PO (17:38)
[2024-06-17] MEDS: FLOMAX 0.4 MG PO (17:38)
[2024-06-18 06:00] VITALS: BMI 32.6
[2024-06-18 08:00] VITALS: BP 107/47
--- NOTE | 2024-06-18 08:46 | W.PN.HOSP.TC ---
Addendum entered and electronically signed by Christa Alarcon MD 06/18/24 12:22:
Abilify ordered, discussed briefly with Psychiatry
Original Note:
Today's Communication/Plan
-
diuresis
awaiting AM labs
patient with worsening delirium; can trial Abilify given low effect on QTc
Assessment / Plan
Assessment / Plan
pt is an 83 year old male with hx CKD, HFpEF, paroxysmal afib, gout, essential HTN, BPH who presents to the ER 06/09 with right hip pain post fall, found to have right intertrochanteric proximal femur fracture. Post-op course c/b worsening renal
function, anemia. He has also been treated for LE cellulitis.
Right Hip X-Ray:
IMPRESSION: Acute intertrochanteric fracture right femur.
Abdomen US:
IMPRESSION:
1. Mildly heterogeneous hepatic echotexture, most likely related to cirrhosis as seen on previous CT. No abnormal focal hepatic lesions identified.
2. Simple benign right renal parapelvic cyst.
CXR 06/10/24
IMPRESSION: Unchanged cardiomegaly. No findings highly suspicious for alveolar or interstitial edema. There is probable minimal right effusion. Small amount of left retrocardiac opacity which is most likely atelectatic.
TTE 06/13/24
CONCLUSIONS
Normal left ventricular systolic function. Left ventricular ejection fraction
is 50-55%.
Mild/moderate eccentric mitral regurgitation.
Enlarged right ventricular size. Reduced right ventricular systolic function.
Septal flattening in systole and diastole consistent with RV pressure and
volume overload.
Moderate/severe tricuspid regurgitation. Severely elevated PASP. Estimated
pulmonary artery pressure of 75 mmHg, assuming a right atrial pressure of 15
mmHg.
Compared to 10/30/23: RV function is now mildly reduced. TR has progressed from
mild/moderate to moderate/severe. PASP has increased from 45 mmHg to 75 mmHg.
MR has progressed from mild to mild/moderate.
Other Finding
The IVC is dilated and does not collapse. Interatrial septum is intact with no
evidence of shunting by color flow Doppler. No intracardiac mass or thrombus
formation seen.
acute right intertrochanteric proximal femur fracture
-06/11/24 s/p Right hip intramedullary fixation
-appreciate Orthopedics
-pain control
-PT/OT, eventual SNF
-charleen out in 2 weeks
-outpatient ortho follow up
-asa 325 for DVT PPx (hep subQ while in hospital)
[place] on CKD
-appreciate renal
-s/p IV lasix 40mg given on 06/12
-urine sodium low
-TTE from 06/13 shows dilated IVC
-continue diuresis (see below) - renal function improving with diuresis
Hospital Acquired Delirium
-waxing and waning mentation
-elevated BUN may be contributing - improving today
-06/18 - awaiting on AM labs, patient with increasing confusion
-he has prolonged qtc; can trial abilify which does not have significant effect on qtc if needd
Acute on Chronic HFpEF
-diuretics had been held pre-op; patient received intermittent small bolus for low BP and PRBC on 06/13
-TTE shows dilated IVC
-patient is on Lasix 80mg PO BID at home
-continue Lasix 80mg IV BID - patient with good response
Urinary Retention - s/p marcus catheter placement on 06/13
Bilateral Cellulitis
-started on IV Cefazolin, transitioned to Keflex to complete 7 day course
-LE Doppler without blood clots
acute anemia on anemia of chronic disease (possibly due to renal cause
post-op anemia
-s/p 1 unit PRBC on 06/13
-Hg > 8 this morning, monitor daily
Transaminitis
-resolved
paroxysmal afib-
-IDEA WORKER Metoprolol
-not on AC at home
Gout--decrease Allopurinol dosing
Essential HTN
-hold IDEA WORKER Hydralazine with low BP
-continue IDEA WORKER Metoprolol
BPH--Continue flomax
HLD -Continue Statin tx
DVT prophylaxis� asa 325, start hep subQ while in hospital
code status-- DNR - GOC discussion with daughter on 06/17
51 minutes spent on patient care
Anticipated Discharge: 24 - 48 hours
Subjective/Interval History
-
Date of Service: June 18, 2024
confused this morning
per RN he was directable overnight, got some sleep
Objective Data
-
Labs:
Laboratory Results
06/18/24
07:03
Sodium Pending
Potassium Pending
Chloride Pending
Carbon Dioxide Pending
BUN Pending
Creatinine Pending
Glucose Pending
Calcium Pending
Vital Signs:
Vital Signs
Temp Pulse Resp BP Pulse Ox
97.4 F 61 16 107/47 95
06/18/24 08:00 06/18/24 08:00 06/18/24 08:00 06/18/24 08:00 06/18/24 08:00
I&O
06/17/24 06/18/24 06/19/24
06:59 06:59 06:59
Intake Total 680 / 680 990 / 990
Output Total 2500 / 2500 1450 / 1450
Balance -1820 / -1820 -460 / -460
Review of Systems
-
Unable to obtain full review of systems at this time due to: Other (patient confused)
History Source: Patient
Physical Exam
-
General: Appears Chronically Ill
HEENT: Normocephalic and Atraumatic; Negative Oxygen
Respiratory: Clear to Auscultation; Negative Wheezes or Rhonchi
Cardiac: Regular Rhythm, S1/S2 and JVD; Negative Murmur
GI: Soft, Nontender, Nondistended and Normal Bowel Sounds
Musculoskeletal: No Clubbing, No Cyanosis and Other (b/l edema and venous stasis discoloration )
Neuro: Awake; Negative Oriented (more confused this morning)
Psych: Calm
Data Reviewed
-
Diagnostic Radiology: Report Reviewed by me
Labs: Labs Reviewed by me
[2024-06-18] MEDS: ROXICODONE 5 MG PO (09:26)
[2024-06-18] MEDS: COLACE 100 MG PO (09:28)
[2024-06-18] MEDS: SYMMETREL 100 MG PO (09:28)
[2024-06-18] MEDS: ZYLOPRIM 100 MG PO (09:28)
[2024-06-18] MEDS: VISBIOME 1 CAP PO (09:28)
[2024-06-18] MEDS: SENOKOT 17.2 MG PO (09:28)
[2024-06-18] MEDS: ASPIRIN 325 MG PO (09:28)
[2024-06-18] MEDS: ProAmatine 10 MG PO ×2 (09:28→13:25)
[2024-06-18] MEDS: PROTONIX 40 MG PO (09:28)
[2024-06-18] MEDS: ZOLOFT 50 MG PO (09:29)
[2024-06-18] MEDS: HEPARIN 5000 UNITS SC (09:29)
[2024-06-18] MEDS: DESENEX/MITRAZOL/ZEASORB 1 APPLIC TOPICAL ×2 (09:29→20:15)
[2024-06-18] MEDS: LASIX 80 MG IV ×2 (09:29→17:23)
[2024-06-18 09:30] LABS: Blood Urea Nitrogen 97 mg/dl (9-20); Calcium 8.9 mg/dl (8.4-10.2); Carbon Dioxide 22 mmol/L (22-30); Chloride 99 mmol/L (98-107); Estimated Creatinine Clearance 27 ml/min; Glucose 122 mg/dl (70-99); Sodium 135 mmol/L (135-145); eGFR 26.28
[2024-06-18] MEDS: TRIAMCINOLONE ACETONIDE 0.1% CREAM 1 APPLIC TOPICAL ×2 (09:30→17:22)
[2024-06-18 11:10] VITALS: BP 127/53
[2024-06-18] MEDS: DULCOLAX 10 MG RECTAL (11:13)
--- NOTE | 2024-06-18 11:30 | PTCARENOTE ---
Patient moaning and calling out. Patient AAOx2,more agitated,restless and reaching for things that are not there. Lungs sound worse with rhonchi, wheeze, harsh PC for thick yellow sputum, RR 22, RA 92%. Physician made aware.
--- NOTE | 2024-06-18 11:35 | W.PN.NEPH.PH ---
Today's Communication / Plan
-
Continue diuretic
Chest x-ray
Suggest dialysis versus hospice
Assessment/Plan
-
Assessment
Hypotension
Heart failure preserved ejection fraction
[place] = m baseline creatinine 1.6-1.8, admitting creatinine 2.4
Right hip fracture repair
Anemia
Elevated LFTs
Paroxysmal atrial fibrillation
Gout
Plan
Follow BMP
May continue Lasix as is
Guadarrama catheter replaced for urinary retention
He is now responding to IV diuretic.
Fortunately he is having worsening mental status he is delirious and hallucinating.
I suspect this is secondary to uremia despite improvement in his creatinine though BUN remains at 100.
Having some labored breathing as well.
Despite decreasing creatinine and urine output I suspect this is more of delusional improvement in creatinine overall positive to even since admission.
Discussed with the primary nurse and will discuss with hospital medicine as to goals of care. Short of dialysis I suggest hospice
-
-
Date of Service: June 18, 2024
CC / HPI / ROS
-
Chief Complaint:
Status post fall hip fracture
History of Present Illness:
[place]/creatinine down but still with azotemia
Review of Systems:.
Uremic/labored breathing no chest pain
Labs
-
Labs:
WBC 9.8 10^3/uL (4.8-10.8) 06/17/24 07:01
RBC 2.76 10^6/uL (4.70-6.10) L 06/17/24 07:01
Hgb 8.7 g/dL (13.0-18.0) L 06/17/24 07:01
Hct 25.8 % (39.0-52.0) L 06/17/24 07:01
Plt Count 183 10^3/uL (130-400) D 06/17/24 07:01
Sodium 135 mmol/L (135-145) 06/18/24 07:03
Potassium 4.0 mmol/L (3.5-5.1) 06/18/24 07:03
Chloride 99 mmol/L (98-107) 06/18/24 07:03
Carbon Dioxide 22 mmol/L (22-30) 06/18/24 07:03
BUN 97 mg/dl (9-20) H 06/18/24 07:03
Creatinine 2.4 mg/dL (0.7-1.3) H 06/18/24 07:03
eGFR 26.28 06/18/24 07:03
Glucose 122 mg/dl (70-99) H 06/18/24 07:03
Calcium 8.9 mg/dl (8.4-10.2) 06/18/24 07:03
Wdf-M-Kbxdssoimgu Pept 64042 pg/ml 06/11/24 06:31
Albumin 2.9 g/dl (3.5-5.0) L 06/12/24 04:27
Physical Exam
-
Vital Signs:
Vital Signs
Temp Pulse Resp BP Pulse Ox
97.4 F 61 16 107/47 95
06/18/24 08:00 06/18/24 08:00 06/18/24 08:00 06/18/24 08:00 06/18/24 08:00
Respiratory:: Bilateral: Rales and Bilateral: Rhonchi
Lung Excursion:: Abnormal
Abdomen:: Soft
Bowel Sounds:: Normal
Extremity Edema:: +1: Bilateral:
Guadarrama Catheter: Yes
[2024-06-18] MEDS: TOPROL XL PO (12:18)
--- NOTE | 2024-06-18 12:57 | PTOTSP ---
SPEECH THERAPY SWALLOW FOLLOW UP NOTE:
Patient exhibits clinical signs of oropharyngeal dysphagia, likely chronic related to Parkinson's Disease and acutely exacerbated by complicated medical status including Right hip fracture s/p surgery with post-op worsening renal function, anemia,
LE cellulitis, hospital-acquired delirium. Patient now with CXR concerning for pneumonia, exhibiting worsening respiratory status. Increased confusion/agitation. Patient remains at high risk for aspiration and related complications at this time.
Recommend temporary NPO except necessary medications crushed in puree. ST to re-assess in 24 hours, determine readiness for additional p.o. trials and/or oral diet, determine readiness for instrumental assessment of swallowing as appropriate (not
appropriate at this time given cognitive status/agitation), and provide continued diagnostic swallow therapy as appropriate.
RECOMMEND:
1) temporary NPO
2) only necessary medications crushed in puree
3) consider non-oral nutrition/hydration
4) ST to follow, re-assess in 24 hours
5) Oral care 4x/day
[2024-06-18] MEDS: ABILIFY 2 MG PO (13:14)
[2024-06-18] MEDS: LASIX 16 MG IV (13:15)
--- NOTE | 2024-06-18 13:35 | W.PN.UPDATE ---
Addendum entered and electronically signed by Christa Alarcon MD 06/18/24 18:42:
Discussed plan with Dr. Pastrana, as a temporizing measure to ensure AICD doesn't fire overnight will place magnet over device (magnets are in code carts).
Will then figure out plan tomorrow to shut off AICD more permanently.
Original Note:
Update Note
Progress Note Update
GOC discussion had with patient's daughter, Jojo Solis. He would definitely not want HD, relayed to Ticket Worker. We will continue treatment for 24-48 hours and assess patient, if no clinical improvement then will discuss comfort care.
Given possible aspiration pneumonia, will start IV Zosyn.
Continue diuresis
Continue Abilify for delirium
Jojo is OK with low dose Dilaudid to help with SOB
AICD to be turned off on Thursday, discussed with Dr. Pastrana.
[2024-06-18] MEDS: ZOSYN 50 IV (14:23)
--- NOTE | 2024-06-18 15:00 | PTCARENOTE ---
Patient agitated, calling out, pulling at marcus (stat lock placed), and pushing self to end of bed. Patient states, 'Lift me up so I can breathe. I can't breathe.' Patient incontinent of large BM. Patient repositioned, washed, suctioned for thick
yellow sputum, mouth care provided, RR 28, RA 91-92%.Son at bedside. Dilaudid given for dyspnea at 1500.
[2024-06-18] MEDS: DILAUDID 0.25 MG IV (15:01)
[2024-06-18 15:38] VITALS: BP 105/52
--- NOTE | 2024-06-18 16:34 | PTCARENOTE ---
Patient sitting up in bed, resting comfortably. No s/s of discomfort. RR 22.
[2024-06-18] MEDS: ProAmatine PO (17:30)
[2024-06-18] MEDS: FLOMAX PO (17:30)
[2024-06-18] MEDS: LIPITOR PO (17:30)
--- NOTE | 2024-06-18 18:09 | W.PN.UPDATE ---
Update Note
Progress Note Update
I just had further discussions with patient's daughter. She discussed more with patient's son and given significant decline, would like to change to comfort measures this evening. We discussed stopping labs, lasix, and treating pain and shortness
of breath with liberal Dilaudid. I have reached out to Cardiology about turning off AICD.
[2024-06-18] MEDS: COLACE PO (19:29)
[2024-06-18] MEDS: MORPHINE SULFATE 2 MG IV (20:15)
[2024-06-18] MEDS: ROBINUL 0.2 MG IV (20:15)
[2024-06-18] MEDS: TRIAMCINOLONE ACETONIDE 0.1% CREAM TOPICAL (21:31)
[2024-06-18 23:30] VITALS: BP 117/85
[2024-06-19] MEDS: MORPHINE SULFATE 2 MG IV ×5 (01:29→15:20)
[2024-06-19] MEDS: ROBINUL 0.2 MG IV (01:30)
[2024-06-19 07:10] LABS: Hematocrit 24.8 % (39.0-52.0); Hemoglobin 8.6 g/dL (13.0-18.0); Mean Corp Hgb Conc. 34.7 g/dL (33.0-37.0); Mean Corpuscular Hgb 31.5 pg (27.0-31.0); Mean Corpuscular Volume 90.8 fL (80.0-94.0); Mean Platelet Volume 11.5 fL (7.4-10.4); Platelet Count 166 10^3/uL (130-400); Red Blood Cell Count 2.73 10^6/uL (4.70-6.10); Red Cell Dist. Width 17.8 % (11.5-14.5); White Blood Cell Count 7.8 10^3/uL (4.8-10.8)
[2024-06-19 07:24] VITALS: BP 106/75
--- NOTE | 2024-06-19 08:07 | W.PN.HOSP.TC ---
Today's Communication/Plan
-
comfort care
Assessment / Plan
Assessment / Plan
Mr. René Abarca is a 83 year old male with hx CKD, HFpEF, paroxysmal afib, gout, essential HTN, BPH who presents to the ER 06/09 with right hip pain post fall, found to have right intertrochanteric proximal femur fracture. Post-op course c/b
worsening renal function, anemia. He has also been treated for LE cellulitis. With increasing delirium in setting of kidney failure, uremia, shortness of breath; decision made to pursue comfort care on 06/18/24.
acute right intertrochanteric proximal femur fracture
-06/11/24 s/p Right hip intramedullary fixation
-appreciate Orthopedics
-patient is now comfort care (see below)
Acute Renal Failure
Acute on Chronic HFpEF
chronic kidney disease
Uremia
TME 2/2 Above
-s/p diuresis with improved urine output and creatinine but progressive delirium/confusion and shortness of breath
-multiple GOC discussions had with family and decision made for comfort care
-comfort care orders in
-morphine PRN with progression to gtt if indicated
-hospice consult in place
Hx AICD
-magnet on top to prevent firing during passing; cardiology aware
Urinary Retention - s/p marcus catheter placement on 06/13
Bilateral Cellulitis
-s/p treatment with antibiotics
acute anemia on anemia of chronic disease (possibly due to renal cause
post-op anemia
-s/p 1 unit PRBC on 06/13
-no further lab checks
Paroxysmal afib-
-SALES COORDINATOR Metoprolol
Gout--decrease Allopurinol dosing
Essential HTN
BPH
HLD
DNR
Anticipated Discharge: 24 - 48 hours
Subjective/Interval History
-
Date of Service: June 19, 2024
resting comfortably
required a couple of dosing of morphine overnight
he states he is thirsty
denies pain
Objective Data
-
Labs:
Laboratory Results
06/19/24
06:16
WBC 7.8
Hgb 8.6 L
Hct 24.8 L
Plt Count 166
Sodium Pending
Potassium Pending
Chloride Pending
Carbon Dioxide Pending
BUN Pending
Creatinine Pending
Glucose Pending
Calcium Pending
Vital Signs:
Vital Signs
Temp Pulse Resp BP Pulse Ox
98.4 F 91 18 117/85 88
06/18/24 23:30 06/18/24 23:30 06/18/24 23:30 06/18/24 23:30 06/18/24 23:30
I&O
06/18/24 06/19/24 06/20/24
06:59 06:59 06:59
Intake Total 990 / 990 0 / 0
Output Total 1450 / 1450 1550 / 1550
Balance -460 / -460 -1550 / -1550
Review of Systems
-
History Source: Patient
All other systems: Reviewed and negative
Physical Exam
-
General: Appears Chronically Ill
HEENT: Normocephalic and Atraumatic; Negative Oxygen
Respiratory: Clear to Auscultation; Negative Wheezes or Rhonchi
Cardiac: Regular Rhythm, S1/S2 and JVD; Negative Murmur
GI: Soft, Nontender, Nondistended and Normal Bowel Sounds
Musculoskeletal: No Clubbing, No Cyanosis and Other (b/l edema and venous stasis discoloration )
Neuro: Awake; Negative Oriented (more confused this morning)
Psych: Calm
Data Reviewed
-
Diagnostic Radiology: Report Reviewed by me
Labs: Labs Reviewed by me
[2024-06-19] MEDS: COLACE PO ×2 (09:19→20:11)
[2024-06-19] MEDS: TOPROL XL 25 MG PO (09:21)
[2024-06-19] MEDS: TOPROL XL 50 MG PO (09:21)
[2024-06-19] MEDS: ZOLOFT 50 MG PO (09:24)
[2024-06-19] MEDS: TRIAMCINOLONE ACETONIDE 0.1% CREAM TOPICAL ×2 (09:24→21:13)
[2024-06-19] MEDS: DESENEX/MITRAZOL/ZEASORB 1 APPLIC TOPICAL ×2 (09:25→20:11)
--- NOTE | 2024-06-19 09:44 | CM ---
Addendum entered by Rosibel Moraes 06/19/24 13:05:
Seen by Hospice
Remains comfort care - hospice to evaluate tomorrow
Family at bedside
Plan - comfort care
Original Note:
CM consult for hospice
Pt on comfort care
Spoke with pts daughter - discussed hospice preference - requesting [facility]
TT sent to cigar maker cannon pinion adjuster. Referral sent in [facility]
Plan - anticipate hospice care
[2024-06-19] MEDS: TOPROL XL PO (09:54)
--- NOTE | 2024-06-19 11:11 | HOSPNOTE ---
Spoke with the patients daughter Barbara. Explained the Hospice philosophy and role in management of symptoms. Patient does not meet criteria for GIP at this time. Will reassess on 06/20/24. He remains on comfort at this time.
--- NOTE | 2024-06-19 13:15 | PTCARENOTE ---
Patient with frequent restless jerky movement that startle patient causing him to moan. Morphine given at 1321 with no relief. Patient dyspneic RR24. Patient restless with frequent jerky movements, Morphine given at 1418. Family at bedside and
concerned about patient's restlessness. Patient's daughter states, 'I just want him to be comfortable.'
[2024-06-19] MEDS: MORPHINE 100 IV (15:36)
--- NOTE | 2024-06-19 15:40 | PTCARENOTE ---
Patient restless and dyspneic requiring morphine x3 in 3 hours. Morphine drip initiated at 1540. Family made aware and are in agreement with plan of care.
--- NOTE | 2024-06-19 15:45 | W.PN.UPDATE ---
Update Note
Progress Note Update
Patient on comfort care will sign off
[2024-06-19] MEDS: TRIAMCINOLONE ACETONIDE 0.1% CREAM 1 APPLIC TOPICAL (18:11)
[2024-06-19] MEDS: FLOMAX PO (18:11)
[2024-06-19] MEDS: ATIVAN 1 MG IV (20:27)
[2024-06-20] MEDS: MORPHINE SULFATE 2 MG IV (04:58)
--- NOTE | 2024-06-20 06:39 | PTCARENOTE ---
End of life protocol in place, pt comfort maintained t/o the night. No distress noted. Breaths non labored. Morphine gtt remains at 1mg/hr at Step one. Pt arousable to voice and tactile stimulation. Some facial grimacing, body tensing, rigidity, and
moaning noted with repositioning. Pt medicated per protocol. Right hip dressing reinforced for drainage. No other changes in assessment noted at this time. Will monitor.
--- NOTE | 2024-06-20 07:54 | W.CAR.ICD ---
ICD Inactivation Request
-
Radio Communications Superintendent Notified: [employer]
The above vendor has been contacted to inactivate the patient's Implantable Cardioverter Defibrillator.
[2024-06-20 07:55] VITALS: BP 113/51
--- NOTE | 2024-06-20 08:24 | W.PN.HOSP.TC ---
Today's Communication/Plan
-
comfort care
Assessment / Plan
Assessment / Plan
Mr. René Abarca is a 83 year old male with hx CKD, HFpEF, paroxysmal afib, gout, essential HTN, BPH who presents to the ER 06/09 with right hip pain post fall, found to have right intertrochanteric proximal femur fracture. Post-op course c/b
worsening renal function, anemia. He has also been treated for LE cellulitis. With increasing delirium in setting of kidney failure, uremia, shortness of breath; decision made to pursue comfort care on 06/18/24.
acute right intertrochanteric proximal femur fracture
-06/11/24 s/p Right hip intramedullary fixation
-appreciate Orthopedics
-patient is now comfort care (see below)
Acute Renal Failure
Acute on Chronic HFpEF
chronic kidney disease
Uremia
TME 2/2 Above
-s/p diuresis with improved urine output and creatinine but progressive delirium/confusion and shortness of breath
-multiple GOC discussions had with family and decision made for comfort care
-comfort care orders in
-morphine gtt
-IV ativan PRN
-hospice consult in place
Hx AICD
-magnet on top to prevent firing during passing; cardiology aware and rep has been consulted to shut off AICD
Urinary Retention - s/p marcus catheter placement on 06/13
Bilateral Cellulitis
-s/p treatment with antibiotics
acute anemia on anemia of chronic disease (possibly due to renal cause
post-op anemia
-s/p 1 unit PRBC on 06/13
-no further lab checks
Paroxysmal afib-
-[employer] Metoprolol
Gout--decrease Allopurinol dosing
Essential HTN
BPH
HLD
DNR
Anticipated Discharge: 24 - 48 hours
Subjective/Interval History
-
Date of Service: June 20, 2024
required initiation of morphine gtt overnight
intermittent twitching
seen with daughter at bedside
Objective Data
-
Vital Signs:
Vital Signs
Temp Pulse Resp BP Pulse Ox
98.4 F 67 19 106/75 92
06/18/24 23:30 06/19/24 07:24 06/19/24 07:24 06/19/24 07:24 06/19/24 21:14
I&O
06/19/24 06/20/24 06/21/24
06:59 06:59 06:59
Intake Total 0 / 0 612 / 612
Output Total 1550 / 1550 1100 / 1100
Balance -1550 / -1550 -488 / -488
Review of Systems
-
History Source: Patient
Physical Exam
-
General: Appears Chronically Ill
HEENT: Normocephalic and Atraumatic; Negative Oxygen
Respiratory: Clear to Auscultation; Negative Wheezes or Rhonchi
Cardiac: Regular Rhythm, S1/S2 and JVD; Negative Murmur
GI: Soft, Nontender, Nondistended and Normal Bowel Sounds
Musculoskeletal: No Clubbing, No Cyanosis and Other (b/l edema and venous stasis discoloration )
Neuro: Awake
Psych: Calm
Data Reviewed
-
Diagnostic Radiology: Report Reviewed by me
Labs: Labs Reviewed by me
[2024-06-20] MEDS: ATIVAN 1 MG IV (09:01)
[2024-06-20] MEDS: NSS (PRESERVATIVE FREE) 0.5 ML IV (09:02)
--- NOTE | 2024-06-20 09:12 | HOSPNOTE ---
Spoke with daughter and Attending the patient will be admitted inpatient hospice today. Admissions was called and presently there are no beds on [facility]. CM updated.
[2024-06-20] MEDS: TOPROL XL PO ×2 (09:18)
[2024-06-20] MEDS: DESENEX/MITRAZOL/ZEASORB TOPICAL (09:18)
[2024-06-20] MEDS: COLACE PO (09:18)
[2024-06-20] MEDS: TRIAMCINOLONE ACETONIDE 0.1% CREAM TOPICAL (09:19)
[2024-06-20] MEDS: ZOLOFT PO (09:19)
--- NOTE | 2024-06-20 09:45 | W.DCSUMMARY ---
Discharge Summary
Discharge Data
Date of Admission: 06/09/24
Date of Discharge: 06/20/24
-
Pending Results: No
Hospital Course
Discharging Physician : Dr. Christa Alarcon
Disposition : Inpatient Hospice
Principal Discharge diagnosis : right intertrochanteric proximal femur fracture; Acute on Chronic Renal Failure
Hospital Course :
Mr. René Abarca is a 83 year old male with hx CKD, HFpEF, paroxysmal afib, gout, essential HTN, BPH who presents to the ER 06/09 with right hip pain post fall, found to have right intertrochanteric proximal femur fracture. He was also found to
have bilateral lower extremity cellulitis and was started on antibiotics. He underwent right hip intramedullary fixation on 06/11/24. Post-op course c/b worsening renal function in setting of volume overload and delirium. With increasing delirium
in setting of kidney failure, uremia, and progressive symptomatic shortness of breath, decision made to pursue comfort care on 06/18/24.
He is discharged to inpatient hospice on 06/20/24.
Time spent on discharge was 32 minutes.
Important imaging findings :
Procedure findings :
06/17/24
Post-op Diagnosis: right hip intertrochanteric fracture
Procedure Performed: right hip intramedullary fixation
Discharge Plan
-
Referrals:
Andrés Eason MD [Family Provider] -
Prescriptions:
No Action
metoprolol succinate 100 MG tablet extended release 24 hr
100 mg PO DAILY
hydralazine 25 MG tablet
25 mg PO BID
aspirin 81 MG tablet,delayed release (DR/EC)
81 mg PO DAILY
sertraline 50 MG tablet
50 mg PO DAILY
pantoprazole 40 MG tablet,delayed release (DR/EC)
40 mg PO BID
simvastatin 40 MG tablet
40 mg PO QPM
allopurinol 300 MG tablet
300 mg PO DAILY
Digestive Advantage Probiotic 2 billion cell- 140 mg Capsule
1 cap PO DAILY Qty: 0
acetaminophen 325 MG tablet
650 mg PO Q6HPRN PRN (Reason: mild pain/fever>101)
potassium citrate 10 mEq (1,080 mg) Tablet Extended Release
10 meq PO BID
tamsulosin 0.4 MG capsule
0.4 mg PO QPM
amantadine HCl 100 mg Tablet
100 mg PO DAILY
polyethylene glycol 3350 17 gram Powder In Packet
17 g PO DAILYPRN PRN (Reason: constipation)
triamcinolone acetonide 0.1 % Cream
1 applic TOPICAL TID
furosemide 80 mg tablet
80 mg PO BID
Discharge Date and Time
Print Language: CZECH
--- NOTE | 2024-06-20 09:49 | CHAP ---
I made a call to [facility] in [place], the patient's [facility], to request the millinery blocker to come to give Last Rites. I am expecting a call back with his plan.
--- NOTE | 2024-06-20 10:16 | PTCARENOTE ---
pt comfort measures only. boston Rezzie at bedside, AICD turned off. Magnet removed.
--- NOTE | 2024-06-20 10:18 | HOSPNOTE ---
Meet with daughter Jojo at bedside, discussed hospice philosophy and plan of care. Consents obtained for hospice and Dr Christa Alarcon notified of consents. Nurse Clementina notified also. Patient meets GIP level of care criteria requiring IV therapy
to manage symptoms.
--- NOTE | 2024-06-20 10:20 | W.ICD.INACTI ---
ICD Device Inactivated
-
The patient's ICD device has been inactivated by the vendor.
--- NOTE | 2024-06-20 10:35 | PTCARENOTE ---
pt d/c from computer.Chart to be flipped to inpatient hospice.
== END 2024-06-20 10:19 | disposition hospice, inpatient (51) | DRG 480 ==
LOC: 2 SOUTH 12:43
PROVIDERS: Internal Medicine; Physician Assistant Surgical; Student in an Organized Health Care Education/Training Program; ADMITTING PHYSICIAN Internal Medicine; ATTENDING PHYSICIAN Student in an Organized Health Care Education/Training Program; CONSULT PHYSICIAN Orthopaedic Surgery Hand Surgery; CONSULT PHYSICIAN Specialist; EMERGENCY PHYSICIAN Student in an Organized Health Care Education/Training Program; FAMILY PHYSICIAN Family Medicine
PROC: 0QS606Z Reposition Right Upper Femur with Intramedullary Internal Fixation Device, Open Approach (ICD-10-PCS; 2024-06-11)
PROC: 30233N1 Transfusion of Nonautologous Red Blood Cells into Peripheral Vein, Percutaneous Approach (ICD-10-PCS; 2024-06-13)
DX: S72.141A Displaced intertrochanteric fracture of right femur, initial encounter for closed fracture (principal); G92.8 Other toxic encephalopathy; I50.33 Acute on chronic diastolic (congestive) heart failure; D68.69 Other thrombophilia; I13.0 Hypertensive heart and chronic kidney disease with heart failure and stage 1 through stage 4 chronic kidney disease, or unspecified chronic kidney disease; N17.9 Acute kidney failure, unspecified; L03.115 Cellulitis of right lower limb; L03.116 Cellulitis of left lower limb; D62 Acute posthemorrhagic anemia; I25.10 Atherosclerotic heart disease of native coronary artery without angina pectoris; Z66 Do not resuscitate; Z51.5 Encounter for palliative care; W01.0XXA Fall on same level from slipping, tripping and stumbling without subsequent striking against object, initial encounter; E78.2 Mixed hyperlipidemia; I48.0 Paroxysmal atrial fibrillation; G20.A1 Parkinson's disease without dyskinesia, without mention of fluctuations; N18.1 Chronic kidney disease, stage 1; I25.5 Ischemic cardiomyopathy; M10.9 Gout, unspecified; E11.42 Type 2 diabetes mellitus with diabetic polyneuropathy; I70.0 Atherosclerosis of aorta; F32.9 Major depressive disorder, single episode, unspecified; E11.22 Type 2 diabetes mellitus with diabetic chronic kidney disease; F10.20 Alcohol dependence, uncomplicated; N40.0 Benign prostatic hyperplasia without lower urinary tract symptoms; D63.8 Anemia in other chronic diseases classified elsewhere; R33.9 Retention of urine, unspecified; I25.2 Old myocardial infarction; Z79.82 Long term (current) use of aspirin; Z79.899 Other long term (current) drug therapy; Z86.711 Personal history of pulmonary embolism; Z86.718 Personal history of other venous thrombosis and embolism; Z87.891 Personal history of nicotine dependence; Z95.810 Presence of automatic (implantable) cardiac defibrillator
CPT/HCPCS: 70450; 71045; 73502; 73560; 76000; 76700; 80048; 80053; 81003; 81015; 81099; 82550; 82570; 83735; 83880; 84300; 85014; 85018; 85025; 85027; 86850; 86900; 86901; 86920; 92526; 92610; 93005; 93306; 93970; 97110; 97163; 97167; 97530; 97535; 99285; C1713; P9016

== ENCOUNTER 2024-06-20 10:21 | Inpatient (IN) | payer OTHER, SELFPAY ==
[2024-06-20 07:55] VITALS: BP 113/51
--- NOTE | 2024-06-20 10:55 | CHAP ---
[facility] in [place], [facility], will be coming to give him the Sacrament of the Sick/Last Rites this afternoon.
--- NOTE | 2024-06-20 11:08 | HPS.HSE ---
Family Physician
-
Family Physician: NOT KNOW UNKNOWN - PT DOES
Chief Complaint
-
inpatient hospice
History of Present Illness
Mr. René Abarca is a 83 year old male with hx CKD, HFpEF, paroxysmal afib, gout, essential HTN, BPH who presents to the ER 06/09 with right hip pain post fall, found to have right intertrochanteric proximal femur fracture. He was also found to
have bilateral lower extremity cellulitis and was started on antibiotics. He underwent right hip intramedullary fixation on 06/11/24. Post-op course c/b worsening renal function in setting of volume overload and delirium. With increasing delirium
in setting of kidney failure, uremia, and progressive symptomatic shortness of breath, decision made to pursue comfort care on 06/18/24.
He is discharged to inpatient hospice on 06/20/24.
Medical History
Past Medical History
Past Medical History: Reports Other
Additional Past Medical History:
1. Mixed lipidemia.
2. Ischemic cardiomyopathy.
3. DVT on right lower extremity 2012.
4. Gout.
5. History of pulmonary embolism 2012.
6. Parkinson's disease.
7. Hypercoagulable state, secondary.
8. 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
9. Abdominal aortic atherosclerosis.
10.History of myocardial infarction.
11.Hypertensive chronic kidney disease, stage 1 through stage IV.
12.Coronary artery disease - he has an automatic cardioverter-
defibrillator present.
13.Essential hypertension.
14.History of alcoholism, but in recovery.
15.History of major depressive disorder.
16.Atrial fibrillation.
17.Ex-smoker.
Past Surgical History: Reports Other
Additional Past Surgical History:
1. ICD.
2. Tonsillectomy.
3. Carotid surgery 2017.
4. ICD generator change in 2014.
Social History
Tobacco: Non-smoker
Alcohol: Occasional
Drug: None
Family History
Family History: Not pertinent
Allergies / Home Medications
Allergies reflects when Allergies were last updated in [employer].
Home Medications with original date entered in [employer]
Allergy/Medication List:
Allergies
Allergy/AdvReac Type Severity Reaction Status Date / Time
rivaroxaban [From Xarelto] Allergy GI Bleed Verified 01/27/24 09:07
Home Medications
aspirin 81 mg tablet,delayed release 81 mg PO DAILY Blood clot prevention/tx 05/14/18
hydralazine 25 mg tablet 25 mg PO BID Blood pressure 05/14/18
metoprolol succinate 100 mg tablet,extended release 24 hr 100 mg PO DAILY Arrhythmia 05/14/18
sertraline 50 mg tablet 50 mg PO DAILY Mental Health 05/14/18
pantoprazole 40 mg tablet,delayed release 40 mg PO BID Gastrointestinal issue 06/05/18
Bacillus coagulans 2 billion cell-calcium 140 mg capsule (Digestive Advantage Probiotic) 1 cap PO DAILY Gastrointestinal issue ##0 08/20/20
allopurinol 300 mg tablet 300 mg PO DAILY Gout 08/20/20
simvastatin 40 mg tablet 40 mg PO QPM High cholesterol 08/20/20
acetaminophen 325 mg tablet 650 mg PO Q6HPRN PRN mild pain/fever>101 05/30/21
amantadine HCl 100 mg tablet 100 mg PO DAILY Neurological Condition 07/18/22
polyethylene glycol 3350 17 gram oral powder packet 17 g PO DAILYPRN PRN constipation 07/18/22
potassium citrate 10 mEq (1,080 mg) tablet,extended release 10 meq PO BID Electrolyte Repletion 07/18/22
tamsulosin 0.4 mg capsule 0.4 mg PO QPM Urinary Issue 07/18/22
triamcinolone acetonide 0.1 % topical cream 1 applic topical TID Skin Issues 10/29/23
furosemide 80 mg tablet 80 mg PO BID Fluid Retention/Swelling 06/09/24
Review of Systems
-
Unable to obtain full review of systems at this time due to: Patient Non-verbal
History Source: Patient
Physical Exam
Physical Exam
General: Comfortable
HEENT: NormoCephalic, Anicteric and Atraumatic
Respiratory: No Wheezes
Cardiac: S1/S2, Regular Rhythm and JVD
GI: Soft and Non Tender
Musculoskeletal: Other (venous stasis discoloration, edema )
Skin: No Rash
Neuro: Sedated
Psych: Calm
Data Reviewed
-
Diagnostic Radiology: Report Reviewed by me
Lab Data: Labs Reviewed by me
Impression/Plan
-
Mr. René Abarca is a 83 year old male with hx CKD, HFpEF, paroxysmal afib, gout, essential HTN, BPH who presents to the ER 06/09 with right hip pain post fall, found to have right intertrochanteric proximal femur fracture. Post-op course c/b
worsening renal function, anemia. He has also been treated for LE cellulitis. With increasing delirium in setting of kidney failure, uremia, shortness of breath; decision made to pursue comfort care on 06/18/24.
acute right intertrochanteric proximal femur fracture
-06/11/24 s/p Right hip intramedullary fixation
-appreciate Orthopedics
-patient is now comfort care (see below)
Acute Renal Failure
Acute on Chronic HFpEF
chronic kidney disease
Uremia
TME 2/2 Above
-s/p diuresis with improved urine output and creatinine but progressive delirium/confusion and shortness of breath
-multiple GOC discussions had with family and decision made for comfort care
-transitioned to inpatient hospice on 06/20/24
-IV Morphine gtt
-IV Ativan PRN
-appreciate hospice team
Hx AICD
shut off morning of 06/20
Urinary Retention - s/p marcus catheter placement on 06/13
Bilateral Cellulitis -s/p treatment with antibiotics
acute anemia on anemia of chronic disease (possibly due to renal cause
post-op anemia
-s/p 1 unit PRBC on 06/13
-no further lab checks
Paroxysmal afib-
Gout
Essential HTN
BPH
HLD
-stop oral medications
DNR
76 minutes spent on patient care
--- NOTE | 2024-06-20 11:19 | HOSPNOTE ---
Patient mets GIP level of care appropriateness as patient requires IV Morphine continuos infusion,Ativan x 2, and Robinul x3 in last 24 hours. Patient coughing with small bites of food, hospice nurse suggested soft foods such as pudding and ice
cream for patient when is asks to daughter Jojo.
Consents signed and symptom management and expectations reviewed with daughter Jojo. Daughter is aware that patient has hours to days of life remaining.
Daughter states is meeting with [facility] home in [place].
[2024-06-20] MEDS: MORPHINE 100 IV (11:40)
--- NOTE | 2024-06-20 12:11 | PTCARENOTE ---
chart flipped to inpatient hospice. Morphine drip continues on step 1. Pt appearing comfortable at this time.
[2024-06-20] MEDS: ROBINUL 0.2 MG IV (12:31)
[2024-06-20] MEDS: ATIVAN 1 MG IV ×3 (12:40→18:39)
[2024-06-20] MEDS: NSS (PRESERVATIVE FREE) 0.5 ML IV ×3 (12:40→18:39)
[2024-06-20] MEDS: MORPHINE SULFATE 2 MG IV ×5 (16:36→20:50)
--- NOTE | 2024-06-20 19:23 | PTCARENOTE ---
pt transferred for 2S to 2N this evening. received by this RN. morphine gtt on step 1. hung this afternoon. pt now on step 2 gtt per protocol. suction at bedside due to increase in oral secretions. scant output. pt with marcus catheter in place at
this time. daughter at bedside. see worklist for proper documentation.
[2024-06-20 20:15] VITALS: BP 115/61
--- NOTE | 2024-06-20 22:46 | W.PN.DEATH ---
Addendum entered and electronically signed by DAVEY Rainey 06/21/24 06:58:
daughter Jojo updated about fathers passing
Original Note:
Pronouncement of
-
Called to see patient to pronounce.
No spontaneous heart tones or respirations noted.
Patient not responsive to verbal stimuli.
Patient is pronounced .
Time of : 22:43
Date of : 06/20/24
Cause of : uremia due to chronic kidney disease
Family Notified: Yes (left message for daughter kavitha bundy)
== END 2024-06-21 01:32 | disposition expired | DRG 951 ==
LOC: 2 NORTH 10:21
PROVIDERS: ADMITTING PHYSICIAN Student in an Organized Health Care Education/Training Program
DX: Z51.5 Encounter for palliative care (principal); S72.141A Displaced intertrochanteric fracture of right femur, initial encounter for closed fracture; I50.33 Acute on chronic diastolic (congestive) heart failure; I13.0 Hypertensive heart and chronic kidney disease with heart failure and stage 1 through stage 4 chronic kidney disease, or unspecified chronic kidney disease; L03.115 Cellulitis of right lower limb; L03.116 Cellulitis of left lower limb; F05 Delirium due to known physiological condition; D68.69 Other thrombophilia; N17.8 Other acute kidney failure; N99.0 Postprocedural (acute) (chronic) kidney failure; N18.31 Chronic kidney disease, stage 3a; I48.0 Paroxysmal atrial fibrillation; M10.9 Gout, unspecified; N40.0 Benign prostatic hyperplasia without lower urinary tract symptoms; R06.02 Shortness of breath; E78.2 Mixed hyperlipidemia; I25.5 Ischemic cardiomyopathy; G20.A1 Parkinson's disease without dyskinesia, without mention of fluctuations; F32.9 Major depressive disorder, single episode, unspecified; F10.21 Alcohol dependence, in remission; I25.10 Atherosclerotic heart disease of native coronary artery without angina pectoris; E11.22 Type 2 diabetes mellitus with diabetic chronic kidney disease; D63.1 Anemia in chronic kidney disease; E11.42 Type 2 diabetes mellitus with diabetic polyneuropathy; I70.0 Atherosclerosis of aorta; R33.9 Retention of urine, unspecified; Z66 Do not resuscitate; Z86.718 Personal history of other venous thrombosis and embolism; Z86.711 Personal history of pulmonary embolism; Z87.891 Personal history of nicotine dependence; I25.2 Old myocardial infarction; Z88.8 Allergy status to other drugs, medicaments and biological substances; Z79.82 Long term (current) use of aspirin